=== PATIENT | male | born 1965 | race Caucasian/White ===

== ENCOUNTER 2019-09-13 20:27 | Emergency (ER) | payer OTHER ==
[~2019-09-13] VITALS: Ht 177.8 cm; Wt 122.5 kg
[2019-09-13] MEDS ORDERED: TRAZODONE HCL100 MG PO (20:43)
[2019-09-13] MEDS ORDERED: TERBINAFINE HC250 MG PO (20:43)
[2019-09-13] MEDS ORDERED: BASAGLAR K100 UNIT/1 SUB-Q (20:44)
[2019-09-13] MEDS ORDERED: DULOXETINE HCL60 MG PO (20:44)
[2019-09-13] MEDS ORDERED: HYDROXYZINE HCL50 MG PO (20:44)
[2019-09-13] MEDS ORDERED: VRAYLAR1.5 MG PO (20:47)
[2019-09-13] MEDS ORDERED: GLUCOPHAGE1000 MG PO (20:47)
[2019-09-13] MEDS ORDERED: NAPROXEN375 MG PO (20:47)
[2019-09-13] MEDS ORDERED: LIPITOR20 MG PO (20:48)
[2019-09-13] MEDS ORDERED: LISINOPRIL10 MG PO (20:48)
[2019-09-13] MEDS ORDERED: ASPIR 8181 MG PO (20:48)
[2019-09-13] MEDS ORDERED: AFREZZA SUB-Q (20:50)
[2019-09-13] MEDS ORDERED: KEFLEX500 MG PO (22:57)
== END 2019-09-13 23:06 | disposition home or self-care (01) ==
LOC: ED 20:27
DX: L08.9 Local infection of the skin and subcutaneous tissue, unspecified (principal); E11.9 Type 2 diabetes mellitus without complications; F31.9 Bipolar disorder, unspecified; Z87.891 Personal history of nicotine dependence; Z88.2 Allergy status to sulfonamides; Z79.899 Other long term (current) drug therapy
CPT/HCPCS: 99283; A9270

== ENCOUNTER 2019-11-22 17:49 | Emergency (ER) | payer OTHER ==
[~2019-11-22] VITALS: Ht 177.8 cm; Wt 128.8 kg
[~2019-11-22 17:49] MED LIST: AFREZZA SUB-Q; ASPIR 8181 MG PO; BASAGLAR K100 UNIT/1 SUB-Q; DULOXETINE HCL60 MG PO; GLUCOPHAGE1000 MG PO; HYDROXYZINE HCL50 MG PO; KEFLEX500 MG PO; LIPITOR20 MG PO; LISINOPRIL10 MG PO; NAPROXEN375 MG PO; TERBINAFINE HC250 MG PO; TRAZODONE HCL100 MG PO; VRAYLAR1.5 MG PO
--- OUTSIDE RECORDS SUMMARY | 2019-11-22 17:52 | XMS ---
PreManage Notification: MARGARITA LENTZ Security Toe Former Events No recent Security Events currently on file CRITERIA MET - [facility] CARE PROVIDERS There are no care providers on record at this time. Hakeem has no Care Guidelines for this patient. [place] VISIT COUNT (12 MO.) 2 ROSE Chapin TOTAL 2 NOTE: Visits indicate total known visits. ED/UCC VISIT TRACKING (12 MO.) 11/22/2019 17:49 RO[facility] [place] TYPE: Emergency COMPLAINT: - CHEST PAIN 09/13/2019 20:28 [facility] [place] TYPE: Emergency COMPLAINT: - POSS. WOUND INFECTION DIAGNOSES: - Local infection of the skin and subcutaneous tissue, unspecif - Type 2 diabetes mellitus without complications - Bipolar disorder, unspecified - Other intermodal truck driver (current) drug therapy - Allergy status to sulfonamides status - Personal history of nicotine dependence INPATIENT VISIT TRACKING (12 MO.) No inpatient visits to display in this time frame [email or web address]
[2019-11-22] MEDS ORDERED: VRAYLAR6 MG PO (18:04)
[2019-11-22] MEDS ORDERED: CLONAZEPAM1 MG PO (18:04)
[2019-11-22] MEDS ORDERED: NOVOLIN R100 UNIT/1 INJ (18:04)
--- NOTE | 2019-11-23 12:11 | EKG ---
[facility] [address] [place] [address] Signed Normal sinus rhythm Low voltage QRS Cannot rule out Inferior infarct , age undetermined Abnormal ECG When compared with ECG of 03-AUG-2019 11:37, Minimal criteria for Inferior infarct are now present T wave inversion now evident in Inferior leads Confirmed by JULIANA HOLM DO ([id number]) on 11/23/2019 12:11:46 PM Electronically Signed By: JULIANA HOLM DO 11/23/19 1211 PATIENT NAME: MARGARITA LENTZ Electrocardiogram DATE OF : 61 PHYSICIAN: JULIANA HOLM DO REPORT #: [id number] REPORT IS CONFIDENTIAL AND NOT TO BE RELEASED WITHOUT AUTHORIZATION
== END 2019-11-22 21:05 | disposition short-term general hospital (02) ==
LOC: ED 17:49
DX: I21.4 Non-ST elevation (NSTEMI) myocardial infarction (principal); E11.9 Type 2 diabetes mellitus without complications; F17.200 Nicotine dependence, unspecified, uncomplicated; Z88.0 Allergy status to penicillin; Z91.030 Bee allergy status; Z88.5 Allergy status to narcotic agent; Z79.899 Other long term (current) drug therapy
CPT/HCPCS: 71045; 80053; 83735; 84484; 85025; 85379; 93005; 93010; 96372; 99285-25; J1650; J7030

== ENCOUNTER 2020-04-25 09:27 | Emergency (ER) | payer OTHER ==
[~2020-04-25] VITALS: Ht 177.8 cm; Wt 117.6 kg
--- OUTSIDE RECORDS SUMMARY | ~2020-04-25 | XMS | Encounter Summary ---
Demographics + + + | Address | [address] | | | [place] [address] | + + + | Home Phone | | + + + | Preferred Language | Unknown | + + + | Marital Status | | + + + | Catholic Affiliation | Unknown | + + + | Race | White | + + + | Ethnic Group | Not or | + + + Author + + + | Author | [facility] | | | and [place] | + + + | Organization | [facility] | | | and [place] | + + + | Address | Unknown | + + + | Phone | Unavailable | + + + Support + + +---------+ + | Name | Relationship | Address | Phone | + + +---------+ + | Provided None | ECON | Unknown | | + + +---------+ + Care Team Providers + +------+ + | Care Custom Decorating Consultant Name | Role | Phone | + +------+ + | Sacha Cline MD | PCP | | + +------+ + Reason for Visit +--------+--------+ + | Reason | Onset | Comments | | | Date | | +--------+--------+ + | Other | 12/06/ | plan of care | | | 2020 | | +--------+--------+ + Encounter Details +--------+ + + + + | Date | Type | Department | Care Team | Description | +--------+ + + + + | 12/06/ | Telephone | [facility] [place] | Edd Mccloud MD | Other (plan of care) | | 2019 | | CARDIOLOGY [address] | | | | | [place], | [place], [place] | | | | | [place] [address] | [address] | | | | | [phone] | | | +--------+ + + + + Social History + +-------+ +--------+ + | Tobacco Use | Types | Packs/Day | Years | Date | | | | | Used | | + +-------+ +--------+ + | Current Every Day | | 1 | | Started: 10/10/2019 | | Smoker | | | | | + +-------+ +--------+ + + +---+---+---+ | Smokeless Tobacco: | | | | | Never Used | | | | + +---+---+---+ + + +---------+ + | Alcohol Use | Drinks/Week | oz/Week | Comments | + + +---------+ + | Never | | | | + + +---------+ + + + + + | Alcohol Habits | Answer | Date Recorded | + + + + | How often do you have a drink containing | Never | 11/22/2019 | | alcohol? | | | + + + + | How many drinks containing alcohol do you | Not asked | | | have on a typical day when you are | | | | drinking? | | | + + + + | How often do you have six or more drinks on | Not asked | | | one occasion? | | | + + + + + + + | Sex Assigned at | Date Recorded | | | | + + + | Not on file | | + + + documented as of this encounter Miscellaneous Notes Telephone Encounter - Tyra Simpson - 12/09/2019 3:14 PM PDT01/10/20 @ 1130Kishorei hitesh signed by Tyra Simpson at 12/09/2019 3:14 PM PDTTelephone Encounter - Tyra Simpson - 12/07/2019 9:38 AM PDTCalled lvm for patient to schedule 30 day follow up with Dr. Mccloud Called Dr. Cline's office requested referral from [place], she will work on getting it reinaldo roved sent over elepho ne Encounter - Sarita Sneed RN - 12/07/2019 7:53 AM PDTI will ask PSR's to please coor dinate appointment with patient ...........................................Sarita Sneed RN, on 12/07/19 at 7:53 AM elephone Encounter - Sarita Sneed RN - 12/07/2019 7:53 AM PDT----- Message from Rosanne Field RN sent a t 12/06/2019 3:37 PM PDT ----- Regarding: follow up apt Please schedule 30 day follow up appointment. Rosanne Field RN documented in this e ncounter Plan of Treatment Not on filedocumented as of this encounter Visit Diagnoses Not on filedocumented in this encounter"
--- OUTSIDE RECORDS SUMMARY | ~2020-04-25 | XMS | Encounter Summary ---
Demographics + + + | Address | [address] | | | [place] [address] | + + + | Home Phone | | + + + | Preferred Language | Unknown | + + + | Marital Status | | + + + | Evangelical Affiliation | Unknown | + + + | Race | White | + + + | Ethnic Group | Not or | + + + Author + + + | Author | [facility] | | | and [place] | + + + | Organization | [facility] | | | and [...] Team Providers + +------+ + | Care Wildlife Control Agent Name | Role | Phone | + +------+ + | Sacha Cline MD | PCP | | + +------+ + Reason for Visit +--------+--------+ + | Reason | Onset | Comments | | | Date | | +--------+--------+ + | Other | 03/26/ | no show for test | | | 2020 | | +--------+--------+ + Encounter Details +--------+ + + + + | Date | Type | Department | Care Team | Description | +--------+ + + + + | 03/26/ | Telephone | [facility] | Edd [facility]cloud MD | Other (no show for | 2019 | | CARDIOLOGY [address] | test) | | | | [place], | [place] | | | | | [place] [address] | [address] | | | | | [phone] | | | +--------+ + + + [...] this encounter Miscellaneous Notes Telephone Encounter - Sarita Sneed RN - 03/26/2020 1:00 PM PDTAttempted to contact graham valentino by home number, received a recording that the number is no longer in service. There a re no other contacts listed in chart. ...........................................Sarita stone, RN, on 03/26/20 at 1:00 PM PDT elephone Encounter - Sarita Sneed RN - 03/26/2020 7:33 AM PDTPatient has an appointment for follow up on 04/17/20 ...........................................Sarita Sneed RN, on 03/26/20 at 7: 33 AM PDT elephone Encounter - Sarita Sneed RN - 03/26/2020 7:33 AM PDT----- Message from Vincent Longo RRT sent at 03/23/2020 10:25 AM PDT ----- Regarding: no show for stress test Patient of Dr Mccloud was a no show for his stress test today documented in this e ncounter Plan of Treatment Not on filedocumented as of this encounter Visit Diagnoses Not on filedocumented in this encounter"
--- OUTSIDE RECORDS SUMMARY | ~2020-04-25 | XMS | Encounter Summary ---
Demographics + + + | Address | [address] | | | [place] [address] | + + + | Home Phone | | + + + | Preferred Language | Unknown | + + + | Marital Status | | + + + | Pentecostal Affiliation | Unknown | + + + | Race | White | + + + | Ethnic Group | Not or | + + + Author + + + | Author | [facility] | | | and [place] | + + + | Organization | [facility] | | | [...] Team Providers + +------+ + | Care Hybrid Derivatives Trader Name | Role | Phone | + +------+ + | Sacha Cline MD | PCP | | + +------+ + Reason for Referral Diagnostic/Screening (Routine) + +--------+ + + + + | Status | Reason | Specialty | Diagnoses / | Referred By | Referred To | | | | | Procedures | Contact | Contact | + +--------+ + + + + | Authorized | | Radiology | Diagnoses | [place], | [facility] | | | | | NSTEMI | Edd Bates MD | Medicine | | | | | (non-ST | [address] | | | | | elevated | [address] | [place], | | | | | myocardial | [place], | [place] | | | | | infarction) | [place] [address] | [address] | | | | | (HCC) | Phone: | Phone: | | | | | Procedures | [phone] | [phone] | | | | | NM Nuclear | Fax: | Fax: | | | | | Stress Test | [phone] | [phone] | | | | | (Exercise) | | | + +--------+ + + + + Reason for Visit + + + | Reason | Comments | + + + | Hospital Follow-up | | + + + Encounter Details +--------+---------+ + + + | Date | Type | Department | Care Team | Description | +--------+---------+ + + + | 01/09/ | Office | [facility] [place] | Edd Mccloud MD | NSTEMI (non-ST | | 2019 | Visit | CARDIOLOGY [address] | elevated myocardial | | | | [place], | [place], [place] | infarction) (HCC) | | | | [place] [address] | [address] | (Primary Dx) | | | | [phone] | | | +--------+---------+ + + + Social History + +-------+ [...] + + documented as of this encounter Last Filed Vital Signs + + + + + | Vital Sign | Reading | Time Taken | Comments | + + + + + | Blood Pressure | 128/62 | 01/10/2020 9:29 AM | | | | | PDT | | + + + + + | Pulse | 76 | 01/10/2020 9:29 AM | | | | | PDT | | + + + + + | Temperature | - | - | | + + + + + | Respiratory Rate | 18 | 01/10/2020 9:29 AM | | | | | PDT | | + + + + + | Oxygen Saturation | - | - | | + + + + + | Inhaled Oxygen | - | - | | | Concentration | | | | + + + + + | Weight | 124 kg (273 lb 5.9 | 01/10/2020 9:29 AM | | | | oz) | PDT | | + + + + + | Height | 177.8 cm (5' 10") | 01/10/2020 9:29 AM | | | | | PDT | | + + + + + | Body Mass Index | 39.22 | 01/10/2020 9:29 AM | | | | | PDT | | + + + + + documented in this encounter Patient Instructions Patient Instructions Sergei Villeda RN - 01/10/2020 10:00 AM PDT Exercise Myoview Date: Check-in Time: Where to Check In: Instructions 1. Nothing to eat or drink anything 4 hours prior to test 2. DO NOT drink caffeine 12 hours prior to the test. 3. DO NOT take any Metoprolol or Nitro SL the night before or the morning of the test. 4. You can take all other medications the morning of the test with a small sip of water. 5. Please bring a list of your current medications with you. 6. Exercise Myoview: wear comfortable clothes and walking shoes. Resting Portion of test: Date: Check-in Time: Where to Check In: Follow up appointment: follow up after Stress Provider: Edd Mccloud MD Date: Check-In Time: documented in this encounter Progress Notes Edd Mccloud MD - 01/10/2020 10:00 AM PDT PATIENT NAME: Magdaleno Rick : 1965: AGE: 54 y.o. PRIMARY CARE: Sacha Cline MD OUTPATIENT FOLLOW UP VISIT Date of Service: 01/10/20 PROBLEMS ADDRESSED AT THIS VISIT: 1. NSTEMI (non-ST elevated myocardial infarction) (HCC) NM Nuclear Stress Test (Exercise) PRESENT ILLNESS: Magdaelno Rick is a 54 y.o. male had a recent occluded RCA. He states now that he richards s had some sharp pain in his chest going to his arms. This happens with exertion and reliev ed with nitroglycerin after 2 to 3 minutes. The symptoms are different from his an STEMI at which time he had more of a burning sensation. MEDICAL, SURGICAL, AND PERSONAL HISTORY Past Medical, Surgical, Family, and Social History details are found in EPIC and not reprod uced here. Changes since last visit: As noted above CURRENT PROBLEMS Patient Active Problem List Diagnosis NSTEMI (non-ST elevated myocardial infarction) CURRENT MEDICATIONS Current Outpatient Medications Medication Sig Dispense Refill albuterol 90 mcg/puff inhaler Inhale 1-2 puffs into the lungs every 4 hours as needed f or Wheezing. 1 Inhaler 0 aspirin 81 mg chewable tablet Chew and swallow 1 tablet Daily. 30 tablet 0 atorvaSTATin (LIPITOR) 80 MG tablet Take 1 tablet by mouth nightly. 30 tablet 0 cariprazine (VRAYLAR) 6 mg capsule Take 6 mg by mouth Daily Patient is taking 9mg daily . clopidogrel (PLAVIX) 75 mg tablet Take 1 tablet by mouth Daily. 90 tablet 0 DULoxetine (CYMBALTA) [address] capsule Take 60 mg by mouth Daily. hydrOXYzine (ATARAX) 50 MG tablet Take 100 mg by mouth nightly. insulin glargine (BASAGLAR KWIKPEN) 100 units/mL injection (pen) Inject 30 Units under the skin Daily. insulin regular (HUMULIN R, NOVOLIN R) 100 units/mL injection (vial) Inject 10 Units un nolan the skin 3 times daily (before meals). metFORMIN (GLUCOPHAGE) 1000 MG tablet Start 1/2 pill twice daily with meals on the a.m. of 11/26, increasing as tolerated to 1 pill twice daily. metoprolol tartrate (LOPRESSOR) 25 mg tablet Take 1 tablet by mouth 2 times daily. 100 tablet 0 nitroglycerin (NITROSTAT) 0.[address] 1 tablet under the tongue every 5 bradley xin as needed for Chest pain. 25 tablet 0 prazosin (MINIPRESS) 2 MG capsule Take 2 mg by mouth nightly. SUMAtriptan (IMITREX) 100 mg tablet Take 1 tablet by mouth 2 times daily, at least 2 ho urs between doses traZODone (DESYREL) 100 mg tablet Take 200 mg by mouth nightly. No current facility-administered medications for this visit. ALLERGIES Allergies Allergen Reactions Bee Venom Swelling Penicillins Shortness Of Breath Wasp Venom Protein Swelling Codeine Rash ROSNEW OR RECENT DATA: Exam centers radial pulse intact. Chest is clear. Vital signs are within normal limits. Strength shows no edema. ASSESSMENT: Atypical chest pains. Doubt any ischemic component. PLAN: Medication changes: None. Testing ordered today: Nuclear treadmill test. Return return after above. Electronically signed by: Edd Mccloud MD [facility] 01/10/2020 Portions of this chart may have been created with [employer] voice recognition software. Occasi onal wrong-word or sound-alike substitutions may have occurred due to the inherent fabian itations of voice recognition software. Please read the chart carefully and recognize, using context, where these substitutions have occurred. documented in this encounter Plan of Treatment + + +--------+ + + | Name | Type | Priori | Associated Diagnoses | Order Schedule | | | | ty | | | + + +--------+ + + | NM Nuclear Stress | Cardiac | Routin | NSTEMI (non-ST | Expected: | | Test (Exercise) | Nuclear | e | elevated myocardial | 01/10/2020, Expires: | | | Medicine | | infarction) ([facility]) | 01/09/2021 | + + +--------+ + + documented as of this encounter Visit Diagnoses + + | Diagnosis | + + | NSTEMI (non-ST elevated myocardial infarction) ([facility]) - Primary Acute myocardial | | infarction, subendocardial infarction, episode of care unspecified | + + documented in this encounter
--- OUTSIDE RECORDS SUMMARY | ~2020-04-25 | XMS | Encounter Summary ---
Demographics + + + | Address | [address] | | | [place] [address] | + + + | Home Phone | | + + + | Preferred Language | Unknown | + + + | Marital Status | | + + + | Rastafarian Affiliation | UNK | + + + | Race | White | + + + | Ethnic Group | Not or | + + + Author + + + | Author | [facility] | + + + | Organization | [facility] | + + + | Address | Unknown | + + + | Phone | Unavailable | + + + Support + + +---------+ + | Name | Relationship | Address | Phone | + + +---------+ + | None Per Pt | ECON | Unknown | Unavailable | + + +---------+ + Care Team Providers + +------+ + | Care Director Consumer Name | Role | Phone | + +------+ + PCP | Unavailable | + +------+ + Encounter Details +--------+ + + + + | Date | Type | Department | Care Team | Description | +--------+ + + + + | 09/06/ | Procedure - | Vascular Surgery | Lab, Vascular | Vascular | | 1997 | | at [facility] [address] | | | | | Transcribed | [address] | | | | | | Physicians [place], | | | | | | [address] Floor | | | | | | [place], [place] | | | | | | [address] | | | | | | [phone] | | | +--------+ + + + + Social History + +-------+ +--------+------+ | Tobacco Use | Types | Packs/Day | Years | Date | | | | | Used | | + +-------+ +--------+------+ | Never Assessed | | | | | + +-------+ +--------+------+ + + + | Sex Assigned at | Date Recorded | | | | + + + | Not on file | | + + + documented as of this encounter Procedure Notes Lab, Vascular - 09/06/1997 12:00 AM PSTAssociated Order(s): VASCULAR FLOW IMAGING, NONCARDI AC VASCULAR LAB DATE: 09/06/97 Referring Physician: Steve Examination: Peripheral arterial Clinical Indications: Left leg pain with walking Findings: In the right leg there is a palpable femoral, popliteal, and pedal pulse. The waveforms are normal and the pressure ratios vary from greater than 1.6 in the upper thigh to 1.22 at the ankle. There is a toe brachial index of 1.16. In the left leg there is a palpable femoral, popliteal, and pedal pulse. Waveforms are normal. The pressure ratios vary from greater than 1.58 in the upper thigh to 1.27 at the ankle with a toe brachial index of 1. The patient exercised on the treadmill and developed ankle and hip discomfort in the left leg after three minutes of walking. He was able to go for 5 minutes of walking with no ischemic pressure response to exercise in either lower extremity. Impression: Normal peripheral arterial examination. The patient's left hip pain with walking is not explained on the basis of axial artery vascular insufficiency. Asim Gunn M.D. GLM/lh A cc: documented in this encou nter Plan of Treatment Not on filedocumented as of this encounter Procedures + +--------+ + + + | Procedure Name | Priori | Date/Time | Associated Diagnosis | Comments | | | ty | | | | + +--------+ + + + | VASCULAR FLOW | | 09/06/1997 | | Results for this | | IMAGING, NONCARDIAC | | 12:00 AM | | procedure are in the | | - VASC LAB | | PST | | results section. | + +--------+ + + + documented in this encounter Results VASCULAR FLOW IMAGING, NONCARDIAC (09/06/1997 12:00 AM PST) + + | Procedure Note | + + | 09/06/1997 12:00 AM PST | | VASCULAR LAB DATE: 09/06/97 | | | | Referring Physician: Steve | | | | Examination: Peripheral arterial | | | | Clinical Indications: Left leg pain with walking | | | | Findings: In the right leg there is a palpable femoral, popliteal, and pedal | | pulse. The waveforms are normal and the pressure ratios vary from greater | | than 1.6 in the upper thigh to 1.22 at the ankle. There is a toe brachial | | index of 1.16. In the left leg there is a palpable femoral, popliteal, and | | pedal pulse. Waveforms are normal. The pressure ratios vary from greater | | than 1.58 in the upper thigh to 1.27 at the ankle with a toe brachial index | | of 1. | | | | The patient exercised on the treadmill and developed ankle and hip | | discomfort in the left leg after three minutes of walking. He was able to | | go for 5 minutes of walking with no ischemic pressure response to exercise | | in either lower extremity. | | | | Impression: Normal peripheral arterial examination. The patient's left hip | | pain with walking is not explained on the basis of axial artery vascular | | insufficiency. | | | | | | | | | | | | | | | | | | | | | | | | | | | | Asim Gunn M.D. | | | | RAF/lh | | | | A | | cc: | | | + + documented in this encounter Visit Diagnoses Not on filedocumented in this encounter"
--- OUTSIDE RECORDS SUMMARY | ~2020-04-25 | XMS | Encounter Summary ---
Demographics + + + | Address | [address] | | | [place] [address] | + + + | Home Phone | | + + + | Preferred Language | Unknown | + + + | Marital Status | | + + + | Advent Affiliation | UNK | + + + | Race | White | + + + | Ethnic Group | Not or | + + + Author + + + | Author | [facility] | + + + | Organization | [facility] | + + + | Address | Unknown | + + + | Phone | Unavailable | + + + Support + + +---------+ + | Name | Relationship | Address | Phone | + + +---------+ + | None Per Pt | ECON | Unknown | Unavailable | + + +---------+ + Care Team Providers + +------+ + | Care Copyright Clerk Name | Role | Phone | + +------+ + PCP | Unavailable | + +------+ + Encounter Details +--------+ + + + + | Date | Type | Department | Care Team | Description | +--------+ + + + + | 09/19/ | Abstract | Neurology at | Unknown . | | | 2019 | | [facility] & | | | | | | Healing [address] | | | | | | kathi [facility] | | | | | | [facility] and Healing, | | | | | | [facility] , | | | | | | Floor [place], [place] | | | | | | [address] | | | | | | [phone] | | | +--------+ + + + [...] + + documented as of this encounter Plan of Treatment Not on filedocumented as of this encounter Visit Diagnoses Not on filedocumented in this encounter"
--- OUTSIDE RECORDS SUMMARY | ~2020-04-25 | XMS | Encounter Summary ---
Demographics + + + | Address | [address] | | | [place] [address] | + + + | Home Phone | | + + + | Preferred Language | Unknown | + + + | Marital Status | | + + + | Baptist Affiliation | UNK | + + + | Race | White | + + + | Ethnic Group | Not or | + + + Author + + + | Author | [facility] | + + + | Organization | [facility] | + + + | Address | Unknown | + + + | Phone | Unavailable | + + + Support + + +---------+ + | Name | Relationship | Address | Phone | + + +---------+ + | None Per Pt | ECON | Unknown | Unavailable | + + +---------+ + Care Team Providers + +------+ + | Care Agricultural Engineering Technologist Name | Role | Phone | + +------+ + | Pending Pcp Addition | PCP | Unavailable | + +------+ + Reason for Visit Intake Referral (Routine) +--------+--------+ + + + + | Status | Reason | Specialty | Diagnoses / | Referred By | Referred To | | | | | Procedures | Contact | Contact | +--------+--------+ + + + + | Closed | | Neurology | Diagnoses | [place], | [facility] | | | | | Parkinson's | Sacha Das MD | Disorder Chh1 | | | | | disease | [place] | [address] | | | | | Procedures | Primary Care | [facility] | | | | | [place] NEW | Clinic | for Health | | | | | PATIENT | [address] and Healing, | | | | | [address] [place] | [place] | [address], | | | | | EST PATIENT | [place], | 8th Floor | | | | | LEVEL V | [place] [address] | [place], [place] | | | | | | Phone: | [address] | | | | | | [phone] | Phone: | | | | | | Fax: | [phone] | | | | | | [phone] | Fax: | | | | | | | [phone] | +--------+--------+ + + + + Encounter Details +--------+ + + + + | Date | Type | Department | Care Team | Description | +--------+ + + + + | 11/20/ | Video/TeleH | Neurology Movement | [place], | | | 2019 | [facility] | Disorders Clinic at | MD Beryl [address] | | | | [address] | [facility] | [facility] | | | | | and Healing [address] | [place], [place] | | | | | [facility] | [address] | | | | | Health and Healing, | [phone] | | | | | [facility] | | | | | | Floor [facility] [place] | | | | | | [address] | | | | | | [phone] | | | +--------+ + + + [...] + + documented as of this encounter Progress Notes Beryl Hamilton MD - 11/21/2019 3:55 PM [facility] called the patient. He let me know that jerrod armenta has not been able to download the mychart. He received a call earlier today confirming the phone visit. I explained that I need to have a virtual visit with him in order to be able to examine him . I will ask that he reschedule this appointment after the Mychart is activated. Beryl Hamilton MD. MSCE, Pulp Grinder of Neurology [facility] [address] [place] [address] documented in this encounter Plan of Treatment Not on filedocumented as of this encounter Visit Diagnoses + + | Diagnosis | + + | Parkinson's disease (HCC) - Primary Paralysis agitans | + + documented in this encounter"
--- OUTSIDE RECORDS SUMMARY | ~2020-04-25 | XMS | Encounter Summary ---
Demographics + + + | Address | [address] | | | [place] [address] | + + + | Home Phone | | + + + | Preferred Language | Unknown | + + + | Marital Status | | + + + | Spiritism Affiliation | UNK | + + + | Race | White | + + + | Ethnic Group | Not or | + + + Author + + + | Author | [facility] | + + + | Organization | [facility] | + + + | Address | Unknown | + + + | Phone | Unavailable | + + + Support + + +---------+ + | Name | Relationship | Address | Phone | + + +---------+ + | None Per Pt | ECON | Unknown | Unavailable | + + +---------+ + Care Team Providers + +------+ + | Care Electric Motor Repairing Supervisor Name | Role | Phone | + +------+ + PCP | Unavailable | + +------+ + Encounter Details +--------+ + + + + | Date | Type | Department | Care Team | Description | +--------+ + + + + | 09/19/ | Abstract | Neurology at | Clinic, Neurology | | | 2020 | | [facility] & | | | | | | Healing [address] | | | | | | [facility] for | | | | | | Health and Healing, | | | | | | Building | | | | | | Floor [place], [place] | | | | | | [address] | | | | | | [phone] | | | +--------+ + + + [...]
--- OUTSIDE RECORDS SUMMARY | ~2020-04-25 | XMS | Encounter Summary ---
Demographics + + + | Address | [address] | | | [place] [address] | + + + | Home Phone | | + + + | Preferred Language | Unknown | + + + | Marital Status | | + + + | Gnosticism Affiliation | Unknown | + + + | Race | White | + + + | Ethnic Group | Not or | + + + Author + + + | Author | [facility] | | | and [place] | + + + | Organization | [facility] | | | and [...] Team Providers + +------+ + | Care Stopper Maker Name | Role | Phone | + +------+ + | Sacha Cline MD | PCP | | + +------+ + Reason for Visit + +--------+ + | Reason | Onset | Comments | | | Date | | + +--------+ + | Follow-up | 12/05/ | | | | 2020 | | + +--------+ + Encounter Details +--------+ + + + + | Date | Type | Department | Care Team | Description | +--------+ + + + + | 12/05/ | Telephone | [facility] | Rosanne Field RN | Follow-up | | 2019 | | [facility] | | | | | | [address] | | | | | | [place] | | | | | | [address] | | | | | | [phone] | | | +--------+ + + + [...] this encounter Miscellaneous Notes Telephone Encounter - Rosanne Field RN - 12/06/2019 3:36 PM DANIELLE made follow up phone c all to patient post PCI. Call made to ensure cardiac rehab referral has been made, 30 day fo [facility] up appointment has been scheduled, as well as ensuring that the patient was able to porfirio l prescription after discharge. RN answered all pertinent questions and concerns. Rosanne boss RN documented in this enc ounter Plan of Treatment Not on filedocumented as of this encounter Visit Diagnoses Not on filedocumented in this encounter"
--- OUTSIDE RECORDS SUMMARY | ~2020-04-25 | XMS | Encounter Summary ---
Demographics + + + | Address | [address] | | | [place] [address] | + + + | Home Phone | | + + + | Preferred Language | Unknown | + + + | Marital Status | | + + + | Hindu Affiliation | UNK | + + + | Race | White | + + + | Ethnic Group | Not or | + + + Author + + + | Author | [facility] | + + + | Organization | [facility] | + + + | Address | Unknown | + + + | Phone | Unavailable | + + + Support + + +---------+ + | Name | Relationship | Address | Phone | + + +---------+ + | None Per Pt | ECON | Unknown | Unavailable | + + +---------+ + Care Team Providers + +------+ + | Care Zoning Administrator Name | Role | Phone | + +------+ + PCP | Unavailable | + +------+ + Encounter Details +--------+ + + + + | Date | Type | Department | Care Team | Description | +--------+ + + + + | 08/23/ | Procedure - | Vascular Surgery | Lab, Vascular | Vascular | | 1997 | | at [facility] [address] | | | | | Transcribed | [address] | | | | | | Physicians [place], | | | | | | [address]nd Floor | | | | | | [place], [place] | | | | | | [address] | | | | | | [phone] | | | +--------+ + + + [...] this encounter Procedure Notes Lab, Vascular - 08/23/1997 12:00 AM PSTAssociated Order(s): VASCULAR FLOW IMAGING, NONCARDI AC VASCULAR LAB DATE: 08/23/97 Referring Physician: Steve Examination: Chronic venous Clinical Indications: Left leg edema with walking, some pain Findings: Duplex scanning shows no evidence of valvular reflux in the right leg. There is significant reflux in the left popliteal vein and in the left lesser saphenous vein. Venous recovery time and venous outflow testing are normal bilaterally. Impression: Mildly abnormal venous examination demonstrating hemodynamically significant deep and superficial venous valvular incompetence in the left leg. Michael Ibrahim Jr., MD LMT/nahomy P cc: documented in this encou nter Plan of Treatment Not on filedocumented as of this encounter Procedures + +--------+ + + + | Procedure Name | Priori | Date/Time | Associated Diagnosis | Comments | | | ty | | | | + +--------+ + + + | VASCULAR FLOW | | 08/23/1997 | | Results for this | | IMAGING, NONCARDIAC | | 12:00 AM | | procedure are in the | | - VASC LAB | | PST | | results section. | + +--------+ + + + documented in this encounter Results VASCULAR FLOW IMAGING, NONCARDIAC (08/23/1997 12:00 AM PST) + + | Procedure Note | + + | 08/23/1997 12:00 AM PST | | VASCULAR LAB DATE: 08/23/97 | | | | Referring Physician: Steve | | | | Examination: Chronic venous | | | | Clinical Indications: Left leg edema with walking, some pain | | | | Findings: Duplex scanning shows no evidence of valvular reflux in the right | | leg. There is significant reflux in the left popliteal vein and in the left | | lesser saphenous vein. Venous recovery time and venous outflow testing are | | normal bilaterally. | | | | Impression: Mildly abnormal venous examination demonstrating hemodynamically | | significant deep and superficial venous valvular incompetence in the left | | leg. | | | | | | | | | | | | | | | | | | | | | | | | | | | | | | | | | | Michael Ibrahim Jr., MD | | | | LMT/lh | | | | P | | cc: | | | + + documented in this encounter Visit Diagnoses Not on filedocumented in this encounter"
--- OUTSIDE RECORDS SUMMARY | ~2020-04-25 | XMS | Encounter Summary ---
Demographics + + + | Address | [address] | | | [place] [address] | + + + | Home Phone | | + + + | Preferred Language | Unknown | + + + | Marital Status | | + + + | Hinduism Affiliation | Unknown | + + + | Race | White | + + + | Ethnic Group | Not or | + + + Author + + + | Author | [facility] | | | and [place] | + + + | Organization | [facility] | | [...] Team Providers + +------+ + | Care Manager Sports Name | Role | Phone | + +------+ + | No, Physician | PCP | Unavailable | + +------+ + Reason for Visit Auth/Cert +--------+--------+ + + + + | Status | Reason | Specialty | Diagnoses / | Referred By | Referred To | | | | | Procedures | Contact | Contact | +--------+--------+ + + + + | | | | Diagnoses | | | | | | | NSTEMI | | | | | | | (non-ST | | | | | | | elevated | | | | | | | myocardial | | | | | | | infarction) | | | | | | | (HCC) | | | | | | | NSTEMI | | | +--------+--------+ + + + + Encounter Details +--------+---------+ + + + | Date | Type | Department | Care Team | Description | +--------+---------+ + + + | 11/22/ | Surgery | [facility] | Edd Mccloud MD | CV COR ANGIO | | 2019 | | MED CTR CV INTRA OP | [address] | | | | | [address] | [place] | | | | | [place] | [id number] | | | | | [address] | | | | | | [phone] | | | +--------+---------+ + + + [...] | | | + +---+---+---+ + + | Tobacco Cessation: Ready to Quit: No; Counseling Given: No | + + + + +---------+ + | Alcohol Use [...] + + + | Blood Pressure | 109/72 | 11/23/2019 1:31 PM | | | | | PDT | | + + + + + | Pulse | 69 | 11/23/2019 1:31 PM | | | | | PDT | | + + + + + | Temperature | 37.1 C (98.8 F) | 11/23/2019 11:03 AM | | | | | PDT | | + + + + + | Respiratory Rate | 14 | 11/23/2019 1:31 PM | | | | | PDT | | + + + + + | Oxygen Saturation | 95% | 11/23/2019 11:03 AM | | | | | PDT | | + + + + + | Inhaled Oxygen | - | - | | | Concentration | | | | + + + + + | Weight | 123.4 kg (272 lb 0.8 | 11/22/2019 10:51 PM | | | | oz) | PDT | | + + + + + | Height | 177.8 cm (5' 10") | 11/22/2019 10:50 PM | | | | | PDT | | + + + + + | Body Mass Index | 39.76 | 11/22/2019 10:50 PM | | | | | PDT | | + + + + + documented in this encounter Discharge Summaries Naren Velazco MD - 11/24/2019 10:40 AM PDT [facility] DISCHARGE SUMMARY Pt. Name/Age/: Magdaleno Rick 54 y.o. 1965 Date of Admission: 11/22/2019 Date of Discharge: 11/24/2019 Admitting Physician: Burak Covington MD Primary Care Provider: Sacha Cline MD Discharging Physician: Naren Velazco MD DISCHARGE DIAGNOSES: 1. NSTEMI 2. Type 2 diabetes mellitus, insulin treated 3. COPD DISCHARGE MEDICATIONS: Discharge Medications New Medications Details albuterol 90 mcg/puff inhaler Inhale 1-2 puffs into the lungs every 4 hours as needed for Wheezing. aspirin 81 mg chewable tablet Replaces: aspirin 81 mg EC tablet Chew and swallow 1 tablet Daily. Start: November 25, 2019 clopidogrel 75 mg tablet Take 1 tablet by mouth Daily. aka: PLAVIX Start: November 25, 2019 metoprolol tartrate 25 mg tablet Take 1 tablet by mouth 2 times daily. aka: LOPRESSOR nitroglycerin 0.[address] 1 tablet under the tongue every 5 minutes as needed for Chest pain. aka: NITROSTAT Changed Medications Details atorvaSTATin 80 MG tablet Take 1 tablet by mouth nightly. What changed: medication strength how much to take aka: LIPITOR metFORMIN 1000 MG tablet Start 1/2 pill twice daily with meals on the a.m. of 11/26, increasing as tolerated to 1 pi ll twice daily. What changed: how much to take how to take this when to take this additional instructions aka: GLUCOPHAGE Unchanged Medications Details BASAGLAR KWIKPEN 100 units/mL injection (pen) Generic drug: insulin glargine Inject 30 Units under the skin Daily. cariprazine 6 mg capsule Start when taper up is finished, 1 capsule by mouth daily aka: VRAYLAR clonazePAM 1 mg tablet Take 1 mg by mouth nightly. aka: klonoPIN DULoxetine [address] capsule Take 120 mg by mouth Daily. aka: CYMBALTA hydrOXYzine 50 MG tablet Take 100 mg by mouth nightly. aka: ATARAX insulin regular 100 units/mL injection (vial) Inject 10 Units under the skin 3 times daily (before meals). aka: humuLIN R, novoLIN R prazosin 1 mg capsule 1 capsule by mouth at bedtime for 3 days, then take 2 capsules by mouth nightly thereafter aka: MINIPRESS SUMAtriptan 100 mg tablet Take 1 tablet by mouth 2 times daily, at least 2 hours between doses aka: IMITREX traZODone 100 mg tablet Take 200 mg by mouth nightly. aka: DESYREL Discontinued Medications aspirin 81 mg EC tablet Replaced by: aspirin 81 mg chewable tablet lisinopril 5 mg tablet aka: PRINIVIL, ZESTRIL naproxen 375 mg tablet aka: NAPROSYN terbinafine 250 MG tablet aka: LAMISIL zolpidem 10 mg tablet aka: AMBIEN DISCHARGE INSTRUCTIONS: Follow-up Information Sacha Cline MD. Go on 11/30/2019. Specialty: Family Medicine Why: hospital follow-up 11/30/2019 at 1500. Contact information: [address] [place] [address] RESULTS: Brief Op Note Signed Date of Service: 11/23/191538 Creation Time: 11/23/191538 []Hide copied text []Swathi for details BRIEF OPERATIVE NOTE [facility] Pt. Name/Age/: Magdaleno Rick 54 y.o. 1965 Med. Record Number: [id number] Date of admission: 11/22/2019 Date of Operation/Procedure: 11/23/2019 Preoperative Diagnosis: NSTEMI Postoperative Diagnosis: * NSTEMI (non-ST elevated myocardial infarction) ([facility]) [I21.4] Surgeon: Edd Mccloud MD Retail Associate Manager Bilingual: None Anesthesia Provider(s): No anesthesia staff entered. Anesthesia Type: Anesthesia type not filed in the log. Procedure(s): CV COR ANGIO CV LHC CV LV CV Stent CV Thrombectomy Operative Findings: Left coronary system was dominant with no significant lesions. The RCA was totally occluded and faint collaterals were seen distally from the left coronary system . Large thrombus load was demonstrated in the RCA. Inferior basilar hypokinesis was demons trated with a EF. Wound Closure: TR band Evidence of infection: No infection noted. Estimated Blood Loss: 20 cc IV Fluids: refer to anesthesia record Blood Transfusion: None Drains: none Specimen (s): * No specimens in log * Implants: Implant Name Type Inv. Item Serial No. Make Up Man Lot No. LRB No. Used STENT CRNRY XIENCE [id number] - [id number] STENT CRNRY XIENCE [id number] [facility] CULAR - ABVA N/A 1 Counts: Instrument, sponge, and needle counts were correct prior to closure and at the con clusion of the case. Complications: None Disposition: The patient was taken to Critical Care Immediate Post-Operative Condition: Stable Electronically signed by: Edd Mccloud MD, 11/23/2019, 3:39 PM Results for MAGDALENO RICK ( ) as of 12/01/2019 23:32 Ref. Range 11/23/2019 04:17 11/23/2019 10:59 Troponin I Latest Ref Range: <0.06 ng/mL 22.60 (HH) 18.96 (HH) Conclusion Patient presented with chest pains and elevated troponins. Chest pains decreased and repor tedly had resolved but was present on arrival to the Materials Analyst. Right radial approach was us ed. Coronary angiogram showed total occlusion of the RCA proximally. Left coronary system was normal and large. Collaterals to the distal RCA. Left ventriculogram showed an EF of 5 0% with mild inferior basilar hypokinesis. The LVEDP was elevated to 30. Because a significant thrombus load, after traversing thrombectomy was performed with aspir ation of organized dark clot. Angioplasty with 2.5 balloon followed by a 3.5 x 38 stent pos tdilated to 4.0. There was embolization of some thrombus into the PL branch without associa dior symptoms. Patient tolerated procedure without any problems. Conscious sedation was achieved with med ications administered by the Materials Analyst nurse under my supervision. Patient was given both on ly of Integrilin 10 mg cc intravenously and 10 cc down the coronary arteries. Vessels treat ed aggressively with Cardene and nitroglycerin IC. And was used for hemostasis. HOSPITAL COURSE: This 54 y/o male presented with chest pain, elevated troponin, and no ST elevation on EKG. He was initiated on nitroglycerin/metoprolol, aspirin, and lovenox. On 11/22 he was taken to angiography with the finding on occlusion of the right coronary artery with thrombus which w as treated with thrombectomy, angioplasty and stenting. The patients diabetes was controlled with a sliding scale insulin regimen. He tolerated low dose metoprolol only with some chronic bronchospasm and was instructed in the use of a albu terol inhaler with spacer. Instruction was given by the community educator and the patient had instruction on the impor tance of and risk of stopping dual platelet therapy. At the time of discharge follow up will be in [place] with appointment arranged for 11/29 PHYSICAL EXAM: Temp: 36.1 C (97 F), Pulse: 73, Resp: 15, BP: 109/61, SpO2 97 % on room air at flow rat e 2L/min Temp Min: 35.9 C (96.6 F) Max: 37.2 C (99 F) Weight: 123.4 kg (272 lb 0.8 oz) Patient seen and examined by me on discharge day Greater than 30 minutes were spent on discharge and coordination of post-hospital care. Electronically signed by: Naren Velazco MD, 11/24/2019 10:41 AM [facility] Portions of this chart may have been created with [employer] voice recognition software. Occasi onal wrong-word or sound-alike substitutions may have occurred due to the inherent fabian itations of voice recognition software. Please read the chart carefully and recognize, using context, where these substitutions have occurred documented in this encounter Discharge Instructions Instructions Betzy Johnson RN - 11/24/2019 Eating Heart-Healthy Foods Eating has a big impact on your heart health. In fact, eating healthier can improve several of your heart risks at once. For instance, it helps you manage weight, cholesterol, and blo od pressure. Here are ideas to help you make heart-healthy changes without giving up allth e foods and flavors you love. Getting started Talk with your healthcare provider about eating plans, such as the DASH or Mediterranean diet. You may also be referred to a dietitian. Change a few things at a time. Give yourself time to get used to a few eating changes be fore adding more. Work to create a tasty, healthy eating plan that you can stick to for the rest of your l mayra. Goals for healthy eating Below are some tips to improve your eating habits: Limit saturated fats and trans fats. Saturated fats raise your levels of cholesterol, so keep these fats to a minimum. They are found in foods such as fatty meats, whole milk, john paul se, and palm and coconut oils. Avoid trans fats because they lower good cholesterol as well as raise bad cholesterol. Trans fats are most often found in processed foods. Reduce sodium (salt) intake. Eating too much salt may increase your blood pressure. Limi t your sodium intake to 2,300 milligrams (mg) per day(the amount in 1 teaspoon of salt), o r less if your healthcare provider recommends it. Dining out less often and eating fewer pro cessed foods are two great ways to decrease the amount of salt you consume. Managing calories. A calorie is a unit of energy. Your body morgan calories for fuel, but if you eat more calories than your body morgan, the extras are stored as fat. Your healthcar e provider can help you create a diet plan to manage your calories. This will likely include eating healthier foods as well as exercising regularly. To help you track your progress, ke ep a diary to record what you eat and how often you exercise. Choose the right foods Aim to make these foods raz of your diet. If you have diabetes, you may have different recommendations than what is listed here: Fruits and vegetables provide plenty of nutrients without a lot of calories. At meals, f ill half your plate with these foods. Split the other half of your plate between whole grain s and lean protein. Whole grains are high in fiber and rich in vitamins and nutrients. Good choices include whole-wheat bread, pasta, and brown rice. Lean proteins give you nutrition with less fat. Good choices include fish, skinless chic abran, and beans. Low-fat or nonfat dairy provides nutrients without a lot of fat. Try low-fat or nonfat m ilk, cheese, or yogurt. Healthy fats can be good for you in small amounts. These are unsaturated fats, such as o live oil, nuts, and fish. Try to have at least 2 servings per week of fatty fish, such as sa lmon, sardines, mackerel, rainbow trout, and albacore tuna. These contain omega-3 fatty acid s, which are good for your heart. Flaxseed is another source of a heart-healthy fat. More on heart-healthy eating Read food labels Healthy eating starts at the grocery store. Be sure to pay attention to food labels on pack aged foods. Look for products that are high in fiber and protein, and low in saturated fat, cholesterol, and sodium. Avoid products that contain trans fat. And pay close attention to s erving size. For instance, if you plan to eat two servings, double all the numbers on the la bel. Prepare food right A santos part of healthy cooking is cutting down on added fat and salt. Look on the internet f or lower-fat, lower-sodium recipes. Also, try these tips: Remove fat from meat and skin from poultry before cooking. Skim fat from the surface of soups and sauces. Broil, boil, bake, steam, grill, and microwave food without added fats. Choose ingredients that spice up your food without adding calories, fat, or sodium. Try these items: horseradish, hot sauce, lemon, mustard, nonfat salad dressings, and vinegar. Fo r salt-free herbs and spices, try basil, cilantro, cinnamon, pepper, and fabiola. Date Last Reviewed: 04/05/201719998207-5485 [employer]. [address] [place] [address]. All righ ts reserved. This information is not intended as a substitute for professional medical care. Always follow your healthcare professional's instructions. Discharge Instructions for Heart Attack You have had a heart attack (acute myocardial infarction). A heart attack occurs when a ves luann that sends blood to your heart suddenly becomes blocked. This causes your heart not to w ork as well as it should. Follow these guidelines for home care and lifestyle changes. Home care Take your medicines exactly as directed. Don t skip doses. Talk with your healthcare p janice if your medicines aren't working for you. Together you can come up with another yonas tment plan. Remember that recovery after a heart attack takes time. Plan to rest for at least 4 to 8 weeks while you recover. Then return to normal activity when your doctor says it s OK. Ask your doctor about joining a heart rehabilitation program. This can help strengthen y our heart and lungs and give you more energy and confidence. Tell your doctor if you are feeling depressed. Feelings of sadness are common after a he art attack. But it is important to speak to someone or seek counselingif you are feeling o verwhelmed by these feelings. Call 911 right away if youhavechest pain or pain that goes to your shoulder, neck, o r back.Don't drive yourself to the hospital. Ask your family members to learn CPR. This is an important skill that can save lives whe n it's needed. Learn to take your own blood pressure and pulse. Keep a record of your results. Ask your doctor when you should seek emergency medical attention. He or she will tell you which bloo d pressure reading is dangerous. Lifestyle changes Your heart attack might have been caused by cardiovascular disease. Your healthcare provide r will work with you to make changes to your lifestyle. This will help the heart disease fro m getting worse. These changes will most likely be a combination of diet and exercise. Diet Your healthcare provider will tell you what changes you need to make to your diet. You may need to see a registered dietitian for help with these diet changes. These changes may inclu de: Cutting back on how much fat and cholesterol you eat Cutting back on how much salt (sodium) you eat, especially if you have high blood pressu re Eating more fresh vegetables and fruits Eating lean proteins such as fish, poultry, beans, and peas, and eating less red meat an d processed meats Using low-fat dairy products Using vegetable and nut oils in limited amounts Limiting how many sweets and processed foods such as chips, cookies, and baked goods you eat Limiting how often you eat out. And when you do eat out, making better food choices. Not eating fried or greasy foods, or foods high in saturated fat Exercise Your healthcare provider may tell you to get more exercise if you haven't been physically a ctive. Depending on your case, your provider may recommend that you get moderate to vigorous physical activity for at least 40 minutes each day, and for at least 3 to 4 days each week. A few examples of moderate to vigorous activity include: Walking at a brisk pace, about 3 to 4 miles per hour Jogging or running Swimming or water aerobics Hiking Dancing Martial arts Tennis Riding a bicycle or stationary bike Other changes Your healthcare provider may also recommend that you: Lose weight. If youare overweight or obese, your provider will work with you to lose e xtra pounds. Making diet changes and getting more exercise can help. A good goal is to lose your 10% of your body weight in one year. Stop smoking. Sign up for a stop-smoking program to make it more likely for you to quit for good. You can join a stop-smoking support group. Or ask your doctor about nicotine repla cement products. Learn to manage stress. Stress management techniques to help you deal with stress in you r home and work life. This will help you feel better emotionally and ease the strain on your heart. Follow-up Make a follow-up appointment as directed. Call 911 Call 911 right awayif you have: Chest pain that goes to your neck, jaw, back, or shoulder Shortness of breath When to call your healthcare provider Callyour healthcare provider right away if you have: Lightheadedness, dizziness, or fainting Feeling of irregular heartbeat or fast pulse Date Last Reviewed: 04/05/201619995628-0358 [employer]. [address] [place] [address], [place] [address]. All [facility] ts reserved. This information is not intended as a substitute for professional medical care. Always follow your healthcare professional's instructions. Tips for Taking Medicine It s easy to forget to take your medicine, especially when you take a lot of pills. But, to get the best results from medicines, always take them as directed. The tips on these page s can help you keep track. Staying on schedule Every medicine has a different purpose. So, each one needs to be taken as prescribed. Don t skip pills or stop taking a medicine, even when you feel fine. To stay on track try to: Take your medicine at set times. You could take it each morning with breakfast or right before you go to bed. Some medicines may need to be taken at certain times of the day, or wi th food. Ask your doctor if this is the case for any of your medicines. Find ways to remind yourself to take medicine. Use a pillbox or organize pills for the w [place]. Set your watch or cell phone alarm to go off when you re supposed to take your medici ne. Or, put a note on the bathroom mirror to remind yourself. Have your prescriptions refilled while you still have plenty of pills left. Keep in mind that certain suppliers, such as mail order pharmacies, may take longer to fill prescription s. When traveling, keep all medicines in your carry-on bag. This way you ll have them in case you and your checked luggage get . Also, bring copies of each of your prescrip tions when you travel. Safety tips Read the warning labels and usage instructions for each medicine you take. Also, keep these safety tips in mind: Get help organizing your pills if you need it. Taking more than one medicine can be conf using. A family member or friend can help prevent you from making a mistake that could be da ngerous to your health. Fill all your prescriptions at the same drug store. This way, your records are all in on e place. Ask your pharmacist or doctor for a fact sheet or other patient information when y ou start a new medicine. Tell your doctor and pharmacist if you have allergies to any medicine. Don t split your pills to save money. Talk to your doctor if you re having trouble p aying for your medicine. Never share medicine with anyone. Ask your pharmacy how you should dispose of old or medicine. Give a copy of your medicine list to a family member or close friend. Hold copies of eac h other s lists in case of emergency. Store medicines in a cool, dry, dark place not in a steamy bathroom. Make sure you tell your healthcare providers if you are taking any other supplements or drugs [id number]. If you have side effects Some medicines can cause side effects, such as nausea or dizziness. Tell your doctor if you have any side effects. He or she may change the dosage or schedule to reduce effects. Be sandoval re to keep taking your medicine as directed, and always talk to your healthcare team about h ow you feel. Your feedback will help the doctor find the best medicine plan for you. Date Last Reviewed: 12/05/201519994166-2987 [employer]. [address] [place] [address]. All righ ts reserved. This information is not intended as a substitute for professional medical care. Always follow your healthcare professional's instructions. Follow-Up: Please call [facility] in [place] to re-schedule your follow-up appointment with Henry Mcintosh. (They are aware you were in the hospital and that is why you missed your appointmen t on 11/23 at 1:30 pm.) Their phone number is [phone]. Please follow up with Dr. Cline at the [facility] on Thursday, 11/04 at 3:00 pm. Bring this packet (After Visit Summary) with you. Medication costs: Your medications should be covered by [place] Medicaid. If you still have trouble paying for prescriptions, please talk with Dr. Cline about lower-cost alternatives. Metoprolol and Clopidogrel (Plavix) are available at [facility] for a waite glynn of $4/thu each. Aspirin is available [id number] for approximately $4 for 100 pills. Discharge Instructions for Heart Attack You have had a heart attack (acute myocardial infarction). A heart attack occurs when a ves luann that sends blood to your heart suddenly becomes blocked. This causes your heart not to w ork as well as it should. Follow these guidelines for home care and lifestyle changes. Home care Take your medicines exactly as directed. Don t skip doses. Talk with your healthcare jazmyn camacho if your medicines aren't working for you. Together you can come up with another yonas tment plan. Remember that recovery after a heart attack takes time. Plan to rest for at least 4 to 8 weeks while you recover. Then return to normal activity when your doctor says it s OK. Ask your doctor about joining a heart rehabilitation program. This can help strengthen y our heart and lungs and give you more energy and confidence. Tell your doctor if you are feeling depressed. Feelings of sadness are common after a he art attack. But it is important to speak to someone or seek counselingif you are feeling o verwhelmed by these feelings. Call 911 right away if youhavechest pain or pain that goes to your shoulder, neck, o r back.Don't drive yourself to the hospital. Ask your family members to learn CPR. This is an important skill that can save lives whe n it's needed. Learn to take your own blood pressure and pulse. Keep a record of your results. Ask your doctor when you should seek emergency medical attention. He or she will tell you which bloo d pressure reading is dangerous. Lifestyle changes Your heart attack might have been caused by cardiovascular disease. Your healthcare provide r will work with you to make changes to your lifestyle. This will help the heart disease fro m getting worse. These changes will most likely be a combination of diet and exercise. Diet Your healthcare provider will tell you what changes you need to make to your diet. You may need to see a registered dietitian for help with these diet changes. These changes may inclu de: Cutting back on how much fat and cholesterol you eat Cutting back on how much salt (sodium) you eat, especially if you have high blood pressu re Eating more fresh vegetables and fruits Eating lean proteins such as fish, poultry, beans, and peas, and eating less red meat an d processed meats Using low-fat dairy products Using vegetable and nut oils in limited amounts Limiting how many sweets and processed foods such as chips, cookies, and baked goods you eat Limiting how often you eat out. And when you do eat out, making better food choices. Not eating fried or greasy foods, or foods high in saturated fat Exercise Your healthcare provider may tell you to get more exercise if you haven't been physically a ctive. Depending on your case, your provider may recommend that you get moderate to vigorous physical activity for at least 40 minutes each day, and for at least 3 to 4 days each week. A few examples of moderate to vigorous activity include: Walking at a brisk pace, about 3 to 4 miles per hour Jogging or running Swimming or water aerobics Hiking Dancing Martial arts Tennis Riding a bicycle or stationary bike Other changes Your healthcare provider may also recommend that you: Lose weight. If youare overweight or obese, your provider will work with you to lose e xtra pounds. Making diet changes and getting more exercise can help. A good goal is to lose your 10% of your body weight in one year. Stop smoking. Sign up for a stop-smoking program to make it more likely for you to quit for good. You can join a stop-smoking support group. Or ask your doctor about nicotine repla cement products. Learn to manage stress. Stress management techniques to help you deal with stress in you r home and work life. This will help you feel better emotionally and ease the strain on your heart. Follow-up Make a follow-up appointment as directed. Call 911 Call 911 right awayif you have: Chest pain that goes to your neck, jaw, back, or shoulder Shortness of breath When to call your healthcare provider Callyour healthcare provider right away if you have: Lightheadedness, dizziness, or fainting Feeling of irregular heartbeat or fast pulse Date Last Reviewed: 04/05/201619990249-1394 [facility] [employer]. [address] [place] [address]. All righ ts reserved. This information is not intended as a substitute for professional medical care. Always follow your healthcare professional's instructions. Heart Attack: Back at Home Once you re home, your goal for the first week or so is to take it easy. Then, slowly ret urn to regular activities. It may take about 4 to 8 weeks to get back to your normal routine . To ease the transition, allow yourself to rely on family and friends for support, and be e asy on yourself. Let friends and family support you Don t try to do it all alone. Ask family or friends for help. They may be glad to do some thing to show their concern. For instance: Let others help with chores, such as washing dishes, preparing meals, or buying grocerie s. Ask a family member or friend to join you in relaxing activities, such as playing games or watching movies. Invite a family member or friend on your appointments. Be easy on yourself As you begin your recovery, don t push yourself too hard. Remember, you re healing phys ically and emotionally. Keep these tips in mind: Take your medicines as prescribed by your doctor. Avoid activities that may cause chest pain or shortness of breath. Avoid exertion, excitement, and exposure to cold after a heavy meal. If you re feeling low, don t beat yourself up. Take your recovery one day at a time and don t give in to these feelings by staying in bed. Be sure to get up and get dressed e ach morning. Partake in activities that are easy but get you slowly back into the routine. Talk to someone every day. Date Last Reviewed: 12/05/201519997675-8300 [facility]. [address] [place] [address]. All righ ts reserved. This information is not intended as a substitute for professional medical care. Always follow your healthcare professional's instructions. Taking Your Medications You'll likely need to take several types of medicines after a heart attack. You may wonder: Do I really need to take so much medicine? The answer is yes. Medicine can be a vital part of healing. They can also help prevent another heart attack in the future. Be sure to take a ll medicines as directed. Getting started Keep a list of all your medicines. Know what they are, what they do, what happens if you don't take them, and how to take them. Keep that list with you at all times. Know what side effects to expect. If a side effect bothers you, doesn't go away, or gets worse, call your healthcare provider. Ask your provider or pharmacist about possible interactions between medicines. Check bef ore taking any [id number] medicine, herbs, or supplements. Try to get all prescriptions filled at the same pharmacy. This will help reduce the risk of interactions between medicines. Talk to your provider if you have any concerns about the cost of medicines. It's importa nt that you take all of them or find alternatives if you can't afford them. Types of medicines Aspirin and other anticoagulants (like clopidogrel) help prevent blood clots. RACHELE inhibitors help control blood pressure and reduce heart strain and weakening of the heart muscle. They also help with heart remodeling. Statins (like atorvastatin) help reduce cholesterol levels. Beta blockers (like metoprolol) help slow the heart rate and lower blood pressure. They can also help the heart pump. Nitroglycerin helps reduce the heart's workload and improves blood flow through the hear t. Hints for taking medicines Use a pillbox to store all the pills you need for the week. To be sure you don't skip or repeat a dose, write down when you take your medicine. Don't stop taking your medicines. This can be dangerous to your heart. Be sure to refill a prescription before it runs out. Take your medicines at the same time every day. Medications for related conditions Blood pressure medicines: High blood pressure is one of the most serious risks for heart attack. Medicine is likely needed to help manage this problem. It might take time to find t he best medicine for you. For best results, follow these tips: ? Don't stop taking high blood pressure medicine suddenly. This can make your blood pressur e shoot up quickly. ? Keep in mind that medicine works best when you're also eating heart-healthy foods, limiti ng sodium (salt), and getting regular exercise. Diabetes or cholesterol medicine: If health eating and activity aren't enough to manage these conditions, your healthcare provider may prescribe medicines to treat them. Be sure to take them as directed. Date Last Reviewed: 12/05/201519993389-9289 [facility]. [address] [place] [address], [place] [address]. All righ ts reserved. This information is not intended as a substitute for professional medical care. Always follow your healthcare professional's instructions. AttachmentsThe following attachments cannot be sent through Care Everywhere.COPD, What is ( Uzbek)COPD, Treatment for (Uzbek)Chronic Lung Disease: Preventing Lung Infections (Engli )Inhaler (Metered Dose), Discharge Instructions (Uzbek)Lung Disease, Chronic: Tips for Q uitting Smoking (Uzbek)documented in this encounter Medications at Time of Discharge + + + +---------+ + + | Medication | Sig | Dispensed | Refills | Start | End Date | | | | | | Date | | + + + +---------+ + + | albuterol 90 | Inhale 1-2 puffs | 1 | 0 | 11/24/19 | | | mcg/puff inhaler | into the lungs every | Inhaler | | 20 | | | | 4 hours as needed | | | | | | | for Wheezing. | | | | | + + + +---------+ + + | aspirin 81 mg | Chew and swallow 1 | 30 | 0 | 11/25/19 | | | chewable tablet | tablet Daily. | tablet | | 20 | | + + + +---------+ + + | atorvaSTATin | Take 1 tablet by | 30 | 0 | 11/24/19 | | | (LIPITOR) 80 MG | mouth nightly. | tablet | | 20 | | | tablet | | | | | | + + + +---------+ + + | cariprazine | Take 6 mg by mouth | | 0 | | | | (VRAYLAR) 6 mg | Daily Patient is | | | | | | capsule | taking 9mg daily. | | | | | + + + +---------+ + + | clopidogrel | Take 1 tablet by | 90 | 0 | 11/25/19 | | | (PLAVIX) 75 mg | mouth Daily. | tablet | | 20 | | | tablet | | | | | | + + + +---------+ + + | DULoxetine | Take 60 mg by mouth | | 0 | | | | (CYMBALTA) [address] | Daily. | | | | | | capsule | | | | | | + + + +---------+ + + | hydrOXYzine | Take 100 mg by mouth | | 0 | | | | (ATARAX) 50 MG | nightly. | | | | | | tablet | | | | | | + + + +---------+ + + | insulin glargine | Inject 30 Units | | 0 | | | | (BASAGLAR KWIKPEN) | under the skin | | | | | | 100 units/mL | Daily. | | | | | | injection (pen) | | | | | | + + + +---------+ + + | insulin regular | Inject 10 Units | | 0 | | | | (HUMULIN R, NOVOLIN | under the skin 3 | | | | | | R) 100 units/mL | times daily (before | | | | | | injection (vial) | meals). | | | | | + + + +---------+ + + | metFORMIN | Start /2 pill twice | | 0 | 11/24/19 | | | (GLUCOPHAGE) 1000 MG | daily with meals on | | | 20 | | | tablet | the a.m. of 11/26, | | | | | | | increasing as | | | | | | | tolerated to 1 pill | | | | | | | twice daily. | | | | | + + + +---------+ + + | metoprolol | Take 1 tablet by | 100 | 0 | 11/24/19 | | | tartrate (LOPRESSOR) | mouth 2 times daily. | tablet | | 20 | | | 25 mg tablet | | | | | | + + + +---------+ + + | nitroglycerin | Place 1 tablet under | 25 | 0 | 11/24/19 | | | (NITROSTAT) 0.4 mg | the tongue every 5 | tablet | | 20 | | | SL tablet | minutes as needed | | | | | | | for Chest pain. | | | | | + + + +---------+ + + | prazosin | Take 2 mg by mouth | | 0 | | | | (MINIPRESS) 2 MG | nightly. | | | | | | capsule | | | | | | + + + +---------+ + + | SUMAtriptan | Take 1 tablet by | | 0 | | | | (IMITREX) 100 mg | mouth 2 times daily, | | | | | | tablet | at least 2 hours | | | | | | | between doses | | | | | + + + +---------+ + + | traZODone | Take 200 mg by mouth | | 0 | | | | (DESYREL) 100 mg | nightly. | | | | | | tablet | | | | | | + + + +---------+ + + documented as of this encounter Progress Notes Naren Velazco MD - 11/24/2019 8:21 AM PDT [facility] Hospitalist Progress Note Magdaleno Rick is a 54 y.o. male ASSESSMENT and PLAN: Active Hospital Problems NSTEMI (non-ST elevated myocardial infarction) Patient with occluded right coronary artery status post thrombectomy and stent placement ye sterday. This a.m. he had wheezing. Chest x-ray did not show fluid overload nor do I's and O's suggest this. Reports that he has had wheezing in the past. He was off cigarettes for 25 years and in September of this year began smoking again. Reports audible wheeze at home but is never been instructed in the use of an inhaler. Was actually wheezing when he developed chest pain prior to admission. Is on metoprolol 25 mg twice daily after receiving 3 times daily dosing yesterday. Will in struct him in the use of an albuterol inhaler prior to discharge and strongly encouraged him to discontinue smoking. Type 2 diabetes mellitus Currently insulin treated with patient reporting good sugar control. Proteinuria on UA. M icroalbumin will need to be obtained as an outpatient and would hold on initiating RACHELE inhib itor until he is seen by his PCP with recent contrast load. COPD Discussed illness with patient and association with smoking. Instruct in the use of an alb uterol inhaler. SUBJECTIVE: Patient reports he feels much improved today. Did have wheezing this a.m. which has resol ed. VITALS: Temp: 36.1 C (97 F), Pulse: 73, Resp: 15, BP: 109/61, SpO2 97 % on room air at flow rat e 2L/min Temp Min: 35.9 C (96.6 F) Max: 37.2 C (99 F) Weight: 123.4 kg (272 lb 0.8 oz) Intake/Output Summary (Last 24 hours) at 11/24/2019 0821 Last data filed at 11/24/2019 0536 Gross per 24 hour Intake 1720 ml Output 1300 ml Net 420 ml PHYSICAL EXAM: General: NAD Cardiovascular: Regular rate and rhythm with distant heart sounds Respiratory: Clear bilaterally Abdomen: Soft without tenderness Extremities: Without edema DIAGNOSTIC STUDIES: Available data and images were reviewed personally. Significant results and findings are a ddressed here or in the Assessment and Plan. Lab Results Component Value Date HGB 12.3 (L) 11/24/2019 HCT 39.5 (L) 11/24/2019 PLT 170 11/24/2019 WBC 8.9 11/24/2019 Lab Results Component Value Date NA 135 (L) 11/24/2019 K 4.7 11/24/2019 CL 107 11/24/2019 CO2 22 11/24/2019 CREA 0.91 11/24/2019 BUN 10 11/24/2019 Glucose, POC Date/Time Value Ref Range Status 11/24/2019 07:42 AM 153 (H) 70 - 109 mg/dL Final 11/23/2019 08:41 PM 216 (H) 70 - 109 mg/dL Final 11/23/2019 04:55 PM 145 (H) 70 - 109 mg/dL Final Glucose, POC Date/Time Value Ref Range Status 11/24/2019 07:42 AM 153 (H) 70 - 109 mg/dL Final 11/23/2019 08:41 PM 216 (H) 70 - 109 mg/dL Final 11/23/2019 04:55 PM 145 (H) 70 - 109 mg/dL Final No results found. Total time of approximately 25 minutes was spent with the patient and/or patient's family, and/or on the patient's floor/unit, of which more than 50% was spent counseling and/or coord ination the patient's care as outlined above. Naren Velazco MD 11/24/2019 8:[address] [facility] Portions of this chart may have been created with [employer] voice recognition software. Occasi onal wrong-word or sound-alike substitutions may have occurred due to the inherent fabian itations of voice recognition software. Please read the chart carefully and recognize, using context, where these substitutions have occurred arNaren browning MD - 0 11/23/2019 8:00 AM PDT [facility] Hospitalist Progress Note Magdaleno Rick is a 54 y.o. male ASSESSMENT and PLAN: Active Hospital Problems NSTEMI (non-ST elevated myocardial infarction) Patient with a history of chest discomfort initially noted on Thursday. Presentation had e levated troponin without ST segment elevation. Factors include positive family history, smo jena, diabetes, hypertension and hyperlipidemia. He reports both of his parents in the ir 40s from heart disease. This admission he has had a dull persistent chest pain which is really unchanged overnight. He states they gave him morphine to help him sleep last night. Blood pressure is 109/62 heart rate of 83 at the time of my assessment. Plan will be to gi ve oral metoprolol 25 mg 3 times daily first dose now noting he has no history of heart fail ure. With his current blood pressure I am not going to give IV beta-blockade. His atorvast atin dose is 20 mg daily we will increase this to 80. With a 15-year history of diabetes I am going to start IV fluids to mitigate risk relative to renal injury. Type 2 diabetes mellitus Currently insulin treated with patient reporting good sugar control. Check urinalysis to mikki guallpa for proteinuria. SUBJECTIVE: Patient reports dull aching midsternal chest discomfort is unchanged since admission. He s tates he received some morphine last night that did help him sleep. VITALS: Temp: 37.1 C (98.8 F), Pulse: 77, Resp: 21, BP: 109/62, SpO2 94 % on room air at flow r ate L/min Temp Min: 35.6 C (96.1 F) Max: 37.1 C (98.8 F) Weight: 123.4 kg (272 lb 0.8 oz) No intake or output data in the 24 hours ending 11/23/19 0800 PHYSICAL EXAM: General: NAD Cardiovascular: Regular rate and rhythm with distant heart sounds Respiratory: Clear bilaterally Abdomen: Soft without tenderness Extremities: Without edema DIAGNOSTIC STUDIES: Available data and images were reviewed personally. Significant results and findings are a ddressed here or in the Assessment and Plan. Lab Results Component Value Date HGB 12.7 (L) 11/23/2019 HCT 39.2 (L) 11/23/2019 PLT 191 11/23/2019 WBC 8.5 11/23/2019 Lab Results Component Value Date NA 136 11/23/2019 K 4.3 11/23/2019 CL 105 11/23/2019 CO2 26 11/23/2019 CREA 0.92 11/23/2019 BUN 11 11/23/2019 Glucose, POC Date/Time Value Ref Range Status 11/23/2019 06:31 AM 243 (H) 70 - 109 mg/dL Final 11/22/2019 11:17 PM 102 70 - 109 mg/dL Final Glucose, POC Date/Time Value Ref Range Status 11/23/2019 06:31 AM 243 (H) 70 - 109 mg/dL Final 11/22/2019 11:17 PM 102 70 - 109 mg/dL Final No results found. Total time of approximately 30 minutes was spent with the patient and/or patient's family, and/or on the patient's floor/unit, of which more than 50% was spent counseling and/or coord ination the patient's care as outlined above. Naren Velazco MD 11/23/2019 8:[address] [facility] Portions of this chart may have been created with [employer] voice recognition software. Occasi onal wrong-word or sound-alike substitutions may have occurred due to the inherent fabian itations of voice recognition software. Please read the chart carefully and recognize, using context, where these substitutions have occurred documented in this enc ounter H&P Notes Burak Covington MD - 11/22/2019 10:20 PM PDT [facility] HISTORY AND PHYSICAL Pt. Name/Age/: Madgaleno Rick 54 y.o. 1965 Date of admission: 11/22/2019 Admitting Physician: Burak Covington MD Primary Care Provider: No Physician on file CHIEF COMPLAINT: Chest pain HISTORY OF PRESENT ILLNESS: This is a 54 y.o. male who presents with H sig for Diabetes mellitus type II, hypertens ion, hyperlipidemia who presents with chest pain. Patient describes pain as sharp in the ce nter chest. Patient states he first had pain on Thursday. He took 2 baby aspirins and dran k milk as he thought it was due to heartburn. Patient states that exertion will make the p ain worse he denies palpitations. Patient currently smokes cigarettes daily. Notes that hi s exercise tolerance has decreased. In emergency department patient was given enoxaparin and IV fluids. She was given a baby a spirin prior to arrival to the emergency department. PAST MEDICAL and SURGICAL HISTORY: Past Medical History: Diagnosis Date DM hyperosmolarity type II (HCC) Past Surgical History: Procedure Laterality Date ANKLE SURGERY FAMILY HISTORY: family history is not on file. SOCIAL HISTORY: reports that he has been smoking. He started smoking about 6 weeks ago. He has been smokin g about 1.00 pack per day. He has never used smokeless tobacco. He reports that he does not drink alcohol or use drugs.lives in transitional home No etoh + darren REVIEW OF SYSTEMS: All systems were reviewed and were negative unless otherwise stated in HPI HOME MEDICATIONS: No current outpatient medications on file prior to encounter. ALLERGIES: Allergies Allergen Reactions Bee Venom Swelling Penicillins Shortness Of Breath Wasp Venom Protein Swelling Codeine Rash VITAL SIGNS: Temp: 35.6 C (96.1 F), Pulse: 88, Resp: 25, BP: 118/75, SpO2 99 % on room air at flow r ate L/min Temp Min: 35.6 C (96.1 F) Max: 35.6 C (96.1 F) Weight: 123.4 kg (272 lb 0.8 oz) PHYSICAL EXAMINATION: Gen Herminia - alert, cooperative and no distress Head - Normocephalic, without obvious abnormality, atraumatic Eyes - PERRL, conjunctiva/corneas clear, EOM's intact both eyes ENT - mucous membranes moist Neck - supple Lungs - CTA bilat Heart - normal rate, rhythm w/o m/r/g Abdomen - obese Normoactive bowel sounds, non-tender non-distended Extremities - no peripheral edema, no clubbing or cyanosis Skin - dry skin, ntg paste in left chest Neurologic - Alert and oriented x 3. CN II-XII intact. strength- 5/5 throughout Ref lexes 2+ bilateral biceps, triceps, & patellar Sensory- no deficits DIAGNOSTIC STUDIES: Available data and images were reviewed personally. Significant results and findings are a ddressed here or in the Assessment and Plan. No results found for: HGB, HCT, LABPLAT, PLT, WBC No results found for: NA, K, CL, CO2, CREA, BUN, MG, PHOS, CRP, ESR, BNP Glucose, POC Date/Time Value Ref Range Status 11/22/2019 11:17 PM 102 70 - 109 mg/dL Final No results found. OSH labs 13.9 8.6> <189 41.8 132| 99 | 13 M -1.7 <164 4.5| 26 | .93 Trop- .331 EKG: Reviewed independently by me. The tracing shows NSR, q waves in leads III, III, AVF ASSESSMENT and PLAN: Active Hospital Problems Diagnosis NSTEMI (non-ST elevated myocardial infarction) Resolved Hospital Problems No resolved problems to display. NSTEMI pt does have risk factors for ischemic heart disease with diabetes mellitus type 2, hypertension age and smoking. Lovenox SQ X 1, asa. Cardiology consult. DM type II: SSI HL IVF. Check electrolyte daily. Npo DVT Prophylaxis Lovenox X 1 Code Status Full Code CMS Documentation I certify that this admission will likely be greater than 2 midnights and posthospital disc harge will be to home Total of 74 minutes were required to complete the admission process. Electronically signed by: Burak Covington MD 11/23/2019 4:04 AM [facility] documented in this enc ounter Consult Notes Rossy Ortega RN - 11/24/2019 3:39 PM PDTAssociated Order(s): IP CONSULT TO DIABETES SPECIALISTI saw Kieran today at the bedside. He is getting ready for discharge. He has been a person with diabetes since 2002. He has spent the last 25 years in nursing home and was let out this year to a group house in [place]. He report he has never been given any real diabet es education and is interested in pursuing it. He is unable to [place] the state [place] to [facility] at this time so I did give him the number to the [facility] Diabetes [facility] in [facility]. He is also planning on discussing this with his PCP at his follow up. He reports he is moderately active. His diet is ok. He does understand which foods have carbohydrates. He said he does go through 2 or more cases of MT Dew every month. He is willing to cut katyh k and try to replace regular soda with diet and see if this helps his blood sugars. He said he has not been great at taking his pills because of his bi polar disorder. "some days the y just stay in the draw" He reports he does not skip his insulin. He reports no issue with taking insulin but at times he may use insulin. He says the expiration is never mo re that a week over. He stores his unopened insulin in refrigeration and his opened in a dr fu. I reminded him of the importance of not using insulin and that he may see an in crease in blood sugar if using . He reports he has difficulty with coping mechanisms and did re-start smoking cigarettes again after quitting for 25 years. He said the 6 other guys he lives with all smoke and it "was just offered to me" We did discuss healthy coping mechanisms and he said exercise might be one he could try. He is struggling with sleep at [facility]. He states his fasting number have been high. We did discuss trying a small snack of 15 grams of Carbohydrates with some protein before bed and see if that helps. ee, Edd Bates MD - 11/23/2019 8:45 AM PDT PATIENT NAME: Magdaleno Rick : 1965: AGE: 54 y.o. ADMISSION DATE: 11/22/2019 HOSPITAL DAY NUMBER: 1 PRIMARY CARE: No Physician on file REFERRING PROVIDER: CONSULTING PROVIDER: Edd Mccloud MD CARDIOLOGY CONSULTATION DATE OF CONSULTATION: 11/23/19 REASON FOR CONSULT: Heart catheterization for NSTEMI HISTORY OF PRESENT ILLNESS: Magdaleno Rick is a 54 y.o. male who was admitted with discomfort beginning last Satu . He presented to [facility] and had elevation of his troponins without S T elevation. He does have a significant family history of heart disease with a history of s moking diabetes hypertension dyslipidemia. Both parents in their 40s from heart diseas e. Patient had no persistent chest pains which slowly decreased overnight. It was stopped wit h morphine and at present he states he has no pain other than occasional residual fullness. He is not on any drips at this present time. Anticoagulation with Lovenox. He has been st arted on aspirin Plavix..[facility]orefresh PAST MEDICAL HISTORY Past Medical History: Diagnosis Date DM hyperosmolarity type II (HCC) PAST SURGICAL HISTORY Past Surgical History: Procedure Laterality Date [facility] FAMILY HISTORY No family history on file. SOCIAL HISTORY Social History Socioeconomic History Marital status: Spouse name: Not on file Number of children: Not on file Years of education: Not on file Highest education level: Not on file Occupational History Not on file Social Needs Financial resource strain: Not on file Food insecurity: Worry: Not on file Inability: Not on file Transportation needs: Medical: Not on file Non-medical: Not on file Tobacco Use Smoking status: Current Every Day Smoker Packs/day: 1.00 Start date: 10/10/2019 Smokeless tobacco: Never Used Substance and Sexual Activity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 Range | Performed | Pathologist | | | | | At | Signature | + +---------+ + + + | Glucose, | 153 (H) | 70 - 109 mg/dL | [facility] | | | POC | | | [facility] | | | | | | MEDICAL | | | | | | CENTER - | | | | | | LABORATORY | | + +---------+ + + + + + | Specimen | + + | Blood | + + + + + + + | Performing | Address | City/State/Zipcode | Phone Number | | Organization | | | | + + + + + | [facility] | [address] | [place] | [phone] | | [facility] | | [address] | | | - LABORATORY | | | | + + + + + XR Chest AP Portable (11/24/2019 5:48 AM PDT) + + | Specimen | + + | | + + + + + | Impressions | Performed At | + + + | No radiographic evidence for acute disease in the chest. | [facility] | | Dictated and Signed by: Jermaine Molina MD Electronically signed: | | | 11/24/2019 8:28 AM | | + + + + + + | Narrative | Performed At | + + + | EXAM: XR CHEST AP PORTABLE dated 11/24/2019 5:48 AM HISTORY: sob | [facility] | | Comparison: None. TECHNIQUE: A single portable view of the | | | chest. FINDINGS: Elevation of the right hemidiaphragm. The | | | lungs are clear. There are no large pleural effusions. There is | | | no pneumothorax. The cardiac and mediastinal contours are not | | | enlarged. No acute osseous abnormalities. | | + + + + + | Procedure Note | + + | Sylvester, Rad Results In - 11/24/2019 8:31 AM PDT EXAM: XR CHEST AP PORTABLE dated | | 11/24/2019 5:48 AMHISTORY: sobComparison: None.TECHNIQUE: A single portable view of the | | chest.FINDINGS:Elevation of the right hemidiaphragm. The lungs are clear. There are no | | largepleural effusions. There is no pneumothorax. The cardiac and mediastinalcontours | | are not enlarged. No acute osseous abnormalities. IMPRESSION: No radiographic evidence | | for acute disease in the chest.Dictated and Signed by: Jermaine Molina MD | | Electronically signed: 11/24/2019 8:28 AM | | | |FINDINGS: | | | |Elevation of the right hemidiaphragm. The lungs are clear. There are no large | |pleural effusions. There is no pneumothorax. The cardiac and mediastinal | |contours are not enlarged. No acute osseous abnormalities. | | | |IMPRESSION: | | | |No radiographic evidence for acute disease in the chest. | | | |Dictated and Signed by: Jermaine Molina MD | | Electronically signed: 11/24/2019 8:28 AM | + + + +---------+ + + | Performing | Address | City/State/Zipcode | Phone Number | | Organization | | | | + +---------+ + + | [facility] | | | | + +---------+ + + ECG 12 lead (11/24/2019 5:06 AM PDT) + + + + + + | Component | Value | Ref Range | Performed | Pathologist | | | | | At | Signature | + + + + + + | VENTRICULAR | 61 | BPM | [facility] | | | RATE EKG | | | | | + + + + + + | ATRIAL RATE | 61 | BPM | [facility] | | + + + + + + | P-R | 132 | ms | [facility] | | | INTERVAL | | | | | + + + + + + | QRS | 76 | ms | [facility] | | | DURATION | | | | | + + + + + + | Q-T | 450 | ms | [facility] | | | INTERVAL | | | | | + + + + + + | Q-T | 453 | ms | [facility] | | | INTERVAL | | | | | | (CORRECTED) | | | | | + + + + + + | P WAVE AXIS | 64 | degrees | [facility] | | + + + + + + | QRS AXIS | 9 | degrees | [facility] | | + + + + + + | T AXIS | 2 | degrees | [facility] | | + + + + + + | INTERPRETAT | Normal sinus rhythmLow | | [facility] | | | ION TEXT | voltage QRST wave | | | | | | abnormality, consider | | | | | | inferior | | | | | | ischemiaNonspecific ST | | | | | | abnormality Lateral | | | | | | leadsAbnormal ECGWhen | | | | | | compared with ECG of | | | | | | 23-NOV-2019 05:49,No | | | | | | significant change was | | | | | | foundConfirmed by | | | | | | JESSICA JONES MD ([id number]) | | | | | | on 11/24/2019 7:39:49 AM | | | | + + + + + + + + | Specimen | + + | | + + + + + | Narrative | Performed At | + + + | | | + + + + +---------+ + + | Performing | Address | City/State/Zipcode | Phone Number | | Organization | | | | + +---------+ + + | [facility] | | | | + +---------+ + + Lipid Panel (11/24/2019 5:05 AM PDT) + +--------+ + + + | Component | Value | Ref Range | Performed | Pathologist | | | | | At | Signature | + +--------+ + + + | Triglycerid | 104 | <=150 mg/dL | [facility] | | | es | | | [facility] | | | | | | MEDICAL | | | | | | CENTER - | | | | | | LABORATORY | | + +--------+ + + + | Cholesterol | 128 | <=200 mg/dL | [facility] | | | | | | [facility] | | | | | | [facility] | | | | | | CENTER - | | | | | | LABORATORY | | + +--------+ + + + | HDL | 29 (L) | 40 - 60 mg/dL | [facility] | | | | | | [facility] | | | | | | MEDICAL | | | | | | CENTER - | | | | | | LABORATORY | | + +--------+ + + + | Chol/HDL | 4.4 | | [facility] | | | Ratio | | | [facility] | | | | | | MEDICAL | | | | | | CENTER - | | | | | | LABORATORY | | + +--------+ + + + | LDL, | 78 | <=130 mg/dL | [facility] | | | Calculated | | | [facility] | | | | | | MEDICAL | | | | | | CENTER - | | | | | | LABORATORY | | + +--------+ + + + + + | Specimen | + + | Blood | + + + + + + + | Performing | Address | City/State/Zipcode | Phone Number | | Organization | | | | + + + + + | [facility] | [address] | [place] | [phone] | | [facility] | | [address] | | | - LABORATORY | | | | + + + + + CBC no Differential (11/24/2019 5:05 AM PDT) + + + + + + | Component | Value | Ref Range | Performed | Pathologist | | | | | At | Signature | + + + + + + | White Blood | 8.9 | 4.0 - 11.0 K/uL | [facility] | | | Cells | | | [facility] | | | | | | MEDICAL | | | | | | CENTER - | | | | | | LABORATORY | | + + + + + + | Red Blood | 4.64 | 4.30 - 5.70 | [facility] | | | Cells | | M/uL | [facility] | | | | | | MEDICAL | | | | | | CENTER - | | | | | | LABORATORY | | + + + + + + | Hemoglobin | 12.3 (L) | 13.5 - 18.0 | [facility] | | | | | g/dL | [facility] | | | | | | MEDICAL | | | | | | CENTER - | | | | | | LABORATORY | | + + + + + + | Hematocrit | 39.5 (L) | 40.0 - 51.0 % | [facility] | | | | | | [facility] | | | | | | MEDICAL | | | | | | CENTER - | | | | | | LABORATORY | | + + + + + + | MCV | 85.1 | 83.0 - 101.0 fL | [facility] | | | | | | [facility] | | | | | | MEDICAL | | | | | | CENTER - | | | | | | LABORATORY | | + + + + + + | MCH | 26.5 (L) | 28.0 - 35.0 pg | [facility] | | | | | | [facility] | | | | | | MEDICAL | | | | | | CENTER - | | | | | | LABORATORY | | + + + + + + | MCHC | 31.1 (L) | 32.0 - 36.0 | [facility] | | | | | g/dL | [facility] | | | | | | MEDICAL | | | | | | CENTER - | | | | | | LABORATORY | | + + + + + + | RDW-CV | 15.0 (H) | <15.0 % | [facility] | | | | | | [facility] | | | | | | MEDICAL | | | | | | CENTER - | | | | | | LABORATORY | | + + + + + + | RDW-SD | 45.4 | 35.1 - 46.3 fL | [facility] | | | | | | [facility] | | | | | | MEDICAL | | | | | | CENTER - | | | | | | LABORATORY | | + + + + + + | Platelet | 170 | 140 - 440 K/uL | [facility] | | | Count | | | [facility] | | | | | | MEDICAL | | | | | | CENTER - | | | | | | LABORATORY | | + + + + + + | MPV | 11.5 | 6.5 - 12.4 fL | [facility] | | | | | | [facility] | | | | | | MEDICAL | | | | | | CENTER - | | | | | | LABORATORY | | + + + + + + | % nRBC | 0 | 0 - 2 per 100 | [facility] | | | | | WBCs | [facility] | | | | | | MEDICAL | | | | | | CENTER - | | | | | | LABORATORY | | + + + + + + | Absolute | 0.00 | 0.00 - 0.01 | [facility] | | | nRBC | | K/uL | [facility] | | | | | | MEDICAL | | | | | | CENTER - | | | | | | LABORATORY | | + + + + + + + + | Specimen | + + | Blood | + + + + + + + | Performing | Address | City/State/Zipcode | Phone Number | | Organization | | | | + + + + + | [facility] | [address] | [place] | [phone] | | [facility] | | [address] | | | - LABORATORY | | | | + + + + + Basic Metabolic Panel (11/24/2019 5:05 AM PDT) + + + + + + | Component | Value | Ref Range | Performed | Pathologist | | | | | At | Signature | + + + + + + | Na | 135 (L) | 136 - 145 | [facility] | | | | | mmol/L | [facility] | | | | | | MEDICAL | | | | | | CENTER - | | | | | | LABORATORY | | + + + + + + | K | 4.7Comment: Specimen | 3.4 - 5.1 | [facility] | | | | slightly hemolyzed...may | mmol/L | [facility] | | | | affect result. | | MEDICAL | | | | | | CENTER - | | | | | | LABORATORY | | + + + + + + | Cl | 107 | 98 - 107 mmol/L | [facility] | | | | | | [facility] | | | | | | MEDICAL | | | | | | CENTER - | | | | | | LABORATORY | | + + + + + + | CO2 | 22 | 20 - 31 mmol/L | [facility] | | | | | | [facility] | | | | | | MEDICAL | | | | | | CENTER - | | | | | | LABORATORY | | + + + + + + | Anion Gap | 6 | 3 - 16 mmol/L | [facility] | | | | | | [facility] | | | | | | MEDICAL | | | | | | CENTER - | | | | | | LABORATORY | | + + + + + + | Glucose | 137 (H) | 60 - 106 mg/dL | [facility] | | | | | | [facility] | | | | | | MEDICAL | | | | | | CENTER - | | | | | | LABORATORY | | + + + + + + | BUN | 10 | 9 - 23 mg/dL | [facility] | | | | | | [facility] | | | | | | MEDICAL | | | | | | CENTER - | | | | | | LABORATORY | | + + + + + + | Creatinine | 0.91 | 0.70 - 1.30 | [facility] | | | | | mg/dL | [facility] | | | | | | MEDICAL | | | | | | CENTER - | | | | | | LABORATORY | | + + + + + + | eGFR, | >60Comment: GLOMERULAR | >=60 | [facility] | | | non- | FILTRATION | mL/min/1.73m2 | [facility] | | | [place] | RATE,ESTIMATED | | MEDICAL | | | | mL/min/1.93h6Gigc than | | CENTER - | | | | 60 Chronic kidney | | LABORATORY | | | | disease,if found over a | | | | | | 3-month period.Less than | | | | | | 15 Kidney failureFor | | | | | | | | | | | | Americans,multiply the | | | | | | calculated GFR by 1.21. | | | | | | | | | | + + + + + + | Calcium | 8.8 | 8.7 - 10.4 | [facility] | | | | | mg/dL | [facility] | | | | | | MEDICAL | | | | | | CENTER - | | | | | | LABORATORY | | + + + + + + | BUN/Creatin | 11.0 | | [facility] | | | ine Ratio | | | [facility] | | | | | | MEDICAL | | | | | | CENTER - | | | | | | LABORATORY | | + + + + + + + + | Specimen | + + | Blood | + + + + + + + | Performing | Address | City/State/[place] [facility] | Phone Number | | Organization | | | | + + + + + | [facility] | [address] | [place] | [phone] | | [facility] | | [address] | | | - LABORATORY | | | | + + + + + POC Glucose (11/23/2019 8:41 PM PDT) + +---------+ + + + | Component | Value | Ref Range | Performed | Pathologist | | | | | At | Signature | + +---------+ + + + | Glucose, | 216 (H) | 70 - 109 mg/dL | [facility] | | | POC | | | [facility] | | | | | | MEDICAL | | | | | | CENTER - | | | | | | LABORATORY | | + +---------+ + + + + + | Specimen | + + | Blood | + + + + + + + | Performing | Address | City/State/Zipcode | Phone Number | | Organization | | | | + + + + + | [facility] | [address] | [place] | [phone] | | [facility] | | [address] | | | - LABORATORY | | | | + + + + + POC Glucose (11/23/2019 4:55 PM PDT) + +---------+ + + + | Component | Value | Ref Range | Performed | Pathologist | | | | | At | Signature | + +---------+ + + + | Glucose, | 145 (H) | 70 - 109 mg/dL | [facility] | | | POC | | | [facility] | | | | | | MEDICAL | | | | | | CENTER - | | | | | | LABORATORY | | + +---------+ + + + + + | Specimen | + + | Blood | + + + + + + + | Performing | Address | City/State/Zipcode | Phone Number | | Organization | | | | + + + + + | [facility] | [address] | [place] | [phone] | | [facility] | | [address] | | | - LABORATORY | | | | + + + + + CV CARDIAC PROCEDURE (11/23/2019 3:22 PM PDT) + +-------+ + + + | Component | Value | Ref Range | Performed | Pathologist | | | | | At | Signature | + +-------+ + + + | LVEF-LVGRAM | 50 | % | [facility] | | | CARDIAC | | | | | | CATH | | | | | + +-------+ + + + + + | Specimen | + + | | + + + + + | Narrative | Performed At | + + + | Patient | [facility] | | presented with chest pains and elevated troponins. Chest pains | | | decreased and reportedly had resolved but was present on arrival to | | | the Materials Analyst. Right radial approach was used. Coronary angiogram | | | showed total occlusion of the RCA proximally. Left coronary system | | | was normal and large. Collaterals to the distal RCA. Left | | | ventriculogram showed an EF of 50% with mild inferior basilar | | | hypokinesis. The LVEDP was elevated to 30. Because a significant | | | thrombus load, after traversing thrombectomy was performed with | | | aspiration of organized dark clot. Angioplasty with 2.5 balloon | | | followed by a 3.5 x 38 stent postdilated to 4.0. There was | | | embolization of some thrombus into the PL branch without associated | | | symptoms. Patient tolerated procedure without any problems. | | | Conscious sedation was achieved with medications administered by the | | | Materials Analyst nurse under my supervision. Patient was given both only of | | | Integrilin 10 mg cc intravenously and 10 cc down the coronary | | | arteries. Vessels treated aggressively with Cardene and | | | nitroglycerin IC. And was used for hemostasis. For additional | | | detail as to the procedures performed and the equipment that was | | | utilized, please refer to the Procedure Log. | | |hemostasis. | | | | | | | | |For additional detail as to the procedures performed and the equipment | | |that was utilized, please refer to the Procedure Log. | | | | | | | | | | | | | | | | | | | | | | | | | | | | | | | | | | | | | | + + + + +---------+ + + | Performing | Address | City/State/[facility] | Phone Number | | Organization | | | | + +---------+ + + | [facility] | | | | + +---------+ + + POC ACT (11/23/2019 3:03 PM PDT) + +---------+ + + + | Component | Value | Ref Range | Performed | Pathologist | | | | | At | Signature | + +---------+ + + + | Activated | 249 (H) | 125 - 175 | [facility] | | | Clotting | | second(s) | [facility] | | | Time, POC | | | MEDICAL | | | | | | CENTER - | | | | | | LABORATORY | | + +---------+ + + + + + | Specimen | + + | | + + + + + + + | Performing | Address | City/State/Zipcode | Phone Number | | Organization | | | | + + + + + | [facility] | [address] | [place] | [phone] | | [facility] | | [address] | | | - LABORATORY | | | | + + + + + POC Glucose (11/23/2019 11:38 AM PDT) + +---------+ + + + | Component | Value | Ref Range | Performed | Pathologist | | | | | At | Signature | + +---------+ + + + | Glucose, | 218 (H) | 70 - 109 mg/dL | [facility] | | | POC | | | [facility] | | | | | | MEDICAL | | | | | | CENTER - | | | | | | LABORATORY | | + +---------+ + + + + + | Specimen | + + | Blood | + + + + + + + | Performing | Address | City/State/Zipcode | Phone Number | | Organization | | | | + + + + + | [facility] | [address] | [place] | [phone] | | [facility] | | [address] | | | - LABORATORY | | | | + + + + + Troponin I (11/23/2019 10:59 AM PDT) + + + + + + | Component | Value | Ref Range | Performed | Pathologist | | | | | At | Signature | + + + + + + | Troponin I | 18.96 ()Comment: | <0.06 ng/mL | [facility] | | | | Consistent with previous | | [facility] | | | | results. | | MEDICAL | | | | Comment:Reference | | CENTER - | | | | Ranges: 0.00-0.06 = | | LABORATORY | | | | NORMAL >0.06 = | | | | | | SUSPICIOUS FOR | | | | | | MYOCARDIAL DAMAGE NOTE: | | | | | | Values greater than | | | | | | 0.78 ng/mL have been | | | | | | shown to be strongly | | | | | | associated with acute | | | | | | myocardial infarction. | | | | | | The [place] [employer] | | | | | | Cardiology (ACC) | | | | | | recommends a decision | | | | | | limit of 0.06 ng/mL for | | | | | | this assay. Results | | | | | | greater than 0.06 can | | | | | | reflect a pre-infarct | | | | | | acute coronary syndrome, | | | | | | but can also reflect | | | | | | myocardial necrosis or | | | | | | injury that is not due | | | | | | to coronary artery | | | | | | disease. Some of these | | | | | | causes are sepsis, | | | | | | hypocolemia, atrial | | | | | | fibrillation, heart | | | | | | failure, pulmonary | | | | | | embolism, myocarditis, | | | | | | myocardial contusion, | | | | | | and renal failure. The | | | | | | diagnosis of myocardial | | | | | | infarction should be | | | | | | based on a combination | | | | | | of the patient's | | | | | | clinical presentation | | | | | | and the clinical | | | | | | laboratory test results | | | | | | (especially serial | | | | | | troponin levels). | | | | + + + + + + + + | Specimen | + + | Blood - Left upper | | arm structure (body | | structure) | + + + + + + + | Performing | Address | City/State/Zipcode | Phone Number | | Organization | | | | + + + + + | [facility] | [address] | [place] | [phone] | | [facility] | | [address] | | | - LABORATORY | | | | + + + + + Urinalysis with Microscopic with Culture if Indicated (11/23/2019 10:44 AM PDT) + + + + + + | Component | Value | Ref Range | Performed | Pathologist | | | | | At | Signature | + + + + + + | Color, | Yellow | Light Yellow, | [facility] | | | Urine | | Yellow, Straw | [facility] | | | | | | MEDICAL | | | | | | CENTER - | | | | | | LABORATORY | | + + + + + + | Clarity, | Clear | Clear | [facility] | | | Urine | | | [facility] | | | | | | MEDICAL | | | | | | CENTER - | | | | | | LABORATORY | | + + + + + + | pH, Urine | 5.0 | 5.0 - 8.0 | [facility] | | | | | | [facility] | | | | | | MEDICAL | | | | | | CENTER - | | | | | | LABORATORY | | + + + + + + | Specific | 1.023 | 1.001 - 1.030 | [facility] | | | [place], | | | [facility] | | | Urine | | | MEDICAL | | | | | | CENTER - | | | | | | LABORATORY | | + + + + + + | Protein, | Negative | Negative | [facility] | | | Urine | | | [facility] | | | | | | MEDICAL | | | | | | CENTER - | | | | | | LABORATORY | | + + + + + + | Blood, | Moderate (A) | Negative | [facility] | | | Urine | | | [facility] | | | | | | MEDICAL | | | | | | CENTER - | | | | | | LABORATORY | | + + + + + + | Glucose, | 50 mg/dL (A) | Negative | [facility] | | | Urine | | | [facility] | | | | | | MEDICAL | | | | | | CENTER - | | | | | | LABORATORY | | + + + + + + | Ketones, | Negative | Negative | [facility] | | | Urine | | | [facility] | | | | | | MEDICAL | | | | | | CENTER - | | | | | | LABORATORY | | + + + + + + | Bilirubin, | Negative | Negative | [facility] | | | Urine | | | [facility] | | | | | | MEDICAL | | | | | | CENTER - | | | | | | LABORATORY | | + + + + + + | Nitrite, | Negative | Negative | [facility] | | | Urine | | | [facility] | | | | | | MEDICAL | | | | | | CENTER - | | | | | | LABORATORY | | + + + + + + | Leukocyte | Negative | Negative | [facility] | | | Esterase, | | | [facility] | | | Urine | | | MEDICAL | | | | | | CENTER - | | | | | | LABORATORY | | + + + + + + | Urobilinoge | Negative | 0.2 mg/dL, 1.0 | [facility] | | | n, Urine | | mg/dL, Negative | [facility] | | | | | | MEDICAL | | | | | | CENTER - | | | | | | LABORATORY | | + + + + + + | White Blood | 0-2 | 0 - 2 /HPF | [facility] | | | Cells, | | | [facility] | | | Urine | | | MEDICAL | | | | | | CENTER - | | | | | | LABORATORY | | + + + + + + | Red Blood | 0-2 | 0 - 2 /HPF | [facility] | | | Cells, | | | [facility] | | | Urine | | | MEDICAL | | | | | | CENTER - | | | | | | LABORATORY | | + + + + + + | Squamous | 0-2 | 0 - 2 /LPF | [facility] | | | Epithelial | | | [facility] | | | Cells, | | | MEDICAL | | | Urine | | | CENTER - | | | | | | LABORATORY | | + + + + + + | Bacteria, | Negative | Negative /HPF | [facility] | | | Urine | | | [facility] | | | | | | MEDICAL | | | | | | CENTER - | | | | | | LABORATORY | | + + + + + + | Mucus, | Present (A) | Negative /LPF | [facility] | | | Urine | | | [facility] | | | | | | MEDICAL | | | | | | CENTER - | | | | | | LABORATORY | | + + + + + + | Urine | Urine Culture Not | | [facility] | | | Comment | Indicated | | [facility] | | | | | | MEDICAL | | | | | | CENTER - | | | | | | LABORATORY | | + + + + + + + + | Specimen | + + | Urine - Urine | | specimen obtained by | | clean catch | | procedure (specimen) | + + + + + + + | Performing | Address | City/State/Zipcode | Phone Number | | Organization | | | | + + + + + | [facility] | [address] | [place] | [phone] | | [facility] | | [address] | | | - LABORATORY | | | | + + + + + POC Glucose (11/23/2019 6:31 AM PDT) + +---------+ + + + | Component | Value | Ref Range | Performed | Pathologist | | | | | At | Signature | + +---------+ + + + | Glucose, | 243 (H) | 70 - 109 mg/dL | [facility] | | | POC | | | [facility] | | | | | | MEDICAL | | | | | | CENTER - | | | | | | LABORATORY | | + +---------+ + + + + + | Specimen | + + | Blood | + + + + + + + | Performing | Address | City/State/Zipcode | Phone Number | | Organization | | | | + + + + + | [facility] | [address] | [place] | [phone] | | [facility] | | [address] | | | - LABORATORY | | | | + + + + + ECG 12 lead (11/23/2019 5:49 AM PDT) + + + + + + | Component | Value | Ref Range | Performed | Pathologist | | | | | At | Signature | + + + + + + | VENTRICULAR | 79 | BPM | [facility] | | | RATE EKG | | | | | + + + + + + | ATRIAL RATE | 79 | BPM | [facility] | | + + + + + + | P-R | 130 | ms | [facility] | | | INTERVAL | | | | | + + + + + + | QRS | 82 | ms | [facility] | | | DURATION | | | | | + + + + + + | Q-T | 368 | ms | [facility] | | | INTERVAL | | | | | + + + + + + | Q-T | 421 | ms | [facility] | | | INTERVAL | | | | | | (CORRECTED) | | | | | + + + + + + | P WAVE AXIS | 61 | degrees | [facility] | | + + + + + + | QRS AXIS | 52 | degrees | [facility] | | + + + + + + | T AXIS | -28 | degrees | [facility] | | + + + + + + | INTERPRETAT | Normal sinus rhythmLow | | [facility] | | | ION TEXT | voltage QRST wave | | | | | | abnormality, consider | | | | | | inferior | | | | | | ischemiaNonspecific ST | | | | | | and T wave abnormality | | | | | | Lateral leadsAbnormal | | | | | | ECGNo previous ECGs | | | | | | availableConfirmed by | | | | | | JESSICA JONES MD ([id number]) | | | | | | on 11/23/2019 6:20:09 AM | | | | + + + + + + + + | Specimen | + + | | + + + + + | Narrative | Performed At | + + + | | | + + + + +---------+ + + | Performing | Address | City/State/Zipcode | Phone Number | | Organization | | | | + +---------+ + + | [facility] | | | | + +---------+ + + Troponin I (11/23/2019 4:17 AM PDT) + + + + + + | Component | Value | Ref Range | Performed | Pathologist | | | | | At | Signature | + + + + + + | Troponin I | 22.60 ()Comment: | <0.06 ng/mL | [facility] | | | | Comment:Reference | | [facility] | | | | Ranges: 0.00-0.06 = | | MEDICAL | | | | NORMAL >0.06 = | | CENTER - | | | | SUSPICIOUS FOR | | LABORATORY | | | | MYOCARDIAL DAMAGE NOTE: | | | | | | Values greater than | | | | | | 0.78 ng/mL have been | | | | | | shown to be strongly | | | | | | associated with acute | | | | | | myocardial infarction. | | | | | | [employer] | | | | | | [employer] ([employer]) | | | | | | recommends a decision | | | | | | limit of 0.06 ng/mL for | | | | | | this assay. Results | | | | | | greater than 0.06 can | | | | | | reflect a pre-infarct | | | | | | acute coronary syndrome, | | | | | | but can also reflect | | | | | | myocardial necrosis or | | | | | | injury that is not due | | | | | | to coronary artery | | | | | | disease. Some of these | | | | | | causes are sepsis, | | | | | | hypocolemia, atrial | | | | | | fibrillation, heart | | | | | | failure, pulmonary | | | | | | embolism, myocarditis, | | | | | | myocardial contusion, | | | | | | and renal failure. The | | | | | | diagnosis of myocardial | | | | | | infarction should be | | | | | | based on a combination | | | | | | of the patient's | | | | | | clinical presentation | | | | | | and the clinical | | | | | | laboratory test results | | | | | | (especially serial | | | | | | troponin levels). | | | | | | Critical Result called | | | | | | to and read back by Melody | | | | | | Zeeshan Beltre RN on 11/23/2019 | | | | | | at 4:56 AM by Nawaf Resendiz | | | | | | Blake. | | | | + + + + + + + + | Specimen | + + | Blood | + + + + + + + | Performing | Address | City/State/Zipcode | Phone Number | | Organization | | | | + + + + + | [facility] | [address] | [place] | [phone] | | [facility] | | [address] | | | - LABORATORY | | | | + + + + + CBC no Differential (11/23/2019 4:17 AM PDT) + + + + + + | Component | Value | Ref Range | Performed | Pathologist | | | | | At | Signature | + + + + + + | White Blood | 8.5 | 4.0 - 11.0 K/uL | [facility] | | | Cells | | | [facility] | | | | | | [facility] | | | | | | C[facility] - | | | | | | LABORATORY | | + + + + + + | Red Blood | 4.77 | 4.30 - 5.70 | [facility] | | | Cells | | M/uL | [facility] | | | | | | [facility] | | | | | | C[facility] - | | | | | | LABORATORY | | + + + + + + | Hemoglobin | 12.7 (L) | 13.5 - 18.0 | [facility] | | | | | g/dL | [facility] | | | | | | [facility]ICAL | | | | | | CENTER - | | | | | | LABORATORY | | + + + + + + | Hematocrit | 39.2 (L) | 40.0 - 51.0 % | [facility] | | | | | | [facility] | | | | | | [facility] | | | | | | C[facility] - | | | | | | LABORATORY | | + + + + + + | MCV | 82.2 (L) | 83.0 - 101.0 fL | [facility] | | | | | | [facility] | | | | | | [facility] | | | | | | [facility] - | | | | | | LABORATORY | | + + + + + + | MCH | 26.6 (L) | 28.0 - 35.0 pg | [facility] | | | | | | [facility] | | | | | | [facility] | | | | | | C[facility] - | | | | | | LABORATORY | | + + + + + + | MCHC | 32.4 | 32.0 - 36.0 | [facility] | | | | | g/dL | [facility] | | | | | | [facility] | | | | | | CENTER - | | | | | | LABORATORY | | + + + + + + | RDW-CV | 14.5 | <15.0 % | [facility] | | | | | | [facility] | | | | | | [facility] | | | | | | C[facility] - | | | | | | LABORATORY | | + + + + + + | RDW-SD | 42.4 | 35.1 - 46.3 fL | [facility] | | | | | | [facility] | | | | | | [facility] | | | | | | C[facility] - | | | | | | LABORATORY | | + + + + + + | Platelet | 191 | 140 - 440 K/uL | [facility] | | | Count | | | [facility] | | | [facility] | | [facility] | | | | | | CENTER - | | | | | | LABORATORY | | + + + + + + | MPV | 11.3 | 6.5 - 12.4 fL | [facility] | | | | | | [facility] | | | | | | [facility] | | | | | | C[facility] - | | | | | | LABORATORY | | + + + + + + | % nRBC | 0 | 0 - 2 per 100 | [facility] | | | | | WBCs | [facility] | | | | | | [facility] | | | | | | CENTER - | | | | | | LABORATORY | | + + + + + + | Absolute | 0.00 | 0.00 - 0.01 | [facility] | | | nRBC | | K/uL | [facility] | | | | | | [facility]ICAL | | | | | | CENTER - | | | | | | LABORATORY | | + + + + + + + + | Specimen | + + | Blood | + + + + + + + | Performing | Address | City/State/Zipcode | Phone Number | | Organization | | | | + + + + + | [facility] | [address] | [place] | [phone] | | [facility] | | [address] | | | - LABORATORY | | | | + + + + + Basic Metabolic Panel (11/23/2019 4:17 AM PDT) + + + + + + | Component | Value | Ref Range | Performed | Pathologist | | | | | At | Signature | + + + + + + | Na | 136 | 136 - 145 | [facility] | | | | | mmol/L | [facility] | | | | | | [facility]ICAL | | | | | | CENTER - | | | | | | LABORATORY | | + + + + + + | K | 4.3 | 3.4 - 5.1 | [facility] | | | | | mmol/L | [facility] | | | | | | [facility] | | | | | | CENTER - | | | | | | LABORATORY | | + + + + + + | Cl | 105 | 98 - 107 mmol/L | [facility] | | | | | | [facility] | | | | | | [facility] | | | | | | CENTER - | | | | | | LABORATORY | | + + + + + + | CO2 | 26 | 20 - 31 mmol/L | [facility] | | | | | | [facility] | | | | | | [facility] | | | | | | CENTER - | | | | | | LABORATORY | | + + + + + + | Anion Gap | 5 | 3 - 16 mmol/L | [facility] | | | | | | [facility] | | | [facility] | | [facility] | | | | | | C[facility] - | | | | | | LABORATORY | | + + + + + + | Glucose | 263 (H) | 60 - 106 mg/dL | [facility] | | | | | | [facility] | [facility] | [facility] | | | | | | C[facility] - | | | | | | LABORATORY | | + + + + + + | BUN | 11 | 9 - 23 mg/dL | [facility] | | | | | | [facility] | | | | | | [facility] | | | | | | CENTER - | | | | | | LABORATORY | | + + + + + + | Creatinine | 0.92 | 0.70 - 1.30 | [facility] | | | | | mg/dL | [facility] | | | | | | MEDICAL | | | | | | CENTER - | | | | | | LABORATORY | | + + + + + + | eGFR, | >60Comment: GLOMERULAR | >=60 | [facility] | | | non- | FILTRATION | mL/min/1.73m2 | [facility] | | | [place] | RATE,ESTIMATED | | MEDICAL | | | | mL/min/1.76n7Tpql than | | CENTER - | | | | 60 Chronic kidney | | LABORATORY | | | | disease,if found over a | | | | | | 3-month period.Less than | | | | | | 15 Kidney failureFor | | | | | | | | | | | | Americans,multiply the | | | | | | calculated GFR by 1.21. | | | | | | | | | | + + + + + + | Calcium | 8.9 | 8.7 - 10.4 | [facility] | | | | | mg/dL | [facility] | | | | | | MEDICAL | | | | | | CENTER - | | | | | | LABORATORY | | + + + + + + | BUN/Creatin | 12.0 | | [facility] | | | ine Ratio | | | [facility] | | | | | | MEDICAL | | | | | | CENTER - | | | | | | LABORATORY | | + + + + + + + + | Specimen | + + | Blood | + + + + + + + | Performing | Address | City/State/Zipcode | Phone Number | | Organization | | | | + + + + + | [facility] | [address] | [place], [place] | [phone] | | [facility] | | [address] | | | - LABORATORY | | | | + + + + + Coronavirus (COVID-19) NAAT (11/22/2019 11:22 PM PDT) + + + + + + | Component | Value | Ref Range | Performed | Pathologist | | | | | At | Signature | + + + + + + | SARS-CoV-2, | NegativeComment: Result | Negative | [facility] | | | NAAT | called to and read back | | [facility] | | | (COVID-19) | by Melody Beltre RN on | | MEDICAL | | | | 11/22/2019 at 11:44 PM by | | CENTER - | | | | Nawaf Lozano. | | LABORATORY | | | | SARS-CoV-2, RNA | | | | | | (COVID-19) EUA This | | | | | | assay has been cleared | | | | | | for use under an FDA | | | | | | Emergency Use | | | | | | Authorization. This test | | | | | | is used for clinical | | | | | | purposes. It should not | | | | | | be regarded as | | | | | | investigational or for | | | | | | research. This | | | | | | laboratory is certified | | | | | | under the Clinical | | | | | | Laboratory Improvement | | | | | | Amendments (CLIA) as | | | | | | qualified to perform | | | | | | high and moderate | | | | | | complexity testing. | | | | | | Other authorized testing | | | | | | locations include | | | | | | patient care settings | | | | | | using the ID Now | | | | | | Instrument. This test | | | | | | has been validated in | | | | | | accordance with the | | | | | | FDA's Guidance Document | | | | | | "Policy for Diagnostics | | | | | | Testing in Laboratories | | | | | | Certified to Perform | | | | | | High and Moderate | | | | | | Complexity Testing and | | | | | | patient care testing | | | | | | areas where ID NOW is | | | | | | being used, under CLIA | | | | | | prior to Emergency Use | | | | | | Authorization for | | | | | | Coronavirus Disease-2019 | | | | | | during the Public | | | | | | Health Emergency" issued | | | | | | on September 19, 2019. FDA | | | | | | independent review of | | | | | | this validation is | | | | | | pending. This test is | | | | | | only authorized for the | | | | | | duration of time the | | | | | | declaration that | | | | | | circumstances exist | | | | | | justifying the | | | | | | authorization of the | | | | | | emergency use of in | | | | | | vitro diagnostic tests | | | | | | for detection of | | | | | | SARS-CoV-2 virus and/or | | | | | | diagnosis of COVID-19 | | | | | | infection under section | | | | | | 564(b)(1) of the Act, 21 | | | | | | U.S.C. 360bbb-3(b)(1), | | | | | | unless the authorization | | | | | | is terminated or | | | | | | revoked sooner. | | | | + + + + + + + + | Specimen | + + | Tissue - Entire | | nasopharynx (body | | structure) | + + + + + + + | Performing | Address | City/State/Zipcode | Phone Number | | Organization | | | | + + + + + | [facility] | [address] | [place] | [phone] | | [facility] | | [address] | | | - LABORATORY | | | | + + + + + POC Glucose (11/22/2019 11:17 PM PDT) + +-------+ + + + | Component | Value | Ref Range | Performed | Pathologist | | | | | At | Signature | + +-------+ + + + | Glucose, | 102 | 70 - 109 mg/dL | [facility] | | | POC | | | [facility] | [facility] | | | [facility] | | | | | | CENTER - | | | | | | LABORATORY | | + +-------+ + + + + + | Specimen | + + | Blood | + + + + + + + | Performing | Address | City/State/Zipcode | Phone Number | | Organization | | | | + + + + + | [facility] | [address] | [place] | [phone] | | [facility] | | [address] | | | - LABORATORY | | | | + + + + + Culture, MRSA (11/22/2019 10:17 PM PDT) + + + + + + | Component | Value | Ref Range | Performed | Pathologist | | | | | At | Signature | + + + + + + | Culture | Negative for MRSA by | | [facility] | | | | chromogenic agar method. | | [facility] | | | | | | MEDICAL | | | | | | CENTER - | | | | | | LABORATORY | | + + + + + + | Culture | 3+ Coagulase positive | | [facility] | | | | Staphylococcus | | [facility] | | | | | | MEDICAL | | | | | | CENTER - | | | | | | LABORATORY | | + + + + + + + + | Specimen | + + | Tissue - Both | | anterior nares (body | | structure) | + + + + + + + | Performing | Address | City/State/Zipcode | Phone Number | | Organization | | | | + + + + + | [facility] | [address] | [place], [place] | [phone] | | [facility] | | [address] | | | - LABORATORY | | | | + + + + + documented in this encounter Visit Diagnoses + + | Diagnosis | + + | NSTEMI (non-ST elevated myocardial infarction) (HCC) Acute myocardial infarction, | | subendocardial infarction, episode of care unspecified | + + documented in this encounter Admitting Diagnoses + + | Diagnosis | + + | NSTEMI (non-ST elevated myocardial infarction) (HCC) Acute myocardial infarction, | | subendocardial infarction, episode of care unspecified | + + documented in this encounter Administered Medications + +--------+ +--------+------+------+ | Medication Order | MAR | Action | Dose | Rate | Site | | | Action | Date | | | | + +--------+ +--------+------+------+ | acetaminophen (TYLENOL) tablet | Given | 11/23/19 | 650 mg | | | | 650 mg 650 mg, Oral, EVERY 4 | | 20 11:49 | | | | | HOURS PRN, Pain, or fever >= 38.6 | | PM PDT | | | | | C (101.5 F), Starting Tue | | | | | | | 11/22/19 at 2228 | | | | | | + +--------+ +--------+------+------+ +-------+ +--------+---+---+ | Given | 11/23/19 | 650 mg | | | | | 20 7:23 | | | | | | AM PDT | | | | +-------+ +--------+---+---+ +---+---+ | | | +---+---+ + +-------+ +--------+---+---+ | adult valved holding chamber | Given | 11/24/19 | 1 each | | | | (AEROCHAMBER) 1 each 1 each, | | 20 11:13 | | | | | Inhalation, USE WITH MDI, | | AM PDT | | | | | Starting [facility] 11/24/19 at 0852 | | | | | | + +-------+ +--------+---+---+ +---+---+ | | | +---+---+ + +-------+ +--------+---+---+ | albuterol 2.5 mg/3 mL nebulizer | Given | 11/24/19 | 2.5 mg | | | | solution 2.5 mg 2.5 mg, | | 20 5:43 | | | | | Nebulization, RT EVERY 4 HOURS | | AM PDT | | | | | PRN, Shortness of Breath, | | | | | | | Starting [facility] 11/24/19 at 0532, RT | | | | | | | will administer., | | | | | | + +-------+ +--------+---+---+ +---+---+ | | | +---+---+ + +-------+ +---------+---+---+ | albuterol 90 mcg/puff inhaler | Given | 11/24/19 | 2 puffs | | | | 1-2 puff 1-2 puff, Inhalation, | | 20 2:17 | | | | | EVERY 4 HOURS PRN, Wheezing, | | PM PDT | | | | | Starting [facility] 11/24/19 at 0813, | | | | | | | Shake well. Use with spacer., | | | | | | + +-------+ +---------+---+---+ +-------+ +---------+---+---+ | Given | 11/24/19 | 2 puffs | | | | | 20 11:13 | | | | | | AM PDT | | | | +-------+ +---------+---+---+ +---+---+ | | | +---+---+ + +-------+ +-------+---+---+ | aspirin chewable tablet 81 mg | Given | 11/24/19 | 81 mg | | | | 81 mg, Oral, DAILY, First dose on | | 20 8:01 | | | | | 11/23/19 at 0900 | | AM PDT | | | | + +-------+ +-------+---+---+ +-------+ +-------+---+---+ | Given | 11/23/19 | 81 mg | | | | | 20 8:17 | | | | | | AM PDT | | | | +-------+ +-------+---+---+ +---+---+ | | | +---+---+ + +-------+ +-------+---+---+ | atorvaSTATin (LIPITOR) tablet | Given | 11/23/19 | 80 mg | | | | 80 mg 80 mg, Oral, NIGHTLY, | | 20 8:44 | | | | | First dose (after last | | PM PDT | | | | | modification) on Thu11/23/19 at | | | | | | | 2100 | | | | | | + +-------+ +-------+---+---+ +---+---+ | | | +---+---+ + +-------+ +------+---+---+ | clonazePAM (klonoPIN) tablet 1 | Given | 11/23/19 | 1 mg | | | | mg 1 mg, Oral, NIGHTLY PRN, | | 20 11:49 | | | | | Insomnia, Starting Thu11/22/19 at | | PM PDT | | | | | 2235, Reproductive Risk: Use | | | | | | | appropriate handling | | | | | | | precautions., | | | | | | + +-------+ +------+---+---+ +-------+ +------+---+---+ | Given | 11/22/19 | 1 mg | | | | | 20 11:26 | | | | | | PM PDT | | | | +-------+ +------+---+---+ +---+---+ | | | +---+---+ + +-------+ +-------+---+---+ | clopidogrel (PLAVIX) tablet 75 | Given | 11/24/19 | 75 mg | | | | mg 75 mg, Oral, DAILY, First | | 20 8:01 | | | | | dose on Thu11/24/19 at 0900, Do | | AM PDT | | | | | not give if already taken today., | | | | | | | Post-op/Phase II | | | | | | + +-------+ +-------+---+---+ + +---+ | | | + +---+ | dextrose 10% (D10W) infusion | | | at 50 mL/hr, Intravenous, | | | CONTINUOUS PRN, hypoglycemia, | | | Starting 11/22/19 at 2226, | | | Start infusion if unable to | | | maintain blood glucose greater | | | than 70 mg/dL after two rounds of | | | hypoglycemia treatment. Recheck | | | blood glucose 30 minutes after | | | starting D10W then at least | | | hourly and PRN until it is | | | discontinued. Call provider to | | | discuss parameters for D10W | | | discontinuation., | | + +---+ | | | + +---+ | dextrose 50% injection 12.5-25 | | | g 12.5-25 g, Intravenous, PRN, | | | Low Blood Sugar, Starting Tue | | | 11/22/19 at 2226, For blood | | | glucose 50-69 mg/dl - give 12.5 g | | | For blood glucose less than 50 | | | mg/dl - give 25 g, | | + +---+ | | | + +---+ + +-------+ +-------+---+---+ | eptifibatide (INTEGRILIN) 2 | Given | 11/23/19 | 20 mg | | | | mg/mL injection ONCE PRN, | | 20 2:53 | | | | | Starting 11/23/19 at 1444, | | PM PDT | | | | | Intra-op | | | | | | + +-------+ +-------+---+---+ +-------+ +-------+---+---+ | Given | 11/23/19 | 10 mg | | | | | 20 2:44 | | | | | | PM PDT | | | | +-------+ +-------+---+---+ +---+---+ | | | +---+---+ + +-------+ +--------+---+---+ | fentaNYL (PF) injection ONCE | Given | 11/23/19 | 25 mcg | | | | PRN, Starting 11/23/19 at | | 20 2:53 | | | | | 1431, Intra-op | | PM PDT | | | | + +-------+ +--------+---+---+ +-------+ +--------+---+---+ | Given | // | 25 mcg | | | | | 20 2:31 | | | | | | PM PDT | | | | +-------+ +--------+---+---+ +---+---+ | | | +---+---+ + +-------+ +--------+---+---+ | heparin 1,000 units/mL | Given | 11/23/19 | 3,000 | | | | injection ONCE PRN, Starting Wed | | 20 2:56 | Units | | | | 11/23/19 at 1456, Intra-op | | PM PDT | | | | + +-------+ +--------+---+---+ +-------+ +--------+---+---+ | Given | 11/23/19 | 5,000 | | | | | 20 2:40 | Units | | | | | PM PDT | | | | +-------+ +--------+---+---+ +---+---+ | | | +---+---+ + +-------+ +---------+---+ + | insulin lispro (humaLOG | Given | 11/24/19 | 6 Units | | Arm-Left | | KWIKPEN) injection (pen) 0-12 | | 20 11:45 | | | Upper | | Units 0-12 Units, Subcutaneous, | | AM PDT | | | | | 4 TIMES DAILY WITH MEALS & | | | | | | | NIGHTLY, First dose on Thu | | | | | | | 11/22/19 at 2245, CORRECTION | | | | | | | SCALE: Blood Glucose (BG) < | | | | | | | 150: None BG | | | | | | | 150-200: DAY: 2 units. NIGHT: | | | | | | | 0 units BG 201-250: DAY: 4 | | | | | | | units. NIGHT: 2 units BG | | | | | | | 251-300: DAY: 6 units. NIGHT: | | | | | | | 4 units BG 301-350: DAY: 8 | | | | | | | units. NIGHT: 6 units BG | | | | | | | 351-400: DAY: 10 units. NIGHT: 8 | | | | | | | units BG > 400 : DAY: 12 | | | | | | | units. NIGHT: 10 units | | | | | | | AND CALL PROVIDER | | | | | | | , Use DAY DOSE for doses | | | | | | | scheduled: AC, NPO, Daytime | | | | | | | 4689-6229 Use NIGHT DOSE for | | | | | | | doses scheduled: HS, | | | | | | | Nighttime 2118-2713 If the BG is | | | | | | | not checked before the patient | | | | | | | starts eating, do not give | | | | | | | correction insulin., | | | | | | + +-------+ +---------+---+ + +-------+ +---------+---+ + | Given | 11/24/19 | 2 Units | | Arm-Righ | | | 20 7:58 | | | t Upper | | | AM PDT | | | | +-------+ +---------+---+ + | Given | 11/23/19 | 2 Units | | Arm-Left | | | 20 8:42 | | | Upper | | | PM PDT | | | | +-------+ +---------+---+ + +---+---+ | | | +---+---+ + +-------+ +---------+---+---+ | iohexol (OMNIPAQUE 350) 350 | Given | 11/23/19 | 105 mLs | | | | mg/mL injection ONCE PRN, | | 20 3:09 | | | | | Starting 11/23/19 at 1509, | | PM PDT | | | | | Intra-op | | | | | | + +-------+ +---------+---+---+ +---+---+ | | | +---+---+ + +-------+ +-------+---+---+ | lidocaine buffered 0.9% | Given | 11/23/19 | 2 mLs | | | | injection ONCE PRN, Starting Wed | | 20 2:27 | | | | | 11/23/19 at 1427, Intra-op | | PM PDT | | | | + +-------+ +-------+---+---+ +---+---+ | | | +---+---+ + +-------+ +-------+---+---+ | metoprolol tartrate (LOPRESSOR) | Given | 11/24/19 | 25 mg | | | | tablet 25 mg 25 mg, Oral, 2 | | 20 8:01 | | | | | TIMES DAILY, First dose (after | | AM PDT | | | | | last modification) on Nell 11/24/19 | | | | | | | at 0900 | | | | | | + +-------+ +-------+---+---+ +---+---+ | | | +---+---+ + +-------+ +--------+---+---+ | midazolam (VERSED) 1 mg/mL | Given | 11/23/19 | 0.5 mg | | | | injection ONCE PRN, Starting Wed | | 20 2:53 | | | | | 11/23/19 at 1426, Intra-op | | PM PDT | | | | + +-------+ +--------+---+---+ +-------+ +------+---+---+ | Given | 11/23/19 | 2 mg | | | | | 20 2:26 | | | | | | PM PDT | | | | +-------+ +------+---+---+ +---+---+ | | | +---+---+ + +-------+ +------+---+---+ | morphine injection 2-4 mg 2-4 | Given | 11/23/19 | 2 mg | | | | mg, Intravenous, EVERY 3 HOURS | | 20 6:31 | | | | | PRN, Pain, Starting 11/22/19 | | AM PDT | | | | | at 2251 | | | | | | + +-------+ +------+---+---+ +-------+ +------+---+---+ | Given | 11/22/19 | 2 mg | | | | | 20 11:53 | | | | | | PM PDT | | | | +-------+ +------+---+---+ +---+---+ | | | +---+---+ + +-------+ +-------+---+---+ | niCARdipine in saline (CARDENE) | Given | 11/23/19 | 3 mLs | | | | 100 mcg/mL syringe ONCE PRN, | | 20 2:57 | | | | | Starting 11/23/19 at 1454, | | PM PDT | | | | | Intra-op | | | | | | + +-------+ +-------+---+---+ +-------+ +-------+---+---+ | Given | 11/23/19 | 3 mLs | | | | | 20 2:54 | | | | | | PM PDT | | | | +-------+ +-------+---+---+ +---+---+ | | | +---+---+ + +-------+ +---------+---+---+ | nitroglycerin 200 mcg/mL | Given | 20 | 300 mcg | | | | syringe ONCE PRN, Starting Wed | | 20 3:04 | | | | | 11/23/19 at 1454, Intra-op | | PM PDT | | | | + +-------+ +---------+---+---+ +-------+ +---------+---+---+ | Given | 11/23/19 | 300 mcg | | | | | 20 2:54 | | | | | | PM PDT | | | | +-------+ +---------+---+---+ +---+---+ | | | +---+---+ documented in this encounter
--- OUTSIDE RECORDS SUMMARY | ~2020-04-25 | XMS | Encounter Summary ---
Demographics + + + | Address | [address] | | | [place] [address] | + + + | Home Phone | | + + + | Preferred Language | Unknown | + + + | Marital Status | | + + + | Anabaptist Affiliation | Unknown | + + + | Race | White | + + + | Ethnic Group | Not or | + + + Author + + + | Author | [facility] | | | and [place] | + + + | Organization | [facility] | | | and [...] Team Providers + +------+ + | Care Plant Protection Guard Name | Role | Phone | + +------+ + | Sacha Cline MD | PCP | | + +------+ + Reason for Visit + +--------+ + | Reason | Onset | Comments | | | Date | | + +--------+ + | Follow-up | 12/04/ | | | | 2020 | | + +--------+ + Encounter Details +--------+ + + + + | Date | Type | Department | Care Team | Description | +--------+ + + + + | 12/04/ | Telephone | [facility] | Rosanne Field RN | Follow-up | | 2019 | | [facility] | | | | | | [address] | | | | | | [place] | | | | | | [phone] | | | | | | [phone] | | | +--------+ + + + [...] Telephone Encounter - Rosanne Field RN - 12/05/2019 1:54 PM TYREERN made follow up phone c all to patient post PCI. Call made to ensure cardiac rehab referral has been made, 30 day fo [facility] up appointment has been scheduled, as well as ensuring that the patient was able to porfirio l prescription after discharge. Patient did not answer, RN left a message, will attempt seymour Field RN documented in this enc ounter Plan of Treatment Not on filedocumented as of this encounter Visit Diagnoses Not on filedocumented in this encounter"
--- OUTSIDE RECORDS SUMMARY | ~2020-04-25 | XMS | Clinical Summary ---
Demographics + + + | Address | [address] | | | [place] [address] | + + + | Home Phone | | + + + | Preferred Language | Unknown | + + + | Marital Status | | + + + | Rastafari Affiliation | Unknown | + + + | Race | White | + + + | Ethnic Group | Not or | + + + Author + + + | Author | [facility] | | | and [place] | + + + | Organization | [facility] | | | and [...] Team Providers + +------+ + | Care Geomatics Professor Name | Role | Phone | + +------+ + | Sacha Cline MD | PCP | | + +------+ + Allergies + + + + + + | Active Allergy | Reactions | Severity | Noted | Comments | | | | | Date | | + + + + + + | Bee Venom | Swelling | High | 11/22/19 | | | | | | 20 | | + + + + + + | Codeine | Rash | Low | 11/22/19 | | | | | | 20 | | + + + + + + | Penicillins | Shortness Of Breath | High | 11/22/19 | | | | | | 20 | | + + + + + + | Wasp Venom Protein | Swelling | High | 11/22/19 | | | | | | 20 | | + + + + + + Medications + + + +---------+------+------+-------+ | Medication | Sig | Dispensed | Refills | Star | End | Statu | | | | | | t | Date | s | | | | | | Date | | | + + + +---------+------+------+-------+ | cariprazine | Take 6 mg by mouth | | 0 | | | Activ | | (VRAYLAR) 6 mg | Daily Patient is | | | | | e | | capsule | taking 9mg daily. | | | | | | + + + +---------+------+------+-------+ | DULoxetine | Take 60 mg by mouth | | 0 | | | Activ | | (CYMBALTA) [address] | Daily. | | | | | e | | capsule | | | | | | | + + + +---------+------+------+-------+ | insulin glargine | Inject 30 Units | | 0 | | | Activ | | (BASAGLAR KWIKPEN) | under the skin | | | | | e | | 100 units/mL | Daily. | | | | | | | injection (pen) | | | | | | | + + + +---------+------+------+-------+ | insulin regular | Inject 10 Units | | 0 | | | Activ | | (HUMULIN R, NOVOLIN | under the skin 3 | | | | | e | | R) 100 units/mL | times daily (before | | | | | | | injection (vial) | meals). | | | | | | + + + +---------+------+------+-------+ | prazosin | Take 2 mg by mouth | | 0 | | | Activ | | (MINIPRESS) 2 MG | nightly. | | | | | e | | capsule | | | | | | | + + + +---------+------+------+-------+ | SUMAtriptan | Take 1 tablet by | | 0 | | | Activ | | (IMITREX) 100 mg | mouth 2 times daily, | | | | | e | | tablet | at least 2 hours | | | | | | | | between doses | | | | | | + + + +---------+------+------+-------+ | hydrOXYzine | Take 100 mg by mouth | | 0 | | | Activ | | (ATARAX) 50 MG | nightly. | | | | | e | | tablet | | | | | | | + + + +---------+------+------+-------+ | traZODone | Take 200 mg by mouth | | 0 | | | Activ | | (DESYREL) 100 mg | nightly. | | | | | e | | tablet | | | | | | | + + + +---------+------+------+-------+ | metFORMIN | Start 1/2 pill twice | | 0 | 05/2 | | Activ | | (GLUCOPHAGE) 1000 MG | daily with meals on | | | 1/20 | | e | | tablet | the a.m. of 11/26, | | | 20 | | | | | increasing as | | | | | | | | tolerated to 1 pill | | | | | | | | twice daily. | | | | | | + + + +---------+------+------+-------+ | aspirin 81 mg | Chew and swallow 1 | 30 | 0 | 05/2 | | Activ | | chewable tablet | tablet Daily. | tablet | | 2/20 | | e | | | | | | 20 | | | + + + +---------+------+------+-------+ | atorvaSTATin | Take 1 tablet by | 30 | 0 | 05/2 | | Activ | | (LIPITOR) 80 MG | mouth nightly. | tablet | | 1/20 | | e | | tablet | | | | 20 | | | + + + +---------+------+------+-------+ | albuterol 90 | Inhale 1-2 puffs | 1 | 0 | 05/2 | | Activ | | mcg/puff inhaler | into the lungs every | Inhaler | | 1/20 | | e | | | 4 hours as needed | | | 20 | | | | | for Wheezing. | | | | | | + + + +---------+------+------+-------+ | clopidogrel | Take 1 tablet by | 90 | 0 | 05/2 | | Activ | | (PLAVIX) 75 mg | mouth Daily. | tablet | | 2/20 | | e | | tablet | | | | 20 | | | + + + +---------+------+------+-------+ | metoprolol | Take 1 tablet by | 100 | 0 | 05/2 | | Activ | | tartrate (LOPRESSOR) | mouth 2 times daily. | tablet | | 1/20 | | e | | 25 mg tablet | | | | 20 | | | + + + +---------+------+------+-------+ | nitroglycerin | Place 1 tablet under | 25 | 0 | 05/2 | | Activ | | (NITROSTAT) 0.4 mg | the tongue every 5 | tablet | | 1/20 | | e | | SL tablet | minutes as needed | | | 20 | | | | | for Chest pain. | | | | | | + + + +---------+------+------+-------+ Active Problems + + + | Problem | Noted Date | + + + | NSTEMI (non-ST elevated myocardial infarction) | 11/22/2019 | + + + Encounters +--------+ + + + + | Date | Type | Specialty | Care Team | Description | +--------+ + + + + | 03/26/ | Telephone | Cardiology | Edd Mccloud MD | Other (no show for | | 2019 | | | | test) | +--------+ + + + + from Last 3 Months Social History + +-------+ +--------+ + | [...] on file | | + + + Last Filed Vital Signs + + + [...] + + + + | Temperature | 36.4 C (97.5 F) | 11/24/2019 12:09 PM | | | | | PDT | | + + + + + | Respiratory Rate | 18 | 01/10/2020 9:29 AM | | | | | PDT | | + + + + + | Oxygen Saturation | 100% | 11/24/2019 12:09 PM | | | | | PDT [...] | | + + + + + Plan of Treatment + + + + + | Health Maintenance | Due Date | Last | Comments | | | | Done | | + + + + + | Hepatitis C | | | | | Screening | 3 | | | + + + + + | Med Mgmt: [id number] | | | | | | 3 | | | + + + + + | Medication | | | | | Management | 3 | | | + + + + + | Vaccine: | | | | | Pneumococcal 19-64 | 9 | | | | (1 of 1 - PPSV23) | | | | + + + + + | Vaccine: | | | | | Dtap/Tdap/Td (1 - | 2 | | | | Tdap) | | | | + + + + + | Colorectal Cancer | | | | | Screening | 3 | | | | (Colonoscopy) | | | | + + + + + | Vaccine: Zoster (1 | | | | | of 2) | 3 | | | + + + + + | Vaccine: Influenza | | 04/16/20 | | | (#1) | 0 | 19, | | | | | 04/26/20 | | | | | 18, | | | | | 04/21/20 | | | | | 17, | | | | | Addition | | | | | al | | | | | history | | | | | exists | | + + + + + | Med Mgmt: Cr | | 11/24/19 | | | | 1 | 20, | | | | | 11/23/19 | | | | | 20 | | + + + + + | Med Mgmt: eGFR | | 11/24/19 | | | | 1 | 20, | | | | | 11/23/19 | | | | | 20 | | + + + + + Implants + +------+------+ +--------+--------+--------+ | Implanted | Type | Area | Manufacture | Device | Shelf | Model | | | | | r | | Expira | / | | | | | | Identi | tion | Serial | | | | | | fier | Date | / Lot | + +------+------+ +--------+--------+--------+ | Stent Crnry Xience | | | [place] | [id number] | | [id number] | | [id number] - | | | VASCULAR - | [id number] | | [id number] / | | [id number]: Qty: 1 | | | ABVA | 60 | | / | | on 11/23/2019 by Edd Mccloud | | | | | | | | MD J[facility] at [facility] | | | | | | | | [facility] | | | | | | | + +------+------+ +--------+--------+--------+ + + | Description:RCA | + + Results Not on filefrom Last 3 Months Insurance + +--------+ +--------+ +---------+--------+ | Payer | Benefi | Subscriber | Effect | Phone | Address | Type | | | t Plan | ID | aaron | | | | | | / | | Dates | | | | | | Group | | | | | | + +--------+ +--------+ +---------+--------+ | [employer] | [employer] | [id number] | 07/06/19 | [phone] | | Medica | | MEDICAID HMO | HEALTH | | 20-Pre | 1 | | id | | | MDCD | | sent | | | | | | [place] | | | | | | + +--------+ +--------+ +---------+--------+ + +--------+ +--------+ + + | Guarantor Name | Accoun | Relation to | Date | Phone | Billing Address | | | t Type | Patient | of | | | | | | | | | | + +--------+ +--------+ + + | Magdaleno Rick | Person | Self [birth year] [address] | | | al/Fam | | 1965 | [phone] | [place] | | | [place] | | | [address] (Home) | [address] | + +--------+ +--------+ + + Advance Directives + + + + + | Type | Date Recorded | Patient | Explanation | | | | Claims Sorter | | + + + + + | Power of | | | | | [employer] | | | | + + + + + | Advance | 11/23/2019 6:17 | | | | Directive | PM | | | + + + + + + + + + + | Code Status | Date | Date | Comments | | | Activated | Inactivated | | + + + + + | Full Code | 11/22/2019 | 11/24/2019 | | | | 10:30 PM | 5:29 PM | | + + + + +
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
--- OUTSIDE RECORDS SUMMARY | ~2020-04-25 | XMS | Clinical Summary ---
Demographics + + + | Address | [address] | | | [place] [address] | + + + | Home Phone | | + + + | Preferred Language | Unknown | + + + | Marital Status | | + + + | Roman Catholic Affiliation | UNK | + + + | Race | White | + + + | Ethnic Group | Not or | + + + Author + + + | Author | [facility] | + + + | Organization | [facility] | + + + | Address | Unknown | + + + | Phone | Unavailable | + + + Support + + +---------+ + | Name | Relationship | Address | Phone | + + +---------+ + | None Per Pt | ECON | Unknown | Unavailable | + + +---------+ + Care Team Providers + +------+ + | Care Paper Goods Machine Operator Name | Role | Phone | + +------+ + | Pending Pcp Addition | PCP | Unavailable | + +------+ + Source Comments [facility] is fully live on both [facility] and [facility] Allergies + + + + + + | Active Allergy | Reactions | Severity | Noted | Comments | | | | | Date | | + + + + + + | Codeine | Dyspnea | High | 05/21/20 | | | | | | 17 | | + + + + + + | Penicillins | Dyspnea | High | 05/21/20 | | | | | | 17 | | + + + + + + Medications + + + +---------+------+------+-------+ | Medication | Sig | Dispensed | Refills | Star | End | Statu | | | | | | t | Date | s | | | | | | Date | | | + + + +---------+------+------+-------+ | aspirin EC 81 mg | Take 81 mg by mouth. | | 0 | | | Activ | | oral tablet,delayed | | | | | | e | | release (DR/EC) | | | | | | | + + + +---------+------+------+-------+ | atorvastatin 10 mg | Take 10 mg by mouth | | 0 | 03/2 | | Activ | | oral tablet | once daily. | | | 09/22 | | e | | | | | | 20 | | | + + + +---------+------+------+-------+ | VRAYLAR 1.5 mg | Take 1 capsule by | | 0 | 02/1 | | Activ | | oral capsule | mouth once daily. | | | 03/25 | | e | | | | | | 20 | | | + + + +---------+------+------+-------+ | clonazePAM 1 mg | TAKE 1 TABLET BY | | 0 | 04/2 | | Activ | | oral tablet | MOUTH EVERY DAY AT | | | 09/22 | | e | | | BEDTIME | | | 20 | | | + + + +---------+------+------+-------+ | divalproex DR 500 | Take 500 mg by | | 0 | | | Activ | | mg oral | mouth. | | | | | e | | tablet,delayed | | | | | | | | release (DR/EC) | | | | | | | + + + +---------+------+------+-------+ | DULoxetine 30 mg | Take 30 mg by mouth. | | 0 | | | Activ | | oral capsule,delayed | | | | | | e | | release(DR/EC) | | | | | | | + + + +---------+------+------+-------+ | FREESTYLE ROXANA 14 | Use as directed. | | 0 | 02/1 | | Activ | | DAY READER | | | | 9/20 | | e | | miscellaneous (misc) | | | | 20 | | | | misc | | | | | | | + + + +---------+------+------+-------+ | FREESTYLE ROXANA 14 | Use as directed. | | 0 | 05/0 | | Activ | | DAY SENSOR | | | | 20 | | e | | miscellaneous (misc) | | | | 20 | | | | kit | | | | | | | + + + +---------+------+------+-------+ | naproxen 375 mg | TAKE 1 TO 2 TABLETS | | 0 | 03/2 | | Activ | | oral tablet | BY MOUTH ONCE DAILY | | | 09/22 | | e | | | WITH FOOD NEEDED | | | 20 | | | + + + +---------+------+------+-------+ | metFORMIN 1,000 mg | TAKE 1 TABLET BY | | 0 | 03/2 | | Activ | | oral tablet | MOUTH TWICE DAILY | | | 320 | | e | | | WITH MEALS | | | 20 | | | + + + +---------+------+------+-------+ | lisinopriL 5 mg | TAKE 1 TABLET BY | | 0 | 03/2 | | Activ | | oral tablet | MOUTH ONCE DAILY FOR | | | 3/20 | | e | | | BLOOD PRESSURE | | | 20 | | | + + + +---------+------+------+-------+ | BASAGLAR KWIKPEN | INJECT 30 UNITS | | 0 | 03/2 | | Activ | | U-100 INSULIN 100 | SUBCUTANEOUSLY ONCE | | | 3/20 | | e | | unit/mL (3 mL) | DAILY | | | 20 | | | | subcutaneous insulin | | | | | | | | pen | | | | | | | + + + +---------+------+------+-------+ | MYLENE PEN NEEDLE 32 | Use as directed. | | 0 | 03/2 | | Activ | | gauge x 5/32" | | | | 3/20 | | e | | miscellaneous (misc) | | | | 20 | | | | needle | | | | | | | + + + +---------+------+------+-------+ | prazosin 1 mg oral | TAKE 1 CAPSULE BY | | 0 | 03/2 | | Activ | | capsule | MOUTH AT BEDTIME FOR | | | 6/20 | | e | | | 3 DAYS THEN 2 CAPS | | | 20 | | | | | AT BEDTIME | | | | | | | | THEREAFTER | | | | | | + + + +---------+------+------+-------+ | SUMAtriptan 100 mg | TAKE 1 TABLET BY | | 0 | 03/2 | | Activ | | oral tablet | MOUTH TWICE DAILY AT | | | 320 | | e | | | LEAST 2 HOURS | | | 20 | | | | | BETWEEN DOSES | | | | | | | | NEEDED | | | | | | + + + +---------+------+------+-------+ | BD VEO INSULIN | Use as directed. | | 0 | 05/1 | | Activ | | SYRINGE UF 1/2 mL 31 | | | | 320 | | e | | gauge x 15/" | | | | 20 | | | | miscellaneous (misc) | | | | | | | | syringe | | | | | | | + + + +---------+------+------+-------+ | traZODone 100 mg | Take 200 mg by | | 0 | | | Activ | | oral tablet | mouth. | | | | | e | + + + +---------+------+------+-------+ | zolpidem 10 mg | TAKE 1 TABLET BY | | 0 | 03/2 | | Activ | | oral tablet | MOUTH EVERY DAY AT | | | 6/20 | | e | | | BEDTIME | | | 20 | | | + + + +---------+------+------+-------+ Active Problems Not on file Social History + +-------+ +--------+------+ | Tobacco [...] + + + Last Filed Vital Signs Not on file Plan of Treatment + + + + + | Health Maintenance | Due Date | Last | Comments | | | | Done | | + + + + + | Influenza (Flu) | | 04/16/20 | | | vaccination (#1) | 0 | 17, | | | | | 04/26/20 | | | | | 16, | | | | | 04/21/20 | | | | | 15, | | | | | Addition | | | | | al | | | | | history | | | | | exists | | + + + + + | Pneumococcal | Aged Out | | No longer eligible based on patient's age | | vaccination | | | to complete this topic | + + + + + Results Not on filefrom Last 3 Months Insurance + +--------+ +--------+-------+---------+--------+ | Payer | Benefi | Subscriber | Effect | Phone | Address | Type | | | t Plan | ID | aaron | | | | | | / | | Dates | | | | | | Group | | | | | | + +--------+ +--------+-------+---------+--------+ | PACKAGE MAKER MEDICAID | PACKAGE MAKER | [id number] | | | | Medica | | | EASTER | | 020-Pr | | | id | | | N [place] | | esent | | | | + +--------+ +--------+-------+---------+--------+ + +--------+ +--------+ + + | Guarantor Name | Accoun | Relation to | Date | Phone | Billing Address | | | t Type | Patient | of | | | | | | | | | | + +--------+ +--------+ + + | Magdaleno Rick | Person | Self | [birth year] [address] | | | al/Denzel | | 1965 | [phone] | [place] | | | [place] | | | [address] (Home) | [id number] | + +--------+ +--------+ + +
[~2020-04-25 09:27] MED LIST changes: +CLONAZEPAM1 MG PO; +NOVOLIN R100 UNIT/1 INJ; +VRAYLAR6 MG PO
[2020-04-25] MEDS ORDERED: PRIMIDONE50 MG PO (09:48)
[2020-04-25] MEDS ORDERED: VENTOLIN HFA18 GM INH (09:49)
[2020-04-25] MEDS ORDERED: PRAZOSIN HCL1 MG PO (09:49)
--- OUTSIDE RECORDS SUMMARY | 2020-04-25 10:44 | XMS ---
PreManage Notification: MARGARITA LENTZ Security Avionics Installer Events No recent Security Events currently on file CRITERIA MET - [facility] CARE PROVIDERS KIRSTY RICH Physician Bindery Technician 11/23/2019-Current PHONE: Unknown Hakeem has no Care Guidelines for this patient. Truong VISIT COUNT (12 MO.) 3 ROSE Chapin TOTAL 3 NOTE: Visits indicate total known visits. ED/UCC VISIT TRACKING (12 MO.) 04/25/2020 09:28 ROSE [facility] [place] TYPE: Emergency COMPLAINT: - FOOT/ANKLE PAIN 11/22/2019 17:49 RO[facility] [place] TYPE: Emergency COMPLAINT: - CHEST PAIN DIAGNOSES: - Non-ST elevation (NSTEMI) myocardial infarction - Allergy status to penicillin - Nicotine dependence, unspecified, uncomplicated - Type 2 diabetes mellitus without complications - Bee allergy status - Other manager terminal (current) drug therapy - Allergy status to narcotic agent status - Chest pain, unspecified 09/13/2019 20:28 RO[facility] [place] TYPE: Emergency COMPLAINT: - POSS. WOUND INFECTION DIAGNOSES: - Local infection of the skin and subcutaneous tissue, unspecif - Type 2 diabetes mellitus without complications - Bipolar disorder, unspecified - Other prison (current) drug therapy - Allergy status to sulfonamides status - Personal history of nicotine dependence INPATIENT VISIT TRACKING (12 MO.) 11/22/2019 22:[address] [facility] TYPE: Intensive Care DIAGNOSES: - Non-ST elevation (NSTEMI) myocardial infarction [id number]
[2020-04-25] MEDS ORDERED: PERCOCET 5-3251 EACH PO (11:14)
[2020-04-25] MEDS ORDERED: NAPROSYN500 MG PO (11:14)
[2020-04-25] MEDS ORDERED: ONDANSETRON ODT8 MG PO (11:14)
== END 2020-04-25 11:42 | disposition home or self-care (01) ==
LOC: ED 09:27
DX: S93.601A Unspecified sprain of right foot, initial encounter (principal); X50.9XXA Other and unspecified overexertion or strenuous movements or postures, initial encounter; E11.9 Type 2 diabetes mellitus without complications; F31.9 Bipolar disorder, unspecified; G20 Parkinson's disease; Z88.5 Allergy status to narcotic agent; Z88.0 Allergy status to penicillin; Z91.030 Bee allergy status; Z79.899 Other long term (current) drug therapy; Z79.4 Long term (current) use of insulin; Z79.82 Long term (current) use of aspirin
CPT/HCPCS: 73630; 99283-25

== ENCOUNTER 2020-05-17 16:24 | Emergency (ER) | payer OTHER ==
[~2020-05-17] VITALS: Ht 177.8 cm; Wt 117.6 kg
[~2020-05-17 16:24] MED LIST changes: +NAPROSYN500 MG PO; +ONDANSETRON ODT8 MG PO; +PERCOCET 5-3251 EACH PO; +PRAZOSIN HCL1 MG PO; +PRIMIDONE50 MG PO; +VENTOLIN HFA18 GM INH
--- OUTSIDE RECORDS SUMMARY | 2020-05-17 16:26 | XMS ---
PreManage Notification: MARGARITA LENTZ Security P 3 Armament/Ordnance Ima Technician Events No recent Security Events currently on file CRITERIA MET - [facility] - 2 Visits in 30 Days CARE PROVIDERS KIRSTY RICH Physician Dressing Machine Operator 11/23/2019-Current PHONE: Unknown Hakeem has no Care Guidelines for this patient. [place] VISIT COUNT (12 MO.) 4 [facility] TOTAL 4 NOTE: Visits indicate total known visits. ED/UCC VISIT TRACKING (12 MO.) 05/17/2020 16:24 [facility] [place] TYPE: Emergency COMPLAINT: - RIGHT LEG PAIN 04/25/2020 09:28 [facility] [place] TYPE: Emergency COMPLAINT: - FOOT/ANKLE PAIN DIAGNOSES: - Allergy status to penicillin - Unspecified sprain of right foot, initial encounter - Other senior living (current) drug therapy - Other and unspecified overexertion or strenuous movements or postures, initial encounter - Parkinson's disease - Type 2 diabetes mellitus without complications - Allergy status to narcotic agent - Bee allergy status - jail (current) use of insulin - Bipolar disorder, unspecified - jail (current) use of aspirin 11/22/2019 17:49 [facility] [place] TYPE: Emergency COMPLAINT: - CHEST PAIN DIAGNOSES: - Non-ST elevation (NSTEMI) myocardial infarction - Allergy status to penicillin - Nicotine dependence, unspecified, uncomplicated - Type 2 diabetes mellitus without complications - Bee allergy status - Other termination clerk (current) drug therapy - Allergy status to narcotic agent - Chest pain, unspecified 09/13/2019 20:28 [facility] TYPE: Emergency COMPLAINT: - POSS. WOUND INFECTION DIAGNOSES: - Local infection of the skin and subcutaneous tissue, unspecified - Type 2 diabetes mellitus without complications - Bipolar disorder, unspecified - Other senior living (current) drug therapy - Allergy status to sulfonamides - Personal history of nicotine dependence INPATIENT VISIT TRACKING (12 MO.) 11/22/2019 22:10 [facility] TYPE: Intensive Care DIAGNOSES: - Non-ST elevation (NSTEMI) myocardial infarction [id number]
[2020-05-17] MEDS ORDERED: NEURONTIN300 MG PO (17:39)
== END 2020-05-17 18:02 | disposition home or self-care (01) ==
LOC: ED 16:24
DX: M25.571 Pain in right ankle and joints of right foot (principal); E11.9 Type 2 diabetes mellitus without complications; G20 Parkinson's disease; F31.9 Bipolar disorder, unspecified; F17.200 Nicotine dependence, unspecified, uncomplicated; Z88.0 Allergy status to penicillin; Z88.5 Allergy status to narcotic agent; Z91.030 Bee allergy status; Z79.899 Other long term (current) drug therapy; Z79.4 Long term (current) use of insulin; Z79.82 Long term (current) use of aspirin
CPT/HCPCS: 73610; 93971; 99284-25

== ENCOUNTER 2020-06-05 12:54 | Emergency (ER) | payer OTHER ==
[~2020-06-05] VITALS: Ht 177.8 cm; Wt 117.6 kg
[~2020-06-05 12:54] MED LIST changes: +NEURONTIN300 MG PO
--- OUTSIDE RECORDS SUMMARY | 2020-06-05 12:56 | XMS ---
PreManage Notification: MARGARITA LENTZ Security Coil Connector Events No recent Security Events currently on file CRITERIA MET - [facility] - 2 Visits in 30 Days CARE PROVIDERS KIRSTY RICH Physician Conventional Mortgage Underwriter 11/23/2019-Current PHONE: Unknown Hakeem has no Care Guidelines for this patient. [place] VISIT COUNT (12 MO.) [address] [place] [address] TOTAL 5 NOTE: Visits indicate total known visits. ED/UCC VISIT TRACKING (12 MO.) 06/05/2020 12:54 [facility] [place] TYPE: Emergency COMPLAINT: - R FOOT TOE PAIN 05/17/2020 16:24 [facility] [place] TYPE: Emergency COMPLAINT: - RIGHT LEG PAIN DIAGNOSES: - Allergy status to penicillin - Other intermediate (current) drug therapy - Parkinson's disease - Type 2 diabetes mellitus without complications - Bee allergy status - Pain in right ankle and joints of right foot - technician terminal and repeater (current) use of insulin - Bipolar disorder, unspecified - Allergy status to narcotic agent - Nicotine dependence, unspecified, uncomplicated - [facility] (current) use of aspirin 04/25/2020 09:28 [facility] [place] TYPE: Emergency COMPLAINT: - FOOT/ANKLE PAIN DIAGNOSES: - Allergy status to penicillin - Unspecified sprain of right foot, initial encounter - Other terminal worker (current) drug therapy - Other and unspecified overexertion or strenuous movements or postures, initial encounter - Parkinson's disease - Type 2 diabetes mellitus without complications - Allergy status to narcotic agent - Bee allergy status - [facility] (current) use of insulin - Bipolar disorder, unspecified - technician terminal and repeater (current) use of aspirin 11/22/2019 17:49 [facility] [place] TYPE: Emergency COMPLAINT: - CHEST PAIN DIAGNOSES: - Non-ST elevation (NSTEMI) myocardial infarction - Allergy status to penicillin - Nicotine dependence, unspecified, uncomplicated - Type 2 diabetes mellitus without complications - Bee allergy status - Other terminal worker (current) drug therapy - Allergy status to narcotic agent - Chest pain, unspecified 09/13/2019 20:28 [facility] [place] TYPE: Emergency COMPLAINT: - POSS. WOUND INFECTION DIAGNOSES: - Local infection of the skin and subcutaneous tissue, unspecified - Type 2 diabetes mellitus without complications - Bipolar disorder, unspecified - Other terminal worker (current) drug therapy - Allergy status to sulfonamides - Personal history of nicotine dependence INPATIENT VISIT TRACKING (12 MO.) 11/22/2019 22:10 [facility] TYPE: Intensive Care DIAGNOSES: - Non-ST elevation (NSTEMI) myocardial infarction [id number]
[2020-06-05] MEDS ORDERED: LANTUS100 UNITS/ SUB-Q (14:28)
[2020-06-05] MEDS ORDERED: CLEOCIN HCL300 MG PO ×2 (18:28→18:29)
== END 2020-06-05 19:10 | disposition home or self-care (01) ==
LOC: ED 12:54
DX: L03.031 Cellulitis of right toe (principal); E11.9 Type 2 diabetes mellitus without complications; F17.200 Nicotine dependence, unspecified, uncomplicated; Z88.0 Allergy status to penicillin; Z88.5 Allergy status to narcotic agent; Z91.030 Bee allergy status; Z79.899 Other long term (current) drug therapy
CPT/HCPCS: 73660; 80053; 83605; 84550; 85025; 85651; 86140; 96374; 96375; 96376; 99283-25; J2270

== ENCOUNTER 2020-08-22 05:49 | Emergency (ER) | payer OTHER ==
[~2020-08-22] VITALS: Ht 177.8 cm; Wt 117.6 kg
[~2020-08-22 05:49] MED LIST changes: +CLEOCIN HCL300 MG PO; +LANTUS100 UNITS/ SUB-Q
--- OUTSIDE RECORDS SUMMARY | 2020-08-22 05:52 | XMS ---
PreManage Notification: MARGARITA LENTZ Security Windows Application Developer Events No recent Security Events currently on file CRITERIA MET - [facility] CARE PROVIDERS KIRSTY RICH Physician Supervisor Roving 11/23/2019-Current PHONE: Unknown Hakeem has no Care Guidelines for this patient. [place] VISIT COUNT (12 MO.) 6 [facility] TOTAL 6 NOTE: Visits indicate total known visits. ED/UCC VISIT TRACKING (12 MO.) 08/22/2020 05:50 [facility] [place] TYPE: Emergency COMPLAINT: - SOB,CHEST PAIN 06/05/2020 12:54 [facility] [place] TYPE: Emergency COMPLAINT: - R FOOT TOE PAIN DIAGNOSES: - Allergy status to penicillin - Pain in right foot - Nicotine dependence, unspecified, uncomplicated - Type 2 diabetes mellitus without complications - Allergy status to narcotic agent - Bee allergy status - Cellulitis of right toe - Other computer terminal operator (current) drug therapy - Allergy status to narcotic agent 05/17/2020 16:24 [facility] [place] TYPE: Emergency COMPLAINT: - RIGHT LEG PAIN DIAGNOSES: - Allergy status to penicillin - Other computer terminal operator (current) drug therapy - Parkinson's disease - Type 2 diabetes mellitus without complications - Bee allergy status - Allergy status to narcotic agent - Pain in right ankle and joints of right foot - superintendent terminal (current) use of insulin - Bipolar disorder, unspecified - Allergy status to narcotic agent - Nicotine dependence, unspecified, uncomplicated - superintendent terminal (current) use of aspirin 04/25/2020 09:28 [facility] [place] TYPE: Emergency COMPLAINT: - FOOT/ANKLE PAIN DIAGNOSES: - Allergy status to penicillin - Unspecified sprain of right foot, initial encounter - Other half-way (current) drug therapy - Other and unspecified overexertion or strenuous movements or postures, initial encounter - Parkinson's disease - Allergy status to narcotic agent - Type 2 diabetes mellitus without complications - Allergy status to narcotic agent - Bee allergy status - superintendent terminal (current) use of insulin - Bipolar disorder, unspecified - superintendent terminal (current) use of aspirin 11/22/2019 17:49 [facility] [place] TYPE: Emergency COMPLAINT: - CHEST PAIN DIAGNOSES: - Non-ST elevation (NSTEMI) myocardial infarction - Allergy status to penicillin - Nicotine dependence, unspecified, uncomplicated - Type 2 diabetes mellitus without complications - Bee allergy status - Other computer terminal operator (current) drug therapy - Allergy status to narcotic agent - Chest pain, unspecified 09/13/2019 20:28 RO[facility] Garcia TYPE: Emergency COMPLAINT: - POSS. WOUND INFECTION DIAGNOSES: - Local infection of the skin and subcutaneous tissue, unspecified - Type 2 diabetes mellitus without complications - Bipolar disorder, unspecified - Other half-way (current) drug therapy - Allergy status to sulfonamides - Personal history of nicotine dependence INPATIENT VISIT TRACKING (12 MO.) 11/22/2019 22:[address] [facility] TYPE: Intensive Care DIAGNOSES: - Non-ST elevation (NSTEMI) myocardial infarction [id number]
--- NOTE | 2020-08-22 07:26 | EKG ---
[facility] [address] [place] [address] Signed Sinus tachycardia Right axis deviation Pulmonary disease pattern Nonspecific T wave abnormality Abnormal ECG When compared with ECG of 22-NOV-2019 17:58, Vent. rate has increased BY 67 BPM QRS axis shifted right T wave inversion now evident in Anterior leads Confirmed by MERA STANLEY MD ([id number]) on 08/22/2020 7:26:21 AM Electronically Signed By: MERA STANLEY MD 08/22/20 0726 PATIENT NAME: TORMARGARITA JR Electrocardiogram DATE OF : 61 PHYSICIAN: MERA STANLEY MD REPORT #: [id number] REPORT IS CONFIDENTIAL AND NOT TO BE RELEASED WITHOUT AUTHORIZATION
[2020-08-22] MEDS ORDERED: PRAZOSIN HCL1 MG PO (11:07)
[2020-08-22] MEDS ORDERED: GLIMEPIRIDE4 MG PO (11:09)
[2020-08-22] MEDS ORDERED: BUDESONIDE-FO10.2 G1 INH (11:09)
[2020-08-22] MEDS ORDERED: VENTOLIN HFA18 GM INH (11:58)
== END 2020-08-22 12:18 | disposition short-term general hospital (02) ==
LOC: ED 05:49
DX: I26.99 Other pulmonary embolism without acute cor pulmonale (principal); E11.9 Type 2 diabetes mellitus without complications; G20 Parkinson's disease; F17.200 Nicotine dependence, unspecified, uncomplicated; Z88.0 Allergy status to penicillin; Z88.5 Allergy status to narcotic agent; Z91.030 Bee allergy status; Z79.899 Other long term (current) drug therapy; Z79.4 Long term (current) use of insulin; Z20.822 Contact with and (suspected) exposure to COVID-19
CPT/HCPCS: 71045; 71260; 76705; 80053; 83735; 84484; 85025; 93005; 93010; 99285-25; 99406; C9803; J0692; J1644; J2270; J2405; J3010; J7030; Q9967; U0003

== ENCOUNTER 2020-08-26 21:17 | Emergency (ER) | payer OTHER ==
[~2020-08-26] VITALS: Ht 177.8 cm; Wt 117.6 kg
[~2020-08-26 21:17] MED LIST changes: +BUDESONIDE-FO10.2 G1 INH; +GLIMEPIRIDE4 MG PO
--- OUTSIDE RECORDS SUMMARY | 2020-08-26 21:20 | XMS ---
PreManage Notification: MARGARITA LENTZ Security Driving Instructor Events No recent Security Events currently on file CRITERIA MET - 6 ED Visits in 6 Months - [facility] - 2 Visits in 30 Days CARE PROVIDERS KIRSTY RICH Physician 11/23/2019-Current PHONE: Unknown [facility] 08/23/2020-Current PHONE: [phone] Hakeem has no Care Guidelines for this patient. E.Marita VISIT COUNT (12 MO.) [address] [place] [address] TOTAL 8 NOTE: Visits indicate total known visits. ED/UCC VISIT TRACKING (12 MO.) 08/26/2020 21:18 RO[facility] Garcia TYPE: Emergency COMPLAINT: - SOB (RELEASED FROM [facility] BLOOD CLOTS 08/25) 08/22/2020 13:36 [facility] TYPE: Emergency DIAGNOSES: - Acute respiratory failure with hypoxia - Other pulmonary embolism without acute cor pulmonale - Shortness of Breath 08/22/2020 05:50 [facility] [place] TYPE: Emergency COMPLAINT: - SOB,CHEST PAIN 06/05/2020 12:54 [facility] [place] TYPE: Emergency COMPLAINT: - R FOOT TOE PAIN DIAGNOSES: - Allergy status to penicillin - Pain in right foot - Nicotine dependence, unspecified, uncomplicated - Type 2 diabetes mellitus without complications - Allergy status to narcotic agent - Bee allergy status - Cellulitis of right toe - Other manager terminal (current) drug therapy - Allergy status to narcotic agent 05/17/2020 16:24 [facility] [place] TYPE: Emergency COMPLAINT: - RIGHT LEG PAIN DIAGNOSES: - Allergy status to penicillin - Other half-way (current) drug therapy - Parkinson's disease - Type 2 diabetes mellitus without complications - Bee allergy status - Allergy status to narcotic agent - Pain in right ankle and joints of right foot - [facility] (current) use of insulin - Bipolar disorder, [...] narcotic agent - Bee allergy status - [facility] (current) use of insulin - Bipolar disorder, unspecified - superintendent terminal (current) use of aspirin 11/22/2019 17:49 [facility] [place] TYPE: Emergency COMPLAINT: - CHEST PAIN DIAGNOSES: - Non-ST elevation (NSTEMI) myocardial infarction - Allergy status to penicillin - Nicotine dependence, unspecified, uncomplicated - Type 2 diabetes mellitus without complications - Bee allergy status - Other half-way (current) drug therapy - [...] nicotine dependence INPATIENT VISIT TRACKING (12 MO.) 08/22/2020 13:36 [facility] TYPE: Internal Medicine DIAGNOSES: - Encounter for screening for malignant neoplasm of colon - Acute respiratory failure with hypoxia - Other pulmonary embolism without acute cor pulmonale [facility]2019 [facility] DIAGNOSES: - Non-ST elevation (NSTEMI) myocardial infarction [id number]
[2020-08-26] MEDS ORDERED: ELIQUIS5 MG PO (21:45)
[2020-08-26] MEDS ORDERED: TRANSDERM-SCOP1 EACH TD (23:35)
[2020-08-26] MEDS ORDERED: MECLIZINE HCL25 MG PO (23:35)
[2020-08-26] MEDS ORDERED: HYDROCODON-ACE1 EA10 PO (23:35)
--- NOTE | 2020-08-28 22:00 | EKG ---
[facility] [address] [facility] [place] [address] Signed Normal sinus rhythm Low voltage QRS ST \T\ T wave abnormality, consider anterior ischemia Prolonged QT Abnormal ECG When compared with ECG of 22-AUG-2020 05:53, QRS axis shifted left ST no longer depressed in Lateral leads Confirmed by JOSE WALTON MD ([id number]) on 08/28/2020 10:00:11 PM Electronically Signed By: JOSE WALTON MD 08/28/202199 PATIENT NAME: TORMARGARITA JULY JR Electrocardiogram DATE OF : 61 PHYSICIAN: JOSE WALTON MD REPORT #: [id number] REPORT IS CONFIDENTIAL AND NOT TO BE RELEASED WITHOUT AUTHORIZATION
== END 2020-08-26 23:55 | disposition home or self-care (01) ==
LOC: ED 21:17
DX: I26.99 Other pulmonary embolism without acute cor pulmonale (principal); K59.00 Constipation, unspecified; E11.9 Type 2 diabetes mellitus without complications; G20 Parkinson's disease; F17.200 Nicotine dependence, unspecified, uncomplicated; Z88.0 Allergy status to penicillin; Z88.5 Allergy status to narcotic agent; Z91.030 Bee allergy status; Z79.899 Other long term (current) drug therapy; Z79.4 Long term (current) use of insulin
CPT/HCPCS: 70450; 71045; 71260; 80053; 83880; 84484; 85025; 85610; 85730; 93005; 93010; 96374; 96375; 99285-25; J1170; J2405

== ENCOUNTER 2021-01-10 18:38 | Emergency (ER) | payer OTHER ==
[~2021-01-10] VITALS: Ht 177.8 cm; Wt 88.6 kg
[~2021-01-10 18:38] MED LIST changes: +ELIQUIS5 MG PO; +HYDROCODON-ACE1 EA10 PO; +MECLIZINE HCL25 MG PO; +TRANSDERM-SCOP1 EACH TD
--- OUTSIDE RECORDS SUMMARY | 2021-01-10 18:40 | XMS ---
PreManage Notification: MARGARITA LENTZ Security Business Services Coordinator Events No recent Security Events currently on file CRITERIA MET - [facility] KIRSTY RICH Physician Printed Circuit Board Panels Developer 11/23/2019-Current PHONE: [facility]Current PHONE: [phone] Hakeem has no Care Guidelines for this patient. Care History Medical/Surgical 08/27/2020 [facility] - W CONTACTED PATIENT- PATIENT WAS WITH HIS FRIEND WHO IS VISITING FROM [facility] AT [facility] GETTING BREAKFAST. - PATIENT IS SOUNDING SHORT OF BREATH AND COUGHING ALOT- CHW CONCERNED FOR PATIENT AND DISCUSSED AN APT WITH PCP PATIENT STATED HE HAS AN APT WITH DR JAVED ON Thursday08/29/20 AT 3:20PM. THAT IS THE EARLIEST APT CONFIRMED WITH [facility]- PATIENT WAS REFERRED TO URGENT CARE AND OR ER IF SYMPTOMS PROGRESS. - PATIENT FRIEND IS GOING TO CELL LINER MEDICATIONS FROM [facility] TODAY. - PATIENT IS AWARE OF THE MEDICAL TRANSPORT NUMBER AND USES IT WHEN HE NEEDS TRANSPORT TO APTS. E.D. VISIT COUNT (12 MO.) 1 [place] [address] ROSE Chapin TOTAL 7 NOTE: Visits indicate total known visits. ED/UCC VISIT TRACKING (12 MO.) 01/10/2021 18:39 ROSE Smith [place] TYPE: Emergency COMPLAINT: - RT FOOT PAIN 08/26/2020 21:18 ROSE Garcia TYPE: Emergency COMPLAINT: - SOB (RELEASED FROM [facility] BLOOD CLOTS 08/25) DIAGNOSES: - Bee allergy status - Parkinson's disease - intermodal owner operator truck driver (current) use of insulin - Allergy status to penicillin - Chest pain, unspecified - Nicotine dependence, unspecified, uncomplicated - Other shelter (current) drug therapy - Constipation, unspecified - Other pulmonary embolism without acute cor pulmonale - Type 2 diabetes mellitus without complications - Allergy status to narcotic agent 08/22/2020 13:36 [facility] TYPE: Emergency DIAGNOSES: - Acute respiratory failure with hypoxia - Other pulmonary embolism without acute cor pulmonale - Shortness of Breath 08/22/2020 05:50 ROSE Garcia TYPE: Emergency COMPLAINT: - SOB,CHEST PAIN DIAGNOSES: - Nicotine dependence, unspecified, uncomplicated - Type 2 diabetes mellitus without complications - Chest pain, unspecified - Allergy status to penicillin - Other intermodal owner operator truck driver (current) drug therapy - Bee allergy status - Parkinson's disease - intermodal owner operator truck driver (current) use of insulin - Allergy status to narcotic agent - Other pulmonary embolism without acute cor pulmonale 06/05/2020 12:54 ROSE Smith [place] TYPE: Emergency COMPLAINT: - R FOOT TOE PAIN DIAGNOSES: - Allergy status to penicillin - Pain in right foot - Nicotine dependence, unspecified, uncomplicated - Type 2 diabetes mellitus without complications - Allergy status to narcotic agent - Bee allergy status - Cellulitis of right toe - Other shelter (current) drug therapy - Allergy status to narcotic agent 05/17/2020 16:24 ROSE Smith [place] TYPE: Emergency COMPLAINT: - RIGHT LEG PAIN DIAGNOSES: - Allergy status to penicillin - Other intermodal owner operator truck driver (current) drug therapy - Parkinson's disease - Type 2 diabetes mellitus without complications - Bee allergy status - Allergy status to narcotic agent - Pain in right ankle and joints of right foot - intermodal owner operator truck driver (current) use of insulin - Bipolar disorder, unspecified - Allergy status to narcotic agent - Nicotine dependence, unspecified, uncomplicated - intermodal owner operator truck driver (current) use of aspirin 04/25/2020 09:28 ROSE Smith [place] TYPE: Emergency COMPLAINT: - FOOT/ANKLE PAIN DIAGNOSES: - Allergy status to penicillin - Unspecified sprain of right foot, initial encounter - Other shelter (current) drug therapy - Other and unspecified overexertion or strenuous movements or postures, initial encounter - Parkinson's disease - Allergy status to narcotic agent - Type 2 diabetes mellitus without complications - Allergy status to narcotic agent - Bee allergy status - intermodal owner operator truck driver (current) use of insulin - Bipolar disorder, unspecified - correction (current) use of aspirin INPATIENT VISIT TRACKING (12 MO.) 08/22/2020 13:[facility] DIAGNOSES: - Encounter for screening for malignant neoplasm of colon - Acute respiratory failure with hypoxia - Other pulmonary embolism without acute cor pulmonale [id number]
[2021-01-11] MEDS ORDERED: PERCOCET 5-3251 EACH PO (02:09)
== END 2021-01-11 02:23 | disposition home or self-care (01) ==
LOC: ED 18:38
DX: E11.51 Type 2 diabetes mellitus with diabetic peripheral angiopathy without gangrene (principal); E11.40 Type 2 diabetes mellitus with diabetic neuropathy, unspecified; F17.200 Nicotine dependence, unspecified, uncomplicated; Z88.0 Allergy status to penicillin; Z88.5 Allergy status to narcotic agent; Z79.899 Other long term (current) drug therapy; Z79.4 Long term (current) use of insulin
CPT/HCPCS: 80053; 85025; 85610; 85730; 93926; 99284-25

== ENCOUNTER 2021-01-23 11:40 | Emergency (ER) | payer OTHER ==
[~2021-01-23] VITALS: Ht 177.8 cm; Wt 94.9 kg
--- OUTSIDE RECORDS SUMMARY | 2021-01-23 11:42 | XMS ---
PreManage Notification: MARGARITA LENTZ Security Dianeticist Events No recent Security Events currently on file CRITERIA MET - [facility] - [facility] - 2 Visits in 30 Days CARE PROVIDERS KIRSTY RICH Physician Freight Booker 11/23/2019-Current PHONE: [facility]-Current PHONE: [phone] Hakeem has no Care Guidelines for this patient. Care History Medical/Surgical 08/27/2020 [facility] - CHW CONTACTED PATIENT- PATIENT WAS WITH HIS FRIEND WHO IS VISITING FROM [place] AT [facility] GETTING BREAKFAST. - PATIENT IS SOUNDING SHORT OF BREATH AND COUGHING ALOT- CHW CONCERNED FOR PATIENT AND DISCUSSED AN APT WITH PCP PATIENT STATED HE HAS AN APT WITH DR JAVED ON Thursday08/29/20 AT 3:20PM. THAT IS THE EARLIEST APT CONFIRMED WITH [facility]- PATIENT WAS REFERRED TO URGENT CARE AND OR ER IF SYMPTOMS PROGRESS. - PATIENT FRIEND IS GOING TO PROFESSOR OF THEOLOGY MEDICATIONS FROM [facility] TODAY. - PATIENT IS AWARE OF THE MEDICAL TRANSPORT NUMBER AND USES IT WHEN HE NEEDS TRANSPORT TO [facility] [place] VISIT COUNT (12 MO.) [address] [facility] 7 ROSE Chapin TOTAL 8 NOTE: Visits indicate total known visits. ED/UCC VISIT TRACKING (12 MO.) 01/23/2021 11:40 ROSE [place] TYPE: Emergency COMPLAINT: - BLOOD PRESSURE PROBLEM 01/10/2021 18:39 ROSE Smith [place] TYPE: Emergency COMPLAINT: - RT FOOT PAIN/NO INJ DIAGNOSES: - Allergy status to penicillin - Pain in right foot - Type 2 diabetes mellitus with diabetic neuropathy, unspecified - Allergy status to narcotic agent - intermediate (current) use of insulin - Type 2 diabetes mellitus with diabetic peripheral angiopathy without gangrene - Other [facility] (current) drug therapy - Nicotine dependence, unspecified, uncomplicated 08/26/2020 21:18 ROSE Garcia TYPE: Emergency COMPLAINT: - SOB (RELEASED FROM [facility] BLOOD CLOTS 08/25) DIAGNOSES: - Bee allergy status - Parkinson's disease - supervisor intermediates (current) use of insulin - Allergy status to penicillin - Chest pain, unspecified - Nicotine dependence, unspecified, uncomplicated - Other [facility] (current) drug therapy - Constipation, unspecified - Other pulmonary embolism without acute cor pulmonale - Type 2 diabetes mellitus without complications - Allergy status to narcotic agent 08/22/2020 13:36 [facility] TYPE: Emergency DIAGNOSES: - Acute respiratory failure with hypoxia - Other pulmonary embolism without acute cor pulmonale - Shortness of Breath 08/22/2020 05:50 ROSE Smith [place] TYPE: Emergency COMPLAINT: - SOB,CHEST PAIN DIAGNOSES: - Nicotine dependence, unspecified, uncomplicated - Type 2 diabetes mellitus without complications - Chest pain, unspecified - Allergy status to penicillin - Other [facility] (current) drug therapy - Bee allergy status - Parkinson's disease - supervisor intermediates (current) use of insulin - Allergy status [...] - Cellulitis of right toe - Other watermaster (current) drug therapy - Allergy status to narcotic agent 05/17/2020 16:24 ROSE [place] TYPE: Emergency COMPLAINT: - RIGHT LEG PAIN DIAGNOSES: - Allergy status to penicillin - Other watermaster (current) drug therapy - Parkinson's disease - Type 2 diabetes mellitus without complications - Bee allergy status - Allergy status to narcotic agent - Pain in right ankle and joints of right foot - supervisor intermediates (current) use of insulin - Bipolar disorder, unspecified - Allergy status to narcotic agent - Nicotine dependence, unspecified, uncomplicated - supervisor intermediates (current) use of aspirin 04/25/2020 09:28 ROSE Smith [place] TYPE: Emergency COMPLAINT: - FOOT/ANKLE PAIN DIAGNOSES: - Allergy status to penicillin - Unspecified sprain of right foot, initial encounter - Other watermaster (current) drug therapy - Other and unspecified overexertion or strenuous movements or postures, initial encounter - Parkinson's disease - Allergy status to narcotic agent - Type 2 diabetes mellitus without complications - Allergy status to narcotic agent - Bee allergy status - intermediate (current) use of insulin - Bipolar disorder, unspecified - intermediate (current) use of aspirin INPATIENT VISIT TRACKING (12 MO.) 08/22/2020 13:36 [facility] TYPE: Internal Medicine DIAGNOSES: - Encounter for screening for malignant neoplasm of colon - Acute respiratory failure with hypoxia - Other pulmonary embolism without acute cor pulmonale [id number]
[2021-01-23] MEDS ORDERED: SULFAMETHOXAZO1 EAC1 PO (11:54)
[2021-01-23] MEDS ORDERED: DOXYCYCLINE MO100 MG PO (11:54)
[2021-01-23] MEDS ORDERED: FUROSEMIDE20 MG PO (11:55)
[2021-01-23] MEDS ORDERED: BENZONATATE100 MG PO (11:55)
--- NOTE | 2021-01-23 16:13 | EKG ---
[facility] [address] [place] [address] Signed Sinus tachycardia Rightward axis Low voltage QRS Incomplete right bundle branch block ST \T\ T wave abnormality, consider inferior ischemia Abnormal ECG When compared with ECG of 26-AUG-2020 21:25, Incomplete right bundle branch block is now present ST now depressed in Lateral leads Nonspecific T wave abnormality no longer evident in Lateral leads Confirmed by JOSE WALTON MD ([id number]) on 01/23/2021 4:13:41 PM Electronically Signed By: JOSE WALTON MD 01/23/21 1613 PATIENT NAME: MARGARITA LENTZ Electrocardiogram DATE OF : 61 PHYSICIAN: JOSE WALTON MD REPORT #: [id number] REPORT IS CONFIDENTIAL AND NOT TO BE RELEASED WITHOUT AUTHORIZATION
--- NOTE | 2021-01-23 16:14 | EKG ---
[facility] [address] [facility] [place] [address] Signed Sinus tachycardia Right axis deviation Low voltage QRS Incomplete right bundle branch block ST \T\ T wave abnormality, consider inferior ischemia ST \T\ T wave abnormality, consider anterior ischemia Abnormal ECG When compared with ECG of 23-JAN-2021 11:45, (Unconfirmed) No significant change was found Confirmed by JOSE WALTON MD ([id number]) on 01/23/2021 4:14:17 PM Electronically Signed By: JOSE WALTON MD 01/23/21 1614 PATIENT NAME: MARGARITA LENTZ Electrocardiogram DATE OF : 61 PHYSICIAN: JOSE WALTON MD REPORT #: [id number] REPORT IS CONFIDENTIAL AND NOT TO BE RELEASED WITHOUT AUTHORIZATION
== END 2021-01-23 21:40 | disposition short-term general hospital (02) ==
LOC: ED 11:40
DX: I26.92 Saddle embolus of pulmonary artery without acute cor pulmonale (principal); E11.65 Type 2 diabetes mellitus with hyperglycemia; G20 Parkinson's disease; F17.200 Nicotine dependence, unspecified, uncomplicated; Z88.0 Allergy status to penicillin; Z88.5 Allergy status to narcotic agent; Z91.030 Bee allergy status; Z91.013 Allergy to seafood; Z79.899 Other long term (current) drug therapy; Z79.4 Long term (current) use of insulin; Z20.822 Contact with and (suspected) exposure to COVID-19
CPT/HCPCS: 71045; 71260; 80053; 84484; 85025; 85379; 85730; 93005; 93010; 96375; 99285-25; A9270; C9803; J1644; J1815; J2270; J2997; J7030; J7040; Q9967; U0003

== ENCOUNTER 2021-02-07 14:24 | Emergency (ER) | payer OTHER ==
[~2021-02-07] VITALS: Ht 177.8 cm; Wt 88.5 kg
[~2021-02-07 14:24] MED LIST changes: +BENZONATATE100 MG PO; +DOXYCYCLINE MO100 MG PO; +FUROSEMIDE20 MG PO; +SULFAMETHOXAZO1 EAC1 PO
--- OUTSIDE RECORDS SUMMARY | 2021-02-07 14:26 | XMS ---
PreManage Notification: MARGARITA LENTZ Security Hand Iii Cutter Events No recent Security Events currently on file CRITERIA MET - [facility] - 2 Visits in 30 Days - PD[facility] - 6 ED Visits in 6 Months CARE PROVIDERS Whit Rosas Color Coater/Propeller Mechanic 02/06/2021-Current PHONE: [phone] KIRSTY RICH Physician Baggage Clerk 11/23/2019-Current PHONE: Unknown [facility] 08/23/2020-Current PHONE: [phone] Hakeem has no Care Guidelines for this patient. Care History Medical/Surgical 08/27/2020 [facility] - W CONTACTED PATIENT- PATIENT WAS WITH HIS FRIEND WHO IS VISITING FROM [place]- AT [place] GETTING BREAKFAST. - PATIENT IS SOUNDING SHORT OF BREATH AND COUGHING ALOT- CHW CONCERNED FOR PATIENT AND DISCUSSED AN APT WITH PCP PATIENT STATED HE HAS AN APT WITH DR JAVED ON Thursday08/29/20 AT 3:20PM. THAT IS THE EARLIEST APT CONFIRMED WITH [facility]- PATIENT WAS REFERRED TO URGENT CARE AND OR ER IF SYMPTOMS PROGRESS. - PATIENT FRIEND IS GOING TO REPAIRER WELDING EQUIPMENT MEDICATIONS FROM [facility] TODAY. - PATIENT IS AWARE OF THE MEDICAL TRANSPORT NUMBER AND USES IT WHEN HE NEEDS TRANSPORT TO APTS. E.D. VISIT COUNT (12 MO.) [address] [facility] TOTAL 9 NOTE: Visits indicate total known visits. ED/UCC VISIT TRACKING (12 MO.) 02/07/2021 14:25 ROSE Smith [place] TYPE: Emergency COMPLAINT: - FALL, R LEG PAIN 01/23/2021 11:40 ROSE Smith [place] TYPE: Emergency COMPLAINT: - BLOOD PRESSURE PROBLEM DIAGNOSES: - Allergy status to narcotic agent - Allergy to seafood - intermodal truck driver (current) use of insulin - Bee allergy status - Nicotine dependence, unspecified, uncomplicated - Chest pain, unspecified - Saddle embolus of pulmonary artery without acute cor pulmonale - Allergy status to penicillin - Type 2 diabetes mellitus with hyperglycemia - Parkinson's disease - Other superintendent terminal (current) drug therapy 01/10/2021 18:39 ROSE Smith [place] TYPE: Emergency COMPLAINT: - RT FOOT PAIN/NO INJ DIAGNOSES: - Allergy status to penicillin - Pain in right foot - Type 2 diabetes mellitus with diabetic neuropathy, unspecified - Allergy status to narcotic agent - intermodal truck driver (current) use of insulin - Type 2 diabetes mellitus with diabetic peripheral angiopathy without gangrene - Other senior care (current) drug therapy - Nicotine dependence, unspecified, uncomplicated 08/26/2020 21:18 ROSE Garcia TYPE: Emergency COMPLAINT: - SOB (RELEASED FROM [facility] BLOOD CLOTS 08/25) DIAGNOSES: - Bee allergy status - Parkinson's disease - long-term (current) use of insulin - Allergy status to penicillin - Chest pain, unspecified - Nicotine dependence, unspecified, uncomplicated - Other superintendent terminal (current) drug therapy - Constipation, unspecified - Other pulmonary embolism without acute cor pulmonale - Type 2 diabetes mellitus without complications - Allergy status to narcotic agent 08/22/2020 13:36 [facility] TYPE: Emergency DIAGNOSES: - Acute respiratory failure with hypoxia - Other pulmonary embolism without acute cor pulmonale - Shortness of Breath 08/22/2020 05:50 ROSE Smith [place] TYPE: Emergency COMPLAINT: - SOB,CHEST PAIN DIAGNOSES: - Nicotine dependence, unspecified, uncomplicated - Type 2 diabetes mellitus without complications - Chest pain, unspecified - Allergy status to penicillin - Other superintendent terminal (current) drug therapy - Bee allergy status - Parkinson's disease - intermodal truck driver (current) use of insulin - [...] - Cellulitis of right toe - Other senior care (current) drug therapy - Allergy status to narcotic agent 05/17/2020 16:24 ROSE Smith [place] TYPE: Emergency COMPLAINT: - RIGHT LEG PAIN DIAGNOSES: - Allergy status to penicillin - Other superintendent terminal (current) drug therapy - Parkinson's disease - Type 2 diabetes mellitus without complications - Bee allergy status - Allergy status to narcotic agent - Pain in right ankle and joints of right foot - long-term (current) use of insulin - Bipolar disorder, unspecified - Allergy status to narcotic agent - Nicotine dependence, unspecified, uncomplicated - intermodal truck driver (current) use of aspirin 04/25/2020 09:28 ROSE Smith [place] TYPE: Emergency COMPLAINT: - FOOT/ANKLE PAIN DIAGNOSES: - Allergy status to penicillin - Unspecified sprain of right foot, initial encounter - Other senior care (current) drug therapy - Other and unspecified overexertion or strenuous movements or postures, initial encounter - Parkinson's disease - Allergy status to narcotic agent - Type 2 diabetes mellitus without complications - Allergy status to narcotic agent - Bee allergy status - intermodal truck driver (current) use of insulin - Bipolar disorder, unspecified - long-term (current) use of aspirin INPATIENT VISIT TRACKING (12 MO.) 01/23/2021 23:03 [facility] [place] TYPE: Intermediate Care DIAGNOSES: - Gangrene, not elsewhere classified - Atherosclerosis of [place] arteries of right leg with ulceration of other part of foot - Other pulmonary embolism without acute cor pulmonale - Atheroembolism of unspecified lower extremity 08/22/2020 13:36 [facility] TYPE: Internal Medicine DIAGNOSES: - Encounter for screening for malignant neoplasm of colon - Acute respiratory failure with hypoxia - Other pulmonary embolism without acute cor pulmonale [id number]
[2021-02-07] MEDS ORDERED: PRAZOSIN HCL5 MG PO (15:52)
[2021-02-07] MEDS ORDERED: ENOXAPARIN100 MG/1 M SUB-Q (15:52)
[2021-02-07] MEDS ORDERED: ATORVASTATIN CA80 MG PO (15:52)
[2021-02-07] MEDS ORDERED: HYDROCODON-ACE1 EA10 PO (15:52)
[2021-02-07] MEDS ORDERED: OXYCODONE HCL5 MG PO (16:25)
== END 2021-02-07 16:49 | disposition home or self-care (01) ==
LOC: ED 14:24
DX: Z04.3 Encounter for examination and observation following other accident (principal); W19.XXXA Unspecified fall, initial encounter; Z89.511 Acquired absence of right leg below knee; E11.9 Type 2 diabetes mellitus without complications; G20 Parkinson's disease; F17.200 Nicotine dependence, unspecified, uncomplicated; Z91.013 Allergy to seafood; Z88.0 Allergy status to penicillin; Z91.030 Bee allergy status; Z88.5 Allergy status to narcotic agent; Z79.899 Other long term (current) drug therapy; Z79.4 Long term (current) use of insulin
CPT/HCPCS: 73560; 85025; 85610; 99283-25

== ENCOUNTER 2021-03-07 11:17 | Emergency (ER) | payer OTHER ==
[~2021-03-07] VITALS: Ht 177.8 cm; Wt 88.6 kg
[~2021-03-07 11:17] MED LIST changes: +ATORVASTATIN CA80 MG PO; +ENOXAPARIN100 MG/1 M SUB-Q; +OXYCODONE HCL5 MG PO; +PRAZOSIN HCL5 MG PO
--- OUTSIDE RECORDS SUMMARY | 2021-03-07 11:20 | XMS ---
PreManage Notification: MARGARITA LENTZ Security Pipeline Maintenance Supervisor Events No recent Security Events currently on file CRITERIA MET - [facility] - [facility] in 30 Days [facility] Whit Rosas Detasseler/Explosive Operator Supervisor 02/06/2021-Current PHONE: [phone] KIRSTY RICH Physician Automatic Embroidery Machine Tender 11/23/2019-Current PHONE: Unknown [facility] 08/23/2020-Current PHONE: [phone] Hakeem has no Care Guidelines for this patient. Care History Medical/Surgical 08/27/2020 [facility] - W CONTACTED PATIENT- PATIENT WAS WITH HIS [facility] - PATIENT IS SOUNDING SHORT OF BREATH AND COUGHING ALOT- CHW CONCERNED FOR PATIENT AND DISCUSSED AN APT WITH PCP PATIENT STATED HE HAS AN APT WITH DR JAVED ON Thursday08/29/20 AT 3:20PM. THAT IS THE EARLIEST APT CONFIRMED WITH [facility]- PATIENT WAS REFERRED TO URGENT CARE AND OR ER IF SYMPTOMS PROGRESS. - PATIENT FRIEND IS GOING TO TISSUE SPECIALIST MEDICATIONS FROM [facility] TODAY. - PATIENT IS AWARE OF THE MEDICAL TRANSPORT NUMBER AND USES IT WHEN HE NEEDS TRANSPORT TO APTS. E.D. VISIT COUNT (12 MO.) [address] TOTAL 10 NOTE: Visits indicate total known visits. ED/C VISIT TRACKING (12 MO.) 03/07/2021 11:17 ROSE Smith [place] TYPE: Emergency COMPLAINT: - DIFFICULTY BREATHING 02/07/2021 14:25 RO[facility] [place] TYPE: Emergency COMPLAINT: - FALL, R LEG PAIN DIAGNOSES: - Allergy status to penicillin - Acquired absence of right leg below knee - salvage determiner (current) use of insulin - Encounter for examination and observation following other accident - Nicotine dependence, unspecified, uncomplicated - Parkinson's disease - Allergy to seafood - Type 2 diabetes mellitus without complications - Other care home (current) drug therapy - Allergy status to narcotic agent - Bee allergy status - Unspecified fall, initial encounter 01/23/2021 11:40 ROSE Smith [place] TYPE: Emergency COMPLAINT: - BLOOD PRESSURE PROBLEM DIAGNOSES: - Allergy status to narcotic agent - Allergy to seafood - intermediate (current) use of insulin - Bee allergy status - Nicotine dependence, unspecified, uncomplicated - Chest pain, unspecified - Saddle embolus of pulmonary artery without acute cor pulmonale - Allergy status to penicillin - Type 2 diabetes mellitus with hyperglycemia - Parkinson's disease - Other care home (current) drug therapy 01/10/2021 18:39 RO[facility] Smith [place] TYPE: Emergency COMPLAINT: - RT FOOT PAIN/NO INJ DIAGNOSES: - Allergy status to penicillin - Pain in right foot - Type 2 diabetes mellitus with diabetic neuropathy, unspecified - Allergy status to narcotic agent - intermediate (current) use of insulin - Type 2 diabetes mellitus with diabetic peripheral angiopathy without gangrene - Other care home (current) drug therapy - Nicotine dependence, unspecified, uncomplicated 08/26/2020 21:18 ROSE Garcia TYPE: Emergency COMPLAINT: - SOB (RELEASED FROM [facility] BLOOD CLOTS 08/25) DIAGNOSES: - Bee allergy status - Parkinson's disease - salvage determiner (current) use of insulin - Allergy status to penicillin - Chest pain, unspecified - Nicotine dependence, unspecified, uncomplicated - Other truck terminal manager (current) drug therapy - Constipation, unspecified - Other pulmonary embolism without acute cor pulmonale - Type 2 diabetes mellitus without complications - Allergy status to narcotic agent 08/22/2020 13:36 [facility] TYPE: Emergency DIAGNOSES: - Acute respiratory failure with hypoxia - Other pulmonary embolism without acute cor pulmonale - Shortness of Breath 08/22/2020 05:50 ROSE Smith [place] TYPE: Emergency COMPLAINT: - SOB,CHEST PAIN DIAGNOSES: - Nicotine dependence, unspecified, uncomplicated - Type 2 diabetes mellitus without complications - Chest pain, unspecified - Allergy status to penicillin - Other care home (current) drug therapy - Bee allergy status - Parkinson's disease - intermediate (current) use of insulin - Allergy status [...] - Cellulitis of right toe - Other truck terminal manager (current) drug therapy - Allergy status to narcotic agent 05/17/2020 16:24 ROSE Smith [place] TYPE: Emergency COMPLAINT: - RIGHT LEG PAIN DIAGNOSES: - Allergy status to penicillin - Other truck terminal manager (current) drug therapy - Parkinson's disease - Type 2 diabetes mellitus without complications - Bee allergy status - Allergy status to narcotic agent - Pain in right ankle and joints of right foot - salvage determiner (current) use of insulin - Bipolar disorder, unspecified - Allergy status to narcotic agent - Nicotine dependence, unspecified, uncomplicated - intermediate (current) use of aspirin 04/25/2020 09:28 ROSE Smith [place] TYPE: Emergency COMPLAINT: - FOOT/ANKLE PAIN DIAGNOSES: - Allergy status to penicillin - Unspecified sprain of right foot, initial encounter - Other care home (current) drug therapy - Other and unspecified [...] INPATIENT VISIT TRACKING (12 MO.) 01/23/2021 23:03 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
--- NOTE | 2021-03-07 21:46 | EKG ---
[facility] [address] [facility] [place] [address] Signed Sinus tachycardia Otherwise normal ECG When compared with ECG of 23-JAN-2021 12:15, Incomplete right bundle branch block is no longer present Confirmed by MERA STANLEY MD ([id number]) on 03/07/2021 9:46:31 PM Electronically Signed By: MERA STANLEY MD 03/07/21 2146 PATIENT NAME: MARGARITA LENTZ JR Electrocardiogram DATE OF : 61 PHYSICIAN: MERA STANLEY MD REPORT #: [id number] REPORT IS CONFIDENTIAL AND NOT TO BE RELEASED WITHOUT AUTHORIZATION
== END 2021-03-07 16:11 | disposition home or self-care (01) ==
LOC: ED 11:17
DX: I26.99 Other pulmonary embolism without acute cor pulmonale (principal); Z20.822 Contact with and (suspected) exposure to COVID-19; F41.9 Anxiety disorder, unspecified; E11.9 Type 2 diabetes mellitus without complications; G20 Parkinson's disease; F17.200 Nicotine dependence, unspecified, uncomplicated; Z88.0 Allergy status to penicillin; Z88.8 Allergy status to other drugs, medicaments and biological substances; Z88.5 Allergy status to narcotic agent; Z91.013 Allergy to seafood; Z79.899 Other long term (current) drug therapy; Z79.4 Long term (current) use of insulin
CPT/HCPCS: 36600; 71045; 71260; 80053; 81001; 82375; 82803; 83605; 83735; 84484; 85025; 85610; 85730; 87088; 93005; 93010; 94640; 99285-25; C9803; J1650; J2060; J7030; Q9967; U0003

== ENCOUNTER 2021-03-10 14:42 | Emergency (ER) | payer OTHER ==
[~2021-03-10] VITALS: Ht 177.8 cm; Wt 88.6 kg
--- OUTSIDE RECORDS SUMMARY | 2021-03-10 14:46 | XMS ---
PreManage Notification: MARGARITA LENTZ Security Life Scientists Events No recent Security Events currently on file CRITERIA MET - [facility] - [facility] - 2 Visits in 30 Days CARE PROVIDERS Whit Rosas Music Historian/Middle School Football Coach 02/06/2021-Current PHONE: [phone] KIRSTY RICH Physician Interior Assemblies Installer 11/23/2019-Current PHONE: Unknown [facility] 08/23/2020-Current PHONE: [phone] Hakeem has no Care Guidelines for this patient. Care History Medical/Surgical 08/27/2020 [facility] - W CONTACTED PATIENT- PATIENT WAS WITH HIS FRIEND WHO IS [facility]ISITING [facility] GETTING BREAKFAST. - PATIENT IS SOUNDING SHORT OF BREATH AND COUGHING ALOT- CHW CONCERNED FOR PATIENT AND DISCUSSED AN APT WITH PCP PATIENT STATED HE HAS AN APT WITH DR JAVED ON Thursday08/29/20 AT 3:20PM. THAT IS THE EARLIEST APT CONFIRMED WITH [facility]- PATIENT WAS REFERRED TO URGENT CARE AND OR ER IF SYMPTOMS PROGRESS. - PATIENT FRIEND IS GOING TO BUS AIDE MEDICATIONS FROM [facility] TODAY. - PATIENT IS AWARE OF THE MEDICAL TRANSPORT NUMBER AND USES IT WHEN HE NEEDS TRANSPORT TO APTS. E.D. VISIT COUNT (12 MO.) [address] TOTAL 11 NOTE: Visits indicate total known visits. ED/C VISIT TRACKING (12 MO.) 03/10/2021 14:[address] [facility] [place] TYPE: Emergency COMPLAINT: - ABDOMINAL PAIN,BLOOD IN URINE 03/07/2021 11:17 [facility] [place] TYPE: Emergency COMPLAINT: - DIFFICULTY BREATHING 02/07/2021 14:[address] [facility] [place] TYPE: Emergency COMPLAINT: - FALL, R LEG PAIN DIAGNOSES: - Allergy status to penicillin - Acquired absence of right leg below knee - MCC (current) use of insulin - Encounter for examination and observation following other accident - Nicotine dependence, unspecified, uncomplicated - Parkinson's disease - Allergy to seafood - Type 2 diabetes mellitus without complications - Other roll contour grinder (current) drug therapy - Allergy status to narcotic agent - Bee allergy status - Unspecified fall, initial encounter 01/23/2021 11:40 [facility] [place] TYPE: Emergency COMPLAINT: - BLOOD PRESSURE PROBLEM DIAGNOSES: - Allergy status to narcotic agent - Allergy to seafood - MCC (current) use of insulin - Bee allergy status - Nicotine dependence, unspecified, uncomplicated - Chest pain, unspecified - Saddle embolus of pulmonary artery without acute cor pulmonale - Allergy status to penicillin - Type 2 diabetes mellitus with hyperglycemia - Parkinson's disease - Other roll contour grinder (current) drug therapy 01/10/2021 18:39 [facility] [place] TYPE: Emergency COMPLAINT: - RT FOOT PAIN/NO INJ DIAGNOSES: - Allergy status to penicillin - Pain in right foot - Type 2 diabetes mellitus with diabetic neuropathy, unspecified - Allergy status to narcotic agent - MCC (current) use of insulin - Type 2 diabetes mellitus with diabetic peripheral angiopathy without gangrene - Other roll contour grinder (current) drug therapy - Nicotine dependence, unspecified, uncomplicated 08/26/2020 21:18 [facility] [place] TYPE: Emergency COMPLAINT: - SOB (RELEASED FROM [facility] BLOOD CLOTS 08/25) DIAGNOSES: - Bee allergy status - Parkinson's disease - MCC (current) use of insulin - Allergy status to penicillin - Chest pain, unspecified - Nicotine dependence, unspecified, uncomplicated - Other correction (current) drug therapy - Constipation, unspecified - Other pulmonary embolism without acute cor pulmonale - Type 2 diabetes mellitus without complications - Allergy status to narcotic agent 08/22/2020 13:36 [facility] TYPE: Emergency DIAGNOSES: - Acute respiratory failure with hypoxia - Other pulmonary embolism without acute cor pulmonale - Shortness of Breath 08/22/2020 05:50 [facility] TYPE: Emergency COMPLAINT: - SOB,CHEST PAIN DIAGNOSES: - Nicotine dependence, unspecified, uncomplicated - Type 2 diabetes mellitus without complications - Chest pain, unspecified - Allergy status to penicillin - Other correction (current) drug therapy - Bee allergy status - Parkinson's disease - MCC (current) use of insulin - Allergy status to narcotic agent - Other pulmonary embolism without acute cor pulmonale 06/05/2020 12:54 [facility] TYPE: Emergency COMPLAINT: - R FOOT TOE PAIN DIAGNOSES: - Allergy status to penicillin - Pain in right foot - Nicotine dependence, unspecified, uncomplicated - Type 2 diabetes mellitus without complications - Allergy status to narcotic agent - Bee allergy status - Cellulitis of right toe - Other correction (current) drug therapy - Allergy status to narcotic agent 05/17/2020 16:24 [facility] [place] TYPE: Emergency COMPLAINT: - RIGHT LEG PAIN DIAGNOSES: - Allergy status to penicillin - Other correction (current) drug therapy - Parkinson's disease - Type 2 diabetes mellitus without complications - Bee allergy status - Allergy status to narcotic agent - Pain in right ankle and joints of right foot - MCC (current) use of insulin - Bipolar disorder, unspecified - Allergy status to narcotic agent - Nicotine dependence, unspecified, uncomplicated - project manager retail (current) use of aspirin 04/25/2020 09:28 [facility] [place] TYPE: Emergency COMPLAINT: - FOOT/ANKLE PAIN DIAGNOSES: - Allergy status to penicillin - Unspecified sprain of right foot, initial encounter - Other correction (current) drug therapy - Other and unspecified overexertion or strenuous movements or postures, initial encounter - Parkinson's disease - Allergy status to narcotic agent - Type 2 diabetes mellitus without complications - Allergy status to narcotic agent - Bee allergy status - MCC (current) use of insulin - Bipolar disorder, unspecified - project manager retail (current) use of aspirin INPATIENT VISIT TRACKING (12 MO.) 01/23/2021 [facility] [facility] 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
== END 2021-03-10 18:15 | disposition left against medical advice (07) ==
LOC: ED 14:42
PROC: 4A0D7LZ Measurement of Urinary Volume, Via Natural or Artificial Opening (ICD-10-PCS; principal; 2021-03-10)
DX: R30.0 Dysuria (principal); M54.9 Dorsalgia, unspecified; E86.0 Dehydration; E11.9 Type 2 diabetes mellitus without complications; G20 Parkinson's disease; F17.200 Nicotine dependence, unspecified, uncomplicated; Z88.0 Allergy status to penicillin; Z91.013 Allergy to seafood; Z88.5 Allergy status to narcotic agent; Z91.041 Radiographic dye allergy status; Z91.038 Other insect allergy status; Z79.4 Long term (current) use of insulin; Z79.899 Other long term (current) drug therapy
CPT/HCPCS: 51798; 80053; 81001; 85025; 99284-25

== ENCOUNTER 2021-03-11 22:45 | Emergency (ER) | payer OTHER ==
[~2021-03-11] VITALS: Ht 177.8 cm; Wt 88.6 kg
--- OUTSIDE RECORDS SUMMARY | 2021-03-11 22:48 | XMS ---
PreManage Notification: MARGARITA LENTZ Security Superintendent Logging Events No recent Security Events currently on file CRITERIA MET - [facility] - 2 Visits in 30 Days - PDMP - 6 ED Visits in 6 Months CARE PROVIDERS Whit Rosas Degreasing Solution Mixer/Chute Operator 02/06/2021-Current PHONE: [phone] KIRSTY RICH Physician Byproducts Extractor 11/23/2019-Current PHONE: Unknown [facility] 08/23/2020-Current PHONE: [phone] Hakeem has no Care Guidelines for this patient. Care History Medical/Surgical 08/27/2020 [facility] - W CONTACTED PATIENT- PATIENT WAS WITH HIS FRIEND WHO IS VISITING FROM [facility] GETTING BREAKFAST. - PATIENT IS SOUNDING SHORT OF BREATH AND COUGHING ALOT- CHW CONCERNED FOR PATIENT AND DISCUSSED AN APT WITH PCP PATIENT STATED HE HAS AN APT WITH DR JAVED ON Thursday08/29/20 AT 3:20PM. THAT IS THE EARLIEST APT CONFIRMED WITH [facility]- PATIENT WAS REFERRED TO URGENT CARE AND OR ER IF SYMPTOMS PROGRESS. - PATIENT FRIEND IS GOING TO FISH NET STRINGER MEDICATIONS FROM [facility] TODAY. - PATIENT IS AWARE OF THE MEDICAL TRANSPORT NUMBER AND USES IT WHEN HE NEEDS TRANSPORT TO APTS. E.D. VISIT COUNT (12 MO.) [address] TOTAL 12 NOTE: Visits indicate total known visits. ED/UCC VISIT TRACKING (12 MO.) 03/11/2021 22:45 [facility] [place] TYPE: Emergency COMPLAINT: - RT LEG WOUND 03/10/2021 14:43 [facility] [place] TYPE: Emergency COMPLAINT: - ABDOMINAL PAIN,BLOOD IN URINE 03/07/2021 11:17 [facility] [place] TYPE: Emergency COMPLAINT: - DIFFICULTY BREATHING DIAGNOSES: - Nicotine dependence, unspecified, uncomplicated - custodial (current) use of insulin - Allergy status to penicillin - Allergy status to other drugs, medicaments and biological substances - Shortness of breath - Parkinson's disease - Other pulmonary embolism without acute cor pulmonale - Anxiety disorder, unspecified - Allergy to seafood - Type 2 diabetes mellitus without complications - Other assistant terminal manager (current) drug therapy - Allergy status to narcotic agent 02/07/2021 14:25 [facility] [place] TYPE: Emergency COMPLAINT: - FALL, R LEG PAIN DIAGNOSES: - Allergy status to penicillin - Acquired absence of right leg below knee - long term care social worker (current) use of insulin - Encounter for examination and observation following other accident - Nicotine dependence, unspecified, uncomplicated - Parkinson's disease - Allergy to seafood - Type 2 diabetes mellitus without complications - Other assistant terminal manager (current) drug therapy - Allergy status to narcotic agent - Bee allergy status - Unspecified fall, initial encounter 01/23/2021 11:40 [facility] [place] TYPE: Emergency COMPLAINT: - BLOOD PRESSURE PROBLEM DIAGNOSES: - Allergy status to narcotic agent - Allergy to seafood - long term care social worker (current) use of insulin - Bee allergy status - Nicotine dependence, unspecified, uncomplicated - Chest pain, unspecified - Saddle embolus of pulmonary artery without acute cor pulmonale - Allergy status to penicillin - Type 2 diabetes mellitus with hyperglycemia - Parkinson's disease - Other fci (current) drug therapy 01/10/2021 18:39 [facility] [place] TYPE: Emergency COMPLAINT: - RT FOOT PAIN/NO INJ DIAGNOSES: - Allergy status to penicillin - Pain in right foot - Type 2 diabetes mellitus with diabetic neuropathy, unspecified - Allergy status to narcotic agent - long term care social worker (current) use of insulin - Type 2 diabetes mellitus with diabetic peripheral angiopathy without gangrene - Other assistant terminal manager (current) drug therapy - Nicotine dependence, unspecified, uncomplicated 08/26/2020 21:18 [facility] [place] TYPE: Emergency COMPLAINT: - SOB (RELEASED FROM [facility] BLOOD CLOTS 08/25) DIAGNOSES: - Bee allergy status - Parkinson's disease - custodial (current) use of insulin - Allergy status to penicillin - Chest pain, unspecified - Nicotine dependence, unspecified, uncomplicated - Other fci (current) drug therapy - Constipation, unspecified - Other pulmonary embolism without acute cor pulmonale - Type 2 diabetes mellitus without complications - Allergy status to narcotic agent 08/22/2020 13:36 [facility] TYPE: Emergency DIAGNOSES: - Acute respiratory failure with hypoxia - Other pulmonary embolism without acute cor pulmonale - Shortness of Breath 08/22/2020 05:50 [facility] [place] TYPE: Emergency COMPLAINT: - SOB,CHEST PAIN DIAGNOSES: - Nicotine dependence, unspecified, uncomplicated - Type 2 diabetes mellitus without complications - Chest pain, unspecified - Allergy status to penicillin - Other fci (current) drug therapy - Bee allergy status - Parkinson's disease - long term care social worker (current) use of insulin - Allergy status [...] - Cellulitis of right toe - Other assistant terminal manager (current) drug therapy - Allergy status to narcotic agent 05/17/2020 16:24 [facility] [place] TYPE: Emergency COMPLAINT: - RIGHT LEG PAIN DIAGNOSES: - Allergy status to penicillin - Other fci (current) drug therapy - Parkinson's disease - Type 2 diabetes mellitus without complications - Bee allergy status - Allergy status to narcotic agent - Pain in right ankle and joints of right foot - long term care social worker (current) use of insulin - Bipolar disorder, unspecified - Allergy status to narcotic agent - Nicotine dependence, unspecified, uncomplicated - long term care social worker (current) use of aspirin 04/25/2020 09:28 [facility] [place] TYPE: Emergency COMPLAINT: - FOOT/ANKLE PAIN DIAGNOSES: - Allergy status to penicillin - Unspecified sprain of right foot, initial encounter - Other assistant terminal manager (current) drug therapy - Other and unspecified overexertion or strenuous movements or postures, initial encounter - Parkinson's disease - Allergy status to narcotic agent - Type 2 diabetes mellitus without complications - Allergy status to narcotic agent - Bee allergy status - custodial (current) use of insulin - Bipolar disorder, unspecified - custodial (current) use of aspirin INPATIENT VISIT TRACKING (12 MO.) 01/23/2021 23[facility] [place] TYPE: Intermediate Care DIAGNOSES: - Gangrene, not elsewhere classified - Atherosclerosis of [place] arteries of right leg with ulceration of other part of foot - Other pulmonary embolism without acute cor pulmonale - Atheroembolism of unspecified lower extremity 08/22/2020 13:36 [facility] TYPE: Internal Medicine DIAGNOSES: - Encounter for screening for malignant neoplasm of colon - Acute respiratory failure with hypoxia - Other pulmonary embolism without acute cor pulmonale [id number]
== END 2021-03-12 06:50 | disposition short-term general hospital (02) ==
LOC: ED 22:45
DX: T81.44XA Sepsis following a procedure, initial encounter (principal); A41.9 Sepsis, unspecified organism; E11.10 Type 2 diabetes mellitus with ketoacidosis without coma; Z20.822 Contact with and (suspected) exposure to COVID-19; F17.200 Nicotine dependence, unspecified, uncomplicated; Z91.013 Allergy to seafood; Z88.0 Allergy status to penicillin; Z88.5 Allergy status to narcotic agent; Z91.041 Radiographic dye allergy status; Z91.038 Other insect allergy status; Z79.4 Long term (current) use of insulin
CPT/HCPCS: 80048; 80053; 83605; 85025; 96374; 96375; 96376; 99285-25; C9803; J1815; J3490; J7030; J7040; J7121; U0003

== ENCOUNTER 2021-05-12 16:38 | Emergency (ER) | payer OTHER ==
[~2021-05-12] VITALS: Ht 177.8 cm; Wt 84.0 kg
--- OUTSIDE RECORDS SUMMARY | 2021-05-12 16:40 | XMS ---
PreManage Notification: MARGARITA LENTZ Security Plate Fitter Events 1 event(s) in the past 18 months Most recent security events: Elopement at [facility] 03/10/2021 14:43 - Other Details: PATIENT LEFT AMA. CRITERIA MET - PDMP - [facility] - Has Care Guidelines - 6 ED Visits in 6 Months CARE PROVIDERS Whit Rosas Exhibit Designer/Improvement Director 02/06/2021-Current PHONE: [phone] KIRSTY RICH Physician 11/23/2019-Current PHONE: Unknown Jory Rico Exhibit Designer/Improvement Director 04/05/2021-Current PHONE: [phone] SARAHI JAVED 08/23/2020-Current PHONE: [phone] Guidelines [facility] Date: 03/18/2021 Care Coordination: Engaged in Mental Health Serivces through [facility].\T\nbsp;Please contact [facility] with mental health concerns.\T\nbsp; [place]y [place]: [phone]\T\nbsp; [place]: [phone] Crisis: [phone] Care History Medical/Surgical 08/27/2020 [facility] - CHW CONTACTED PATIENT- PATIENT WAS WITH HIS FRIEND WHO IS [facility]ISITING [facility] GETTING BREAKFAST. - PATIENT IS SOUNDING SHORT OF BREATH AND COUGHING ALOT- CHW CONCERNED FOR PATIENT AND DISCUSSED AN APT WITH PCP PATIENT STATED HE HAS AN APT WITH DR JAVED ON Thursday08/29/20 AT 3:20PM. THAT IS THE EARLIEST APT CONFIRMED WITH [facility]- PATIENT WAS REFERRED TO URGENT CARE AND OR ER IF SYMPTOMS PROGRESS. - PATIENT FRIEND IS GOING TO CLINICAL INFORMATICS SPEC MEDICATIONS FROM [facility] TODAY. - PATIENT IS AWARE OF THE MEDICAL TRANSPORT NUMBER AND USES IT WHEN HE NEEDS TRANSPORT TO APTS. E.D. VISIT COUNT (12 MO.) [address] TOTAL 12 NOTE: Visits indicate total known visits. ED/UCC VISIT TRACKING (12 MO.) 05/12/2021 16:[address] [facility] [place] TYPE: Emergency COMPLAINT: - RT LEG SWELLING 03/11/2021 22:45 [facility] [place] TYPE: Emergency COMPLAINT: - RT LEG WOUND DIAGNOSES: - Sepsis, unspecified organism - Nicotine dependence, unspecified, uncomplicated - Allergy to seafood - Sepsis following a procedure, initial encounter - Allergy status to penicillin - Radiographic dye allergy status - manager long term care (current) use of insulin - Type 2 diabetes mellitus with ketoacidosis without coma - Other insect allergy status - Allergy status to narcotic agent 03/10/2021 14:43 [facility] [place] TYPE: Emergency COMPLAINT: - ABDOMINAL PAIN,BLOOD IN URINE DIAGNOSES: - Type 2 diabetes mellitus without complications - Other assisted (current) drug therapy - Dysuria - Nicotine dependence, unspecified, uncomplicated - Allergy status to narcotic agent - Dehydration - Other insect allergy status - Allergy status to penicillin - residential (current) use of insulin - Allergy to seafood - Parkinson's disease - Radiographic dye allergy status - Dorsalgia, unspecified 03/07/2021 11:17 [facility] [place] TYPE: Emergency COMPLAINT: - DIFFICULTY BREATHING DIAGNOSES: - Nicotine dependence, unspecified, uncomplicated - manager long term care (current) use of insulin - Allergy status to penicillin - Allergy status to other drugs, medicaments and biological substances - Shortness of breath - Parkinson's disease - Other pulmonary embolism without acute cor pulmonale - Anxiety disorder, unspecified - Allergy to seafood - Type 2 diabetes mellitus without complications - Other buttermaker helper (current) drug therapy - Allergy status to narcotic agent 02/07/2021 14:25 [facility] [place] TYPE: Emergency COMPLAINT: - FALL, R LEG PAIN DIAGNOSES: - Allergy status to penicillin - Acquired absence of right leg below knee - manager long term care (current) use of insulin - Encounter for examination and observation following other accident - Nicotine dependence, unspecified, uncomplicated - Parkinson's disease - Allergy to seafood - Type 2 diabetes mellitus without complications - Other assisted (current) drug therapy - Allergy status to narcotic agent - Bee allergy status - Unspecified fall, initial encounter 01/23/2021 11:40 [facility] [place] TYPE: Emergency COMPLAINT: - BLOOD PRESSURE PROBLEM DIAGNOSES: - Allergy status to narcotic agent - Allergy to seafood - residential (current) use of insulin - Bee allergy status - Nicotine dependence, unspecified, uncomplicated - Chest pain, unspecified - Saddle embolus of pulmonary artery without acute cor pulmonale - Allergy status to penicillin - Type 2 diabetes mellitus with hyperglycemia - Parkinson's disease - Other buttermaker helper (current) drug therapy 01/10/2021 18:39 [facility] [place] TYPE: Emergency COMPLAINT: - RT FOOT PAIN/NO INJ DIAGNOSES: - Allergy status to penicillin - Pain in right foot - Type 2 diabetes mellitus with diabetic neuropathy, unspecified - Allergy status to narcotic agent - residential (current) use of insulin - Type 2 diabetes mellitus with diabetic peripheral angiopathy without gangrene - Other assisted (current) drug therapy - Nicotine dependence, unspecified, uncomplicated 08/26/2020 21:18 [facility] [place] TYPE: Emergency COMPLAINT: - SOB (RELEASED FROM [facility] BLOOD CLOTS 08/25) DIAGNOSES: - Bee allergy status - Parkinson's disease - residential (current) use of insulin - Allergy status to penicillin - Chest pain, unspecified - Nicotine dependence, unspecified, uncomplicated - Other buttermaker helper (current) drug therapy - Constipation, unspecified - Other pulmonary embolism without acute cor pulmonale - Type 2 diabetes mellitus without complications - Allergy status to narcotic agent 08/22/2020 13:36 [facility] TYPE: Emergency DIAGNOSES: - Acute respiratory failure with hypoxia - Other pulmonary embolism without acute cor pulmonale - Shortness of Breath 08/22/2020 05:50 [facility] [place] TYPE: Emergency COMPLAINT: - SOB,CHEST PAIN DIAGNOSES: - Nicotine dependence, unspecified, uncomplicated - Type 2 diabetes mellitus without complications - Chest pain, unspecified - Allergy status to penicillin - Other assisted (current) drug therapy - Bee allergy status - Parkinson's disease - manager long term care (current) use of insulin - Allergy status [...] - Cellulitis of right toe - Other buttermaker helper (current) drug therapy - Allergy status to narcotic agent 05/17/2020 16:24 [facility] [place] TYPE: Emergency COMPLAINT: - RIGHT LEG PAIN DIAGNOSES: - Allergy status to penicillin - Other assisted (current) drug therapy - Parkinson's disease - Type 2 diabetes mellitus without complications - Bee allergy status - Allergy status to narcotic agent - Pain in right ankle and joints of right foot - manager long term care (current) use of insulin - Bipolar disorder, unspecified - Allergy status to narcotic agent - Nicotine dependence, unspecified, uncomplicated - manager long term care (current) use of aspirin INPATIENT VISIT TRACKING (12 MO.) 03/12/2021 07:38 [facility] [place] TYPE: Medical Surgical COMPLAINT: - SEPSIS DIAGNOSES: - SEPSIS 01/23/2021 23:03 [facility] DIAGNOSES: - Gangrene, not elsewhere classified - 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
[2021-05-12] MEDS ORDERED: DOXYCYCLINE HY100 MG PO (22:47)
[2021-05-12] MEDS ORDERED: HYDROCODON-ACE1 EA10 PO (22:47)
== END 2021-05-12 23:30 | disposition home or self-care (01) ==
LOC: ED 16:38
DX: T87.43 Infection of amputation stump, right lower extremity (principal); E11.9 Type 2 diabetes mellitus without complications; G20 Parkinson's disease; F17.200 Nicotine dependence, unspecified, uncomplicated; Z88.0 Allergy status to penicillin; Z88.5 Allergy status to narcotic agent; Z91.030 Bee allergy status; Z91.013 Allergy to seafood; Z79.4 Long term (current) use of insulin; Z79.899 Other long term (current) drug therapy
CPT/HCPCS: 71045; 80053; 83605; 83880; 85025; 96365; 96375; 99284-25; J1200; J3370

== ENCOUNTER 2021-05-18 16:59 | Emergency (ER) | payer OTHER ==
[~2021-05-18] VITALS: Ht 177.8 cm; Wt 109.0 kg
[~2021-05-18 16:59] MED LIST changes: +DOXYCYCLINE HY100 MG PO
--- OUTSIDE RECORDS SUMMARY | 2021-05-18 17:02 | XMS ---
PreManage Notification: MARGARITA LENTZ Security Video Rental Clerk Events 1 event(s) in the past 18 months Most recent security events: Elopement at [facility] 03/10/2021 14:43 - Other Details: PATIENT LEFT AMA. CRITERIA MET - [facility] - Has Care Guidelines - [facility] - 2 Visits in 30 Days - 6 ED Visits in 6 Months CARE PROVIDERS Whit Rosas Icing Maker/Cytogenetics Laboratory Manager 02/06/2021-Current PHONE: [phone] KIRSTY RICH 11/23/2019-Current PHONE: Unknown Jory Rico Icing Maker/Cytogenetics Laboratory Manager 04/05/2021-Current PHONE: [phone] SARAHI JAVED 08/23/2020-Current PHONE: [phone] Guidelines Source: [facility] Guidelines Date: 03/18/2021 Care Coordination: Engaged in Mental Health Serivces through [facility].\T\nbsp;Please contact [facility] with mental health concerns.\T\nbsp; Claribel/Marky Odell: \T\nbsp; Martha: [phone] Crisis: [phone] Care History Medical/Surgical 08/27/2020 [facility] - CHW CONTACTED PATIENT- PATIENT WAS WITH HIS FRIEND WHO IS VISITING FROM [place] GET[facility]AKFA[facility]. - PATIENT IS SOUNDING SHORT OF BREATH AND COUGHING ALOT- CHW CONCERNED FOR PATIENT AND DISCUSSED AN APT WITH PCP PATIENT STATED HE HAS AN APT WITH DR JAVED ON Thursday08/29/20 AT 3:20PM. THAT IS THE EARLIEST APT CONFIRMED WITH [facility]- PATIENT WAS REFERRED TO URGENT CARE AND OR ER IF SYMPTOMS PROGRESS. - PATIENT FRIEND IS GOING TO CONSTRUCTION ELECTRICIAN MEDICATIONS FROM [facility] TODAY. - PATIENT IS AWARE OF THE MEDICAL TRANSPORT NUMBER AND USES IT WHEN HE NEEDS TRANSPORT TO APTS. E.D. VISIT COUNT (12 MO.) [address] [place] [address] TOTAL 12 NOTE: Visits indicate total known visits. ED/UCC VISIT TRACKING (12 MO.) 05/18/2021 16:[facility] [place] TYPE: Emergency COMPLAINT: - ABD PAIN 05/12/2021 16:39 [facility] [place] TYPE: Emergency COMPLAINT: - RT LEG SWELLING DIAGNOSES: - Bee allergy status - Type 2 diabetes mellitus without complications - Nicotine dependence, unspecified, uncomplicated - Infection of amputation stump, right lower extremity - Other prison (current) drug therapy - Allergy to seafood - termite renewal inspector (current) use of insulin - Allergy status to narcotic agent - Parkinson's disease - Allergy status to penicillin 03/11/2021 22:45 [facility] [place] TYPE: Emergency COMPLAINT: - RT LEG WOUND DIAGNOSES: - Sepsis, unspecified organism - Nicotine dependence, unspecified, uncomplicated - Allergy to seafood - Sepsis following a procedure, initial encounter - Allergy status to penicillin - Radiographic dye allergy status - termite renewal inspector (current) use of insulin - Type 2 diabetes mellitus with ketoacidosis without coma - Other insect allergy status - Allergy status to narcotic agent 03/10/2021 14:43 [facility] [place] TYPE: Emergency COMPLAINT: - ABDOMINAL PAIN,BLOOD IN URINE DIAGNOSES: - Type 2 diabetes mellitus without complications - Other prison (current) drug therapy - Dysuria - Nicotine dependence, unspecified, uncomplicated - Allergy status to narcotic agent - Dehydration - Other insect allergy status - Allergy status to penicillin - longterm (current) use of insulin - Allergy to seafood - Parkinson's disease - Radiographic dye allergy status - Dorsalgia, unspecified 03/07/2021 11:17 [facility] [place] TYPE: Emergency COMPLAINT: - DIFFICULTY BREATHING DIAGNOSES: - Nicotine dependence, unspecified, uncomplicated - longterm (current) use of insulin - Allergy status to penicillin - Allergy status to other drugs, medicaments and biological substances - Shortness of breath - Parkinson's disease - Other pulmonary embolism without acute cor pulmonale - Anxiety disorder, unspecified - Allergy to seafood - Type 2 diabetes mellitus without complications - Other prison (current) drug therapy - Allergy status to narcotic agent 02/07/2021 14:25 [facility] [place] TYPE: Emergency COMPLAINT: - FALL, R LEG PAIN DIAGNOSES: - Allergy status to penicillin - Acquired absence of right leg below knee - longterm (current) use of insulin - Encounter for examination and observation following other accident - Nicotine dependence, unspecified, uncomplicated - Parkinson's disease - Allergy to seafood - Type 2 diabetes mellitus without complications - Other prison (current) drug therapy - Allergy status to narcotic agent - Bee allergy status - Unspecified fall, initial encounter 01/23/2021 11:40 [facility] [place] TYPE: Emergency COMPLAINT: - BLOOD PRESSURE PROBLEM DIAGNOSES: - Allergy status to narcotic agent - Allergy to seafood - termite renewal inspector (current) use of insulin - Bee allergy status - Nicotine dependence, unspecified, uncomplicated - Chest pain, unspecified - Saddle embolus of pulmonary artery without acute cor pulmonale - Allergy status to penicillin - Type 2 diabetes mellitus with hyperglycemia - Parkinson's disease - Other prison (current) drug therapy 01/10/2021 18:39 [facility] [place] TYPE: Emergency COMPLAINT: - RT FOOT PAIN/NO INJ DIAGNOSES: - Allergy status to penicillin - Pain in right foot - Type 2 diabetes mellitus with diabetic neuropathy, unspecified - Allergy status to narcotic agent - termite renewal inspector (current) use of insulin - Type 2 diabetes mellitus with diabetic peripheral angiopathy without gangrene - Other long term acute care registered nurse (current) drug therapy - Nicotine dependence, unspecified, uncomplicated 08/26/2020 21:18 [facility] TYPE: Emergency COMPLAINT: - SOB (RELEASED FROM [facility] BLOOD CLOTS 08/25) DIAGNOSES: - Bee allergy status - Parkinson's disease - longterm (current) use of insulin - Allergy status to penicillin - Chest pain, unspecified - Nicotine dependence, unspecified, uncomplicated - Other long term acute care registered nurse (current) drug therapy - Constipation, unspecified - Other pulmonary embolism without acute cor pulmonale - Type 2 diabetes mellitus without complications - Allergy status to narcotic agent 08/22/2020 13:36 [facility] TYPE: Emergency DIAGNOSES: - Acute respiratory failure with hypoxia - Other pulmonary embolism without acute cor pulmonale - Shortness of Breath 08/22/2020 05:50 [facility] [place] TYPE: Emergency COMPLAINT: - SOB,CHEST PAIN DIAGNOSES: - Nicotine dependence, unspecified, uncomplicated - Type 2 diabetes mellitus without complications - Chest pain, unspecified - Allergy status to penicillin - Other long term acute care registered nurse (current) drug therapy - Bee allergy status - Parkinson's disease - longterm (current) use of insulin - Allergy status [...] - Cellulitis of right toe - Other long term acute care registered nurse (current) drug therapy - Allergy status to narcotic agent INPATIENT VISIT TRACKING (12 MO.) 03/12/2021 07:38 [facility] [place] TYPE: Medical Surgical COMPLAINT: - SEPSIS DIAGNOSES: - SEPSIS 01/23/2021 23:03 [facility] TYPE: Intermediate Care DIAGNOSES: - Gangrene, not elsewhere classified - Atherosclerosis of [place] arteries of right leg with ulceration of other part of foot - Other pulmonary embolism without acute cor pulmonale - Atheroembolism of unspecified lower extremity [facility]22[facility]2020 [facility]: Internal Medicine DIAGNOSES: - Encounter for screening for malignant neoplasm of colon - Acute respiratory failure with hypoxia - Other pulmonary embolism without acute cor pulmonale [email or web address]
== END 2021-05-18 20:50 | disposition home or self-care (01) ==
LOC: ED 16:59
DX: T87.43 Infection of amputation stump, right lower extremity (principal); E11.9 Type 2 diabetes mellitus without complications; F17.200 Nicotine dependence, unspecified, uncomplicated; Z95.5 Presence of coronary angioplasty implant and graft; Z86.711 Personal history of pulmonary embolism; Z91.013 Allergy to seafood; Z88.0 Allergy status to penicillin; Z91.048 Other nonmedicinal substance allergy status; Z91.038 Other insect allergy status; Z88.5 Allergy status to narcotic agent; Z79.4 Long term (current) use of insulin; Z79.899 Other long term (current) drug therapy
CPT/HCPCS: 80053; 85025; 99283

== ENCOUNTER 2021-07-13 12:01 | Emergency (ER) | payer OTHER ==
[~2021-07-13] VITALS: Ht 177.8 cm; Wt 96.6 kg
[~2021-07-13 12:01] MED LIST changes: +BACTRIM DS TAB1 EACH PO; +CEPHALEXIN500 M1 PO; +CEPHALEXIN500 MG PO; +GABAPENTIN600 MG PO
--- OUTSIDE RECORDS SUMMARY | 2021-07-13 12:04 | XMS ---
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 CRITERIA MET - 6 ED Visits in 6 Months - [facility] - 2 Visits in 30 Days - [facility] - Has Care Guidelines - [facility] CARE PROVIDERS Whit Rosas Tribunal Member/City Detective 02/06/2021-Current PHONE: [phone] KIRSTY RICH 11/23/2019-Current PHONE: Unknown Jory Rico Tribunal Member/City Detective 06/05/2021-Current PHONE: [phone] SARAHI JAVED Family Medicine 08/23/2020-Current PHONE: [phone] Guidelines Source: [facility] Guidelines Date: 03/18/2021 Care Coordination: Engaged in Mental Health Serivces through [facility].\T\nbsp;Please contact [facility] with mental health concerns.\T\nbsp; [facility] \T\nbsp; Martha: [phone] Crisis: [phone] Care History Medical/Surgical 05/27/2021 [facility] - W IS UNABLE TO CONTACT PATIENT- PHONE NUMBER LISTED IS NO LONGER IN SERVICE. - PLEASE CONTACT CASE MANAGEMENT IF PATIENT IS SEEN IN THE ED DURING BUSINESS HOURS. 08/27/2020 [facility] - W CONTACTED PATIENT- PATIENT WAS WITH HIS FRIEND WHO IS VISITING FROM [facility] AT [facility] GETTING BREAKFAST. - PATIENT IS SOUNDING SHORT OF BREATH AND COUGHING ALOT- CHW CONCERNED FOR PATIENT AND DISCUSSED AN APT WITH PCP PATIENT STATED HE HAS AN APT WITH DR JAVED ON Thursday08/29/20 AT 3:20PM. THAT IS THE EARLIEST APT CONFIRMED WITH [facility]- PATIENT WAS REFERRED TO URGENT CARE AND OR ER IF SYMPTOMS PROGRESS. - PATIENT FRIEND IS GOING TO CYTOLOGY TECHNOLOGIST MEDICATIONS FROM [facility] TODAY. - PATIENT IS AWARE OF THE MEDICAL TRANSPORT NUMBER AND USES IT WHEN HE NEEDS TRANSPORT TO APTS. E.D. VISIT COUNT (12 MO.) 1 [facility] 13 [facility] TOTAL 14 NOTE: Visits indicate total known visits. ED/UCC VISIT TRACKING (12 MO.) 07/13/2021 12:03 [facility] [place] TYPE: Emergency COMPLAINT: - POST SURGICAL ISSUE L ELBOW 07/03/2021 06:17 [facility] [place] TYPE: Emergency COMPLAINT: - CHEST PAIN DIAGNOSES: - Non-ST elevation (NSTEMI) myocardial infarction - residential (current) use of insulin - Parkinson's disease - Other usp (current) drug therapy - Type 2 diabetes mellitus without complications - Nicotine dependence, unspecified, uncomplicated - Allergy status to penicillin - Allergy status to other drugs, medicaments and biological substances - Bee allergy status - Precordial pain - Allergy to seafood 07/02/2021 11:25 [facility] [place] TYPE: Emergency COMPLAINT: - R LEG WOUND DIAGNOSES: - Allergy status to narcotic agent - Type 2 diabetes mellitus without complications - Phlebitis and thrombophlebitis of other sites - Nicotine dependence, unspecified, uncomplicated - Other usp (current) drug therapy - Allergy to seafood - Cellulitis of right lower limb - Allergy status to penicillin - residential (current) use of insulin 05/18/2021 16:59 [facility] [place] TYPE: Emergency COMPLAINT: - ABD PAIN DIAGNOSES: - Other usp (current) drug therapy - Allergy to seafood - residential (current) use of insulin - Infection of amputation stump, right lower extremity - Type 2 diabetes mellitus without complications - Presence of coronary angioplasty implant and graft - Other nonmedicinal substance allergy status - Nicotine dependence, unspecified, uncomplicated - Allergy status to narcotic agent - Personal history of pulmonary embolism - Allergy status to penicillin - Other insect allergy status 05/12/2021 16:39 [facility] [place] TYPE: Emergency COMPLAINT: - RT LEG SWELLING DIAGNOSES: - Bee allergy status - Type 2 diabetes mellitus without complications - Nicotine dependence, unspecified, uncomplicated - Infection of amputation stump, right lower extremity - Other rodent exterminator (current) drug therapy - Allergy to seafood - residential (current) [...] - Radiographic dye allergy status - manager intermediate (current) use of insulin - Type 2 diabetes mellitus with ketoacidosis without coma - Other insect allergy status - Allergy status to narcotic agent 03/10/2021 14:43 [facility] [place] TYPE: Emergency COMPLAINT: - ABDOMINAL PAIN,BLOOD IN URINE DIAGNOSES: - Type 2 diabetes mellitus without complications - Other rodent exterminator (current) drug therapy - Dysuria - Nicotine dependence, unspecified, uncomplicated - Allergy status to narcotic agent - Dehydration - Other insect allergy status - Allergy status to penicillin - manager intermediate (current) use of insulin - Allergy to seafood - Parkinson's disease - Radiographic dye allergy status - Dorsalgia, unspecified 03/07/2021 11:17 [facility] [place] TYPE: Emergency COMPLAINT: - DIFFICULTY BREATHING DIAGNOSES: - Nicotine dependence, unspecified, uncomplicated - residential (current) use of insulin - Allergy status to penicillin - Allergy status to other drugs, medicaments and biological substances - Shortness of breath - Parkinson's disease - Other pulmonary embolism without acute cor pulmonale - Anxiety disorder, unspecified - Allergy to seafood - Type 2 diabetes mellitus without complications - Other usp (current) drug therapy - Allergy status to narcotic agent 02/07/2021 14:25 [facility] [place] TYPE: Emergency COMPLAINT: - FALL, R LEG PAIN DIAGNOSES: - Allergy status to penicillin - Acquired absence of right leg below knee - manager intermediate (current) use of insulin - Encounter for examination and observation following other accident - Nicotine dependence, unspecified, uncomplicated - Parkinson's disease - Allergy to seafood - Type 2 diabetes mellitus without complications - Other rodent exterminator (current) drug therapy - Allergy status to narcotic agent - Bee allergy status - Unspecified fall, initial encounter 01/23/2021 11:40 [facility] [place] TYPE: Emergency COMPLAINT: - BLOOD PRESSURE PROBLEM DIAGNOSES: - Allergy status to narcotic agent - Allergy to seafood - manager intermediate (current) use of insulin - Bee allergy status - Nicotine dependence, unspecified, uncomplicated - Chest pain, unspecified - Saddle embolus of pulmonary artery without acute cor pulmonale - Allergy status to penicillin - Type 2 diabetes mellitus with hyperglycemia - Parkinson's disease - Other usp (current) drug therapy 01/10/2021 18:39 [facility] [place] TYPE: Emergency COMPLAINT: - RT FOOT PAIN/NO INJ DIAGNOSES: - Allergy status to penicillin - Pain in right foot - Type 2 diabetes mellitus with diabetic neuropathy, unspecified - Allergy status to narcotic agent - manager intermediate (current) use of insulin - Type 2 diabetes mellitus with diabetic peripheral angiopathy without gangrene - Other rodent exterminator (current) drug therapy - Nicotine dependence, unspecified, uncomplicated 08/26/2020 21:18 [facility] [place] TYPE: Emergency COMPLAINT: - SOB (RELEASED FROM [facility] BLOOD CLOTS 08/25) DIAGNOSES: - Bee allergy status - Parkinson's disease - residential (current) use of insulin - Allergy status to penicillin - Chest pain, unspecified - Nicotine dependence, unspecified, uncomplicated - Other usp (current) drug therapy - Constipation, unspecified - Other pulmonary embolism without acute cor pulmonale - Type 2 diabetes mellitus without complications - Allergy status to narcotic agent 08/22/2020 13:36 [facility] TYPE: Emergency DIAGNOSES: - Acute respiratory failure with hypoxia - Other pulmonary embolism without acute cor pulmonale - Shortness of Breath 08/22/2020 05:50 [facility] TYPE: Emergency COMPLAINT: - SOB,CHEST PAIN DIAGNOSES: - Nicotine dependence, unspecified, uncomplicated - Type 2 diabetes mellitus without complications - Chest pain, unspecified - Allergy status to penicillin - Other rodent exterminator (current) drug therapy - Bee allergy status - Parkinson's disease - manager intermediate (current) use of insulin - Allergy status to narcotic agent - Other pulmonary embolism without acute cor pulmonale INPATIENT VISIT TRACKING (12 MO.) [facility] DIAGNOSES: - Cellulitis of right lower limb - Pressure ulcer of other site, unspecified stage - residential (current) use of insulin - Heart failure, unspecified - Cellulitis of left upper limb - Acquired absence of right leg below knee - Type 2 diabetes mellitus with diabetic polyneuropathy - 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 [place] TYPE: Intermediate Care DIAGNOSES: - Gangrene, not elsewhere classified - Atherosclerosis of [place] arteries of right leg with ulceration of other part of foot - Other pulmonary embolism without acute cor pulmonale - Atheroembolism of unspecified lower extremity 08/22/2020 13:36 [facility] TYPE: Internal Medicine DIAGNOSES: - Encounter for screening for malignant neoplasm of colon - Acute respiratory failure with hypoxia - Other pulmonary embolism without acute cor pulmonale [email or web address]
[2021-07-13] MEDS ORDERED: PANTOPRAZOLE SO40 MG PO (12:28)
[2021-07-13] MEDS ORDERED: LISINOPRIL5 MG PO (12:28)
[2021-07-13] MEDS ORDERED: METOPROLOL SUCC25 MG PO (12:28)
[2021-07-13] MEDS ORDERED: IBUPROFEN600 MG PO (12:29)
--- NOTE | 2021-07-14 16:32 | EKG ---
[facility] [address] [place] [address] Signed Normal sinus rhythm Possible Lateral infarct (cited on or before 03-JUL-2021) Inferior infarct (cited on or before 03-JUL-2021) Abnormal ECG When compared with ECG of 03-JUL-2021 08:12, Vent. rate has decreased BY 40 BPM Questionable change in initial forces of Anterolateral leads Nonspecific T wave abnormality, worse in Anterior leads Confirmed by JULIANA HOLM DO ([id number]) on 07/14/2021 4:32:00 PM Electronically Signed By: JULIANA HOLM DO 07/14/21 163 PATIENT NAME: MARGARITA LENTZ JR Electrocardiogram DATE OF : 61 PHYSICIAN: JULIANA HOLM DO REPORT #: [id number] REPORT IS CONFIDENTIAL AND NOT TO BE RELEASED WITHOUT AUTHORIZATION
== END 2021-07-13 22:30 | disposition home or self-care (01) ==
LOC: ED 12:01
DX: T81.31XA Disruption of external operation (surgical) wound, not elsewhere classified, initial encounter (principal); L02.414 Cutaneous abscess of left upper limb; E11.9 Type 2 diabetes mellitus without complications; G20 Parkinson's disease; I25.2 Old myocardial infarction; F17.200 Nicotine dependence, unspecified, uncomplicated; Z91.013 Allergy to seafood; Z88.0 Allergy status to penicillin; Z88.8 Allergy status to other drugs, medicaments and biological substances; Z91.030 Bee allergy status; Z88.5 Allergy status to narcotic agent; Z79.899 Other long term (current) drug therapy; Z79.4 Long term (current) use of insulin
CPT/HCPCS: 73080; 80048; 80503; 83605; 84484; 85025; 87040; 93005; 93010; 99284-25; A9270; J2270; J2405; J7030; Q9967

== ENCOUNTER 2021-07-14 01:19 | Emergency (ER) | payer OTHER ==
[~2021-07-14] VITALS: Ht 177.8 cm; Wt 96.6 kg
[~2021-07-14 01:19] MED LIST changes: +IBUPROFEN600 MG PO; +LISINOPRIL5 MG PO; +METOPROLOL SUCC25 MG PO; +PANTOPRAZOLE SO40 MG PO
--- OUTSIDE RECORDS SUMMARY | 2021-07-14 01:22 | XMS ---
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 CRITERIA MET - 6 ED Visits in 6 Months - [facility] - Has Care Guidelines - [facility] - 2 Visits in 30 Days CARE PROVIDERS Whit Rosas American History Teacher/Direct Marketing Analyst 02/06/2021-Current PHONE: [phone] KIRSTY RICH 11/23/2019-Current PHONE: Unknown Jory Rico American History Teacher/Direct Marketing Analyst 06/05/2021-Current PHONE: [phone] SARAHI JAVED Family Medicine 08/23/2020-Current PHONE: [phone] Guidelines Source: [employer] [facility] Guidelines Date: 03/18/2021 Care Coordination: Engaged in Mental Health Serivces through [employer].\T\nbsp;Please contact [employer] with mental health concerns.\T\nbsp; [place] \T\nbsp; Martha: [phone] Crisis: [phone] Care History Medical/Surgical 05/27/2021 [facility] - W IS UNABLE TO CONTACT PATIENT- PHONE NUMBER LISTED IS NO LONGER IN SERVICE. - PLEASE CONTACT CASE MANAGEMENT IF PATIENT IS SEEN IN THE ED DURING BUSINESS HOURS. 08/27/2020 [facility] - W CONTACTED PATIENT- PATIENT WAS WITH HIS FRIEND WHO IS VISITING FROM [place]- AT [facility] GETTING BREAKFAST. - PATIENT IS SOUNDING SHORT OF BREATH AND COUGHING ALOT- [facility] CONCERNED FOR PATIENT AND DISCUSSED AN APT WITH PCP PATIENT STATED HE HAS AN APT WITH DR JAVED ON Thursday08/29/20 AT 3:20PM. THAT IS THE EARLIEST APT CONFIRMED WITH [facility]- PATIENT WAS REFERRED TO URGENT CARE AND OR ER IF SYMPTOMS PROGRESS. - PATIENT FRIEND IS GOING TO BICYCLE RENTAL CLERK MEDICATIONS FROM [facility] TODAY. - PATIENT IS AWARE OF THE MEDICAL TRANSPORT NUMBER AND USES IT WHEN HE NEEDS TRANSPORT TO [facility]. E.D. VISIT COUNT (12 MO.) 1 [facility] [address] [facility] [address] [facility] TOTAL 15 NOTE: Visits indicate total known visits. ED/UCC VISIT TRACKING (12 MO.) 07/14/2021 01:20 [facility] [place] TYPE: Emergency COMPLAINT: - CHEST PAIN, RAPID HEART RATE 07/13/2021 12:03 [facility] [place] TYPE: Emergency COMPLAINT: - POST SURGICAL ISSUE L ELBOW 07/03/2021 06:17 [facility] [place] TYPE: Emergency COMPLAINT: - CHEST PAIN DIAGNOSES: - Non-ST elevation (NSTEMI) myocardial infarction - terminal operations supervisor (current) use of insulin - Parkinson's disease - Other medical terminologist (current) drug therapy - Type 2 diabetes [...] - Nicotine dependence, unspecified, uncomplicated - Other medical terminologist (current) drug therapy - Allergy to seafood - Cellulitis of right lower limb - Allergy status to penicillin - skilled nursing (current) use of insulin 05/18/2021 16:59 [facility] [place] TYPE: Emergency COMPLAINT: - ABD PAIN DIAGNOSES: - Other shelter (current) drug therapy - Allergy to seafood - terminal operations supervisor (current) use of insulin - Infection of [...] amputation stump, right lower extremity - Other medical terminologist (current) drug therapy - Allergy to seafood - skilled nursing (current) use of insulin - Allergy status to narcotic agent - Parkinson's disease - Allergy status to penicillin 03/11/2021 22:45 [facility] [place] TYPE: Emergency COMPLAINT: - RT LEG WOUND DIAGNOSES: - Sepsis, unspecified organism - Nicotine dependence, unspecified, uncomplicated - Allergy to seafood - Sepsis following a procedure, initial encounter - Allergy status to penicillin - Radiographic dye allergy status - skilled nursing (current) use of insulin - Type 2 diabetes mellitus with ketoacidosis without coma - Other insect allergy status - Allergy status to narcotic agent 03/10/2021 14:43 [facility] [place] TYPE: Emergency COMPLAINT: - ABDOMINAL PAIN,BLOOD IN URINE DIAGNOSES: - Type 2 diabetes mellitus without complications - Other shelter (current) drug therapy - Dysuria - Nicotine dependence, unspecified, uncomplicated - Allergy status to narcotic agent - Dehydration - Other insect allergy status - Allergy status to penicillin - skilled nursing (current) use of insulin - Allergy to seafood - Parkinson's disease - Radiographic dye allergy status - Dorsalgia, unspecified 03/07/2021 11:17 [facility] [place] TYPE: Emergency COMPLAINT: - DIFFICULTY BREATHING DIAGNOSES: - Nicotine dependence, unspecified, uncomplicated - terminal operations supervisor (current) use of insulin - Allergy status to penicillin - Allergy status to other drugs, medicaments and biological substances - Shortness of breath - Parkinson's disease - Other pulmonary embolism without acute cor pulmonale - Anxiety disorder, unspecified - Allergy to seafood - Type 2 diabetes mellitus without complications - Other shelter (current) drug therapy - Allergy status to narcotic agent 02/07/2021 14:[address] [facility] [address] [facility] [place] TYPE: Emergency COMPLAINT: - FALL, R LEG PAIN DIAGNOSES: - Allergy status to penicillin - Acquired absence of right leg below knee - skilled nursing (current) use of insulin - Encounter for examination and observation following other accident - Nicotine dependence, unspecified, uncomplicated - Parkinson's disease - Allergy to seafood - Type 2 diabetes mellitus without complications - Other shelter (current) drug therapy - Allergy status to narcotic agent - Bee allergy status - Unspecified fall, initial encounter 01/23/2021 11:40 [facility] [place] TYPE: Emergency COMPLAINT: - BLOOD PRESSURE PROBLEM DIAGNOSES: - Allergy status to narcotic agent - Allergy to seafood - terminal operations supervisor (current) use of insulin - Bee allergy status - Nicotine dependence, unspecified, uncomplicated - Chest pain, unspecified - Saddle embolus of pulmonary artery without acute cor pulmonale - Allergy status to penicillin - Type 2 diabetes mellitus with hyperglycemia - Parkinson's disease - Other medical terminologist (current) drug therapy 01/10/2021 18:39 [facility] [place] TYPE: Emergency COMPLAINT: - RT FOOT PAIN/NO INJ DIAGNOSES: - Allergy status to penicillin - Pain in right foot - Type 2 diabetes mellitus with diabetic neuropathy, unspecified - Allergy status to narcotic agent - skilled nursing (current) use of insulin - Type 2 diabetes mellitus with diabetic peripheral angiopathy without gangrene - Other shelter (current) drug therapy - Nicotine dependence, unspecified, uncomplicated 08/26/2020 21:18 [facility] [place] TYPE: Emergency COMPLAINT: - SOB (RELEASED FROM [facility] BLOOD CLOTS 08/25) DIAGNOSES: - Bee allergy status - Parkinson's disease - skilled nursing (current) use of insulin - Allergy status to penicillin - Chest pain, unspecified - Nicotine dependence, unspecified, uncomplicated - Other medical terminologist (current) drug therapy - Constipation, unspecified - Other pulmonary embolism without acute cor pulmonale - Type 2 diabetes mellitus without complications - Allergy status to narcotic agent 08/22/2020 13:36 [facility] TYPE: Emergency DIAGNOSES: - Acute respiratory failure with hypoxia - Other pulmonary embolism without acute cor pulmonale - Shortness of Breath 08/22/2020 05:50 [facility] TYPE: Emergency COMPLAINT: - SOB,CHEST PAIN DIAGNOSES: - Nicotine dependence, unspecified, uncomplicated - Type 2 diabetes mellitus without complications - Chest pain, unspecified - Allergy status to penicillin - Other shelter (current) drug therapy - Bee allergy status - Parkinson's disease - skilled nursing (current) use of insulin - Allergy status to narcotic agent - Other pulmonary embolism without acute cor pulmonale INPATIENT VISIT TRACKING (12 MO.) 07[facility]03[facility]2021 09:54 [facility] DIAGNOSES: - Cellulitis of right lower limb - Pressure ulcer of other site, unspecified stage - skilled nursing (current) use of insulin - Heart failure, [...] left anterior descending coronary artery 03/12/2021 07:38 [facility] [place] TYPE: Medical Surgical COMPLAINT: - SEPSIS DIAGNOSES: - SEPSIS 01/23/2021 23:03 [facility] [place] TYPE: Intermediate Care DIAGNOSES: - Gangrene, not elsewhere classified - Atherosclerosis of [place] arteries of right leg with ulceration of other part of foot - Other pulmonary embolism without acute cor pulmonale - Atheroembolism of unspecified lower extremity 08/22/2020 13:36 [facility] DIAGNOSES: - Encounter for screening for malignant neoplasm of colon - Acute respiratory failure with hypoxia - Other pulmonary embolism without acute cor pulmonale [email or web address]
--- NOTE | 2021-07-14 16:32 | EKG ---
[facility] [address] [place] [address] Signed Sinus tachycardia Left axis deviation Right bundle branch block Possible Lateral infarct (cited on or before 03-JUL-2021) Inferior infarct (cited on or before 03-JUL-2021) Abnormal ECG When compared with ECG of 13-JUL-2021 14:35, (Unconfirmed) Vent. rate has increased BY 54 BPM Right bundle branch block is now present Questionable change in initial forces of Lateral leads Confirmed by JULIANA HOLM DO ([id number]) on 07/14/2021 4:32:17 PM Electronically Signed By: JULIANA HOLM DO 07/14/[id number] PATIENT NAME: MARGARITA LENTZ Electrocardiogram DATE OF : 61 PHYSICIAN: JULIANA HOLM DO REPORT #: [id number] REPORT IS CONFIDENTIAL AND NOT TO BE RELEASED WITHOUT AUTHORIZATION
== END 2021-07-14 06:25 ==
LOC: ED 01:19
DX: I46.9 Cardiac arrest, cause unspecified (principal); I47.2 Ventricular tachycardia; E11.9 Type 2 diabetes mellitus without complications; G20 Parkinson's disease; I25.2 Old myocardial infarction; F17.200 Nicotine dependence, unspecified, uncomplicated; Z88.0 Allergy status to penicillin; Z88.5 Allergy status to narcotic agent; Z91.013 Allergy to seafood; Z91.030 Bee allergy status; Z79.899 Other long term (current) drug therapy; Z79.4 Long term (current) use of insulin
CPT/HCPCS: 31500; 80053; 83690; 84484; 85025; 92950; 93005; 93010; 94799; 96374; 99285-25; J0171; J0330